=== PATIENT | female | born 1935 | race Caucasian/White ===

== ENCOUNTER 2017-12-21 17:15 | Observation (INO) | payer OTHER ==
--- OUTSIDE RECORDS SUMMARY | 2017-12-21 17:18 | XMS REPORT | Clinical Summary ---
:1935 Author Organization [facility] Address [address] [place] [address] Care Team Providers Name Role Phone Kvng Leal MD Primary Care Provider Allergies Active Allergy Reactions Severity Noted Date Comments Dye 11/26/2015 Probable contrast dye allergy Penicillins 11/26/2015 Current Medications Prescription Sig. Disp. Refills Start End Status Date Date ALPRAZolam (XANAX) 0.5 TAKE 1 TABLET BY Active MG tablet MOUTH TWICE A DAY NEEDED FOR ANXIETY fluvastatin XL (LESCOL fluvastatin ER 80 Active XL) 80 mg 24 hr tablet mg tablet,extended release 24 hr aspirin (ECOTRIN) 81 Take 1 tablet(s) Active MG enteric coated every day by oral tablet route. levothyroxine levothyroxine 75 Active (SYNTHROID, mcg tablet LEVOTHROID) 75 MCG tablet cholecalciferol, Take 1,000 Units Active vitamin D3, (VITAMIN by mouth daily. D3) 1,000 unit tablet Ca carb-D3-mag Take 300 mg by Active [id number] mouth 2 (two) (CALTRATE + D3 PLUS times a day. MINERALS) 300 mg-800 unit -25 mg-0.5 mg tablet multivitamin with Take 1 tablet by Active minerals tablet mouth 2 (two) times a day. coenzyme Q10 100 mg Take 200 mg by Active capsule mouth 2 (two) times a day. yvqlz-5i-ntn-epa-fish Take 1,200 mg by Active oil (FISH OIL) mouth 2 (two) 720-1,200 mg capsule times a day. meclizine (ANTIVERT) Take 25 mg by Active 25 mg tablet mouth 3 (three) times a day as needed for dizziness. balsalazide (COLAZAL) Take 2,250 mg by Active 750 mg capsule mouth 3 (three) times a day. HUMIRA 40 mg/0.8 mL INJECT 0.8ML 2 mL 2 04/09/20 Active injectionIndications: (40MG TOTAL) 17 018 Ankylosing spondylitis UNDER THE SKIN EVERY 14 DAYS pyridoxine, vitamin Take 100 mg by Active B6, (B-6) 100 MG mouth 3 (three) tablet times a day. LACTOBACILLUS Take by mouth. Active ACIDOPHILUS (PROBIOTIC ACIDOPHILUS ORAL) pantoprazole Take 1 tablet (20 90 tablet 1 07/02/19 Active (PROTONIX) 20 MG EC mg total) by 18 tablet mouth daily. quinapril (ACCUPRIL) Take 1 tablet (20 90 tablet 3 07/27/19 Active 20 MG tablet mg total) by 18 019 mouth nightly. ezetimibe (ZETIA) 10 Take 1 tablet (10 90 tablet 3 07/27/19 Active mg tabletIndications: mg total) by 18 Hypercholesteremia mouth once daily. amLODIPine (NORVASC) amlodipine 2.5 mg Discontinued 2.5 MG tablet tablet 018 betamethasone valerate APPLY ONCE DAILY Discontinued 0.12 % foam AFTER SHOWER FOR 017 1 TO 2 WKS NEEDED pantoprazole Take 1 tablet (20 90 tablet 3 06/24/ (PROTONIX) 20 MG EC mg total) by 17 018 tablet mouth daily. ezetimibe (ZETIA) 10 Take 1 tablet (10 90 tablet 3 07/01/19 Discontinued mg tabletIndications: mg total) by 17 018 Hypercholesteremia mouth once daily. pantoprazole TAKE 1 TABLET BY 90 tablet 1 08/05/ Discontinued (PROTONIX) 20 MG EC MOUTH EVERY DAY 17 018 tablet HUMIRA 40 mg/0.8 mL INJECT 0.8ML 2 mL 2 11/25/19 Discontinued injectionIndications: (40MG TOTAL) 17 017 Ankylosing spondylitis UNDER THE SKIN EVERY 14 DAYS quinapril-hydrochlorot Take 1 tablet by 30 tablet 0 12/16/19 Discontinued hiazide (ACCURETIC) mouth daily. 17 017 20-12.5 mg per tabletIndications: Essential hypertension HUMIRA 40 mg/0.8 mL INJECT 0.8ML 3.92 mL 1 02/16/20 Discontinued injectionIndications: (40MG TOTAL) 17 017 Ankylosing spondylitis UNDER THE SKIN EVERY 14 DAYS quinapril-hydrochlorot Take 1 tablet by 90 tablet 3 03/18/20 Discontinued hiazide (ACCURETIC) mouth daily. 17 018 20-12.5 mg per tabletIndications: Essential hypertension cyanocobalamin 500 MCG Take 500 mcg by Discontinued tablet mouth 2 (two) 018 times a day. quinapril-hydrochlorot Take 1 tablet by 90 tablet 1 07/02/19 Discontinued hiazide (ACCURETIC) mouth daily. 18 018 20-12.5 mg per tabletIndications: Essential hypertension quinapril (ACCUPRIL) Take 1 tablet (20 30 tablet 5 07/05/19 Discontinued 20 MG tablet mg total) by 18 018 mouth nightly. 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 Hypercholesteremia 11/26/2015 Hypertension 11/26/2015 Hypothyroidism 11/26/2015 Encounters Date Type Specialty Care Team Description 10/06/2017 Orders Only Rheumatology ProviderKam MD 10/05/2017 Office Visit Rheumatology Amy Mccracken, Ankylosing spondylitis of multiple sites in spine (Primary Dx); Enteropathic arthritis; High risk medication use; Localized edema; Paresthesia; Ulcerative colitis without complications, unspecified location 08/19/2017 Telephone Cardiology Celestino Barcenas MA Results (carotid ULTRA + vein duplex) 08/19/2017 Orders Only Cardiology Celestino Barcenas MA 08/05/2017 Orders Only Cardiology Amanuel, DVT (deep vein thrombosis) BORIS Dyer in (Primary Dx) 07/27/2017 Office Visit Cardiology Sun Bertrand Bilateral carotid bruits ( Primary Dx); MD Oscar Hypercholesteremia 07/05/2017 Refill Rheumatology Sarah Shelby MA 07/02/2017 Refill Rheumatology Sarah Shelby MA Essential hypertension 07/02/2017 Orders Only Rheumatology Kam Horta MD 06/28/2017 Office Visit Rheumatology Amy Mccracken Ankylosing spondylitis of multiple sites in spine (Primary Dx); Enteropathic arthritis; Malignant neoplasm of ascending colon 05/05/2017 Telephone Rheumatology Sarah Shelby MA 04/09/2017 Refill Rheumatology Amy Mccracken Ankylosing spondylitis MD 03/18/2017 Refill Cardiology Lorna, Med Refill BORIS Corral 02/15/2017 Refill Rheumatology Amy Mccracken Ankylosing spondylnica HOFFMAN 01/13/2017 Telephone Rheumatology Sarah Shelby MA 12/24/2016 Orders Only Rheumatology ProviderKam MD 12/23/2016 Hospital Encounter Radiology Keyona Winston Visit for screening MD Ghazal mammogram 12/23/2016 Office Visit Rheumatology Amy Mccracken Ankylosing spondylnica (Primary Dx); Anemia of chronic disease; Enteropathic arthritis; Special screening for malignant neoplasm after 12/20/2016 Social History Tobacco Use Types Packs/Day Years Used Date Never Smoker Alcohol Use Drinks/Week oz/Week Comments No Sex Assigned at Date Recorded Not on file Last Filed Vital Signs Vital Sign Reading Time Taken Blood Pressure 124/70 07/27/2017 1:28 PM [employer] Pulse 80 07/27/2017 1:27 PM [employer] Temperature - - Respiratory Rate - - Oxygen Saturation - - Inhaled Oxygen Concentration - - Weight 62.6 kg (138 lb) 07/27/2017 1:27 PM [employer] Height 160 cm (5' 3") 06/28/2017 11:19 AM [employer] Body Mass Index 24.45 07/27/2017 1:27 PM [employer] Plan of Treatment Date Type Specialty Care Team Description 12/28/2017 Office Visit Cardiology Sun Bertrand MD [address] [place] [address] 03/31/2018 [place] [address] [facility] [address] [place] [address] Health Maintenance Due Date Last Done Comments SHINGRIX VACCINE (#1) 1985 ZOSTER VACCINE 1995 PNEUMOCOCCAL POLYSACCHARIDE VACCINE AGE 65 AND OVER 2000 PNEUMOCOCCAL-13 2000 INFLUENZA VACCINE 12/29/2017 Procedures Procedure Name Priority Date/Time Associated Diagnosis Comments VITAMIN B12 LEVEL Routine 10/05/2017 12:43 Paresthesia Results for this PM CDT procedure are in the results section. [id number] Routine 09/25/2017 12:00 AM CDT US CAROTID DUPLEX Routine 08/05/2017 2:41 Bilateral carotid Results for this BILATERAL PM [employer] bruits procedure are in the results section. US DUPLEX VENOUS Routine 08/05/2017 2:36 DVT (deep vein Results for this LOWER EXTREMITY LEFT PM [employer] thrombosis) in procedure are in the results section. [id number] Routine 06/20/2017 12:00 AM [employer] MAMMO SCREENING W CAD Routine 12/23/2016 2:58 Visit for screening Results for this BILATERAL PM CDT mammogram procedure are in the results section. HAPTOGLOBIN Routine 12/23/2016 12:15 Anemia of chronic Results for this PM CDT disease procedure are in the results section. ANTIBODY SCREEN Routine 12/23/2016 12:15 Anemia of chronic Results for this PM CDT disease procedure are in the results section. FOLATE RBC (GROUP Routine 12/23/2016 12:15 Anemia of chronic Results for this TEST) PM CDT disease procedure are in the results section. VITAMIN B12 LEVEL Routine 12/23/2016 12:15 Anemia of chronic Results for this PM CDT disease procedure are in the results section. RETICULOCYTE COUNT, Routine 12/23/2016 12:15 Anemia of chronic Results for this AUTOMATED PM CDT disease procedure are in the results section. HLA-B27 ANTIGEN Routine 12/23/2016 12:15 Ankylosing Results for this PM CDT spondylitis procedure are in the results section. after 12/20/2016 Results Vitamin B12 level (10/05/2017 12:43 PM)Only the most recent of2 resultswithin the time period is included. Vitamin B12 >2000 (H) 232 - 1245 pg/mL [facility] Specimen Blood Narrative Performed At Performed at:01 - [facility], [id number] B Operator: Emanuel Kenny MD, Phone:[phone] Performing Organization Address City/State/Zipcode Phone Number [facility] Miscellaneous Lab Result (09/25/2017)Only the most recent of2 resultswithin the time period is included. Specimen Blood Narrative Performed At Pv carotid duplex (08/05/2017 2:41 PM) Narrative Performed At [facility] Carotid Artery Ultrasound Report Pat.Name:Wei AGUILAR.ID:[id number] .Date: 08/05/2017Refer.MD:SUN BERTRAND MD Exam Time: 1:51:00 PMStudy Type:Carotid DOBAge:1935,82Y Sex: FEMALE Sonogrphr: Luann Ledezma RDMS, RDCS, RVT Pat. Stat.:Outpatient Room:[place] [address]: [id number] Echo Event ID:[id number] Order ID:[id number] Reason for Study:Carotid bruit bilateral Race:C SUMMARY: PHYSICAL ASSESSMENT BloodPulsesCarotid Pressure Carotid TemporalBruit Right 172/70 ++0 Left 168/68 ++0 CAROTID ARTERY SCAN RIGHT:There is irregular, hard and calcified plaque in the common carotid artery. There is hard plaque noted in the bulb extending into the proximal internal and external carotid artery.Colorflow is minimally disturbed.Vertebral artery flow is antegrade. LEFT: There is intimal thickeningin the common carotid artery. There is irregular, hard and calcified plaque noted in the bulb extending into the proximal internal and external carotid artery. The distalinternal carotid artery is tortuous. Internal carotid arteries are not hemodynamically significant.Vertebral artery flow is normal. PRELIMINARY FINDINGS <50%stenosis in the bilateral internal carotid artery. PHYSICIAN INTERPRETATION Bilateral carotid artery examination demonstrates plaque in the bilateral internal carotid artery without hemodynamically significant stenosis. (<50%) Carotid Findings:RightLeft Verteb.Flw AntegradeAntegrade Subclavian TriphasicTriphasic MEASUREMENTS: DOPPLER Right SCA Prox SCA Prox PSV 113 cm/sSCA Prox EDV 0 cm/s Right CCA Dist CCA Dist PSV90 cm/sCCA Dist EDV13.9 cm/s Right CCA Mid CCA Mid PSV 98.9 cm/sCCA Mid EDV 11.1 cm/s Right CCA Prox CCA Prox PSV66.2 cm/sCCA Prox EDV9.05 cm/s Right Bulb Bulb PSV 106 cm/sBulb EDV13.3 cm/s Right ECA Prox ECA Prox PSV 111 cm/sECA Prox EDV 0 cm/s Right ICA Dist ICA Dist PSV69.3 cm/Gerard Dist EDV9.24 cm/s Right ICA Mid ICA Mid PSV 94.2 cm/Gerard Mid EDV 9.42 cm/s Right ICA Prox ICA Prox PSV82.9 cm/Gerard Prox EDV5.92 cm/s Right Vertebral Vertebral PSV 35.6 cm/sVertebral EDV 3.96 cm/s Left SCA Prox SCA Prox PSV 152 cm/sSCA Prox EDV 0 cm/s Left CCA Dist CCA Dist PSV84.1 cm/sCCA Dist EDV13.6 cm/s Left CCA Mid CCA Mid PSV 89.8 cm/sCCA Mid EDV 9.16 cm/s Left CCA Prox CCA Prox PSV77.3 cm/sCCA Prox EDV4.83 cm/s Left Bulb Bulb PSV84.4 cm/sBulb EDV8.79 cm/s Left ECA Prox ECA Prox PSV 128 cm/sECA Prox EDV 0 cm/s Left ICA Dist ICA Dist PSV69.7 cm/Gerard Dist EDV9.96 cm/s Left ICA Mid ICA Mid DMM715 cm/Gerard Mid EDV 32 cm/s Left ICA Prox ICA Prox PSV75.6 cm/Gerard Prox EDV10.5 cm/s Left Vertebral Vertebral PSV 45.4 cm/sVertebral EDV 5.67 cm/s Right ICA/CCA Ratio ICA/CCA PSV0.838 Left ICA/CCA Ratio ICA/CCA PSV0.842 Signed 08/16/2017 10:58 AM Sun Bertrand MD Procedure Note Interface, Radiology Results In - 08/16/2017 10:58 AM CDT [facility] Carotid Artery Ultrasound Report Pat.Name: RADHA AGUILAR Pat.ID: [id number] St.Date: 08/05/2017 Refer.MD: SUN BERTRAND MD Exam Time: 1:51:00 PM Study Type:Carotid Age: 1 1935,82Y Sex: FEMALE Sonogrphr: Luann Ledezma, LAURA, RDCS, RVT Pat. Stat.:Outpatient Room: [facility] 4: [id number] Echo Event ID:[id number] Order ID: [id number] Reason for Study:Carotid bruit bilateral Race: C SUMMARY: PHYSICAL ASSESSMENT Blood Pulses Carotid Pressure Carotid Temporal Bruit Right 172/70 + + 0 Left 168/68 + + 0 CAROTID ARTERY SCAN RIGHT: There is irregular, hard and calcified plaque in the common carotid artery. There is hard plaque noted in the bulb extending into the proximal internal and external carotid artery. Colorflow is minimally disturbed. Vertebral artery flow is antegrade. LEFT: There is intimal thickening in the common carotid artery. There is irregular, hard and calcified plaque noted in the bulb extending into the proximal internal and external carotid artery. The distal internal carotid artery is tortuous. Internal carotid arteries are not hemodynamically significant. Vertebral artery flow is normal. PRELIMINARY FINDINGS <50% stenosis in the bilateral internal carotid artery. PHYSICIAN INTERPRETATION Bilateral carotid artery examination demonstrates plaque in the bilateral internal carotid artery without hemodynamically significant stenosis. (<50%) Carotid Findings: Right Left Verteb.Flw Antegrade Antegrade Subclavian Triphasic Triphasic MEASUREMENTS: DOPPLER Right SCA Prox SCA Prox PSV 113 cm/s SCA Prox EDV 0 cm/s Right CCA Dist CCA Dist PSV 90 cm/s CCA Dist EDV 13.9 cm/s Right CCA Mid CCA Mid PSV 98.9 cm/s CCA Mid EDV 11.1 cm/s Right CCA Prox CCA Prox PSV 66.2 cm/s CCA Prox EDV 9.05 cm/s Right Bulb Bulb PSV 106 cm/s Bulb EDV 13.3 cm/s Right ECA Prox ECA Prox PSV 111 cm/s ECA Prox EDV 0 cm/s Right ICA Dist ICA Dist PSV 69.3 cm/s ICA Dist EDV 9.24 cm/s Right ICA Mid ICA Mid PSV 94.2 cm/s ICA Mid EDV 9.42 cm/s Right ICA Prox ICA Prox PSV 82.9 cm/s ICA Prox EDV 5.92 cm/s Right Vertebral Vertebral PSV 35.6 cm/s Vertebral EDV 3.96 cm/s Left SCA Prox SCA Prox PSV 152 cm/s SCA Prox EDV 0 cm/s Left CCA Dist CCA Dist PSV 84.1 cm/s CCA Dist EDV 13.6 cm/s Left CCA Mid CCA Mid PSV 89.8 cm/s CCA Mid EDV 9.16 cm/s Left CCA Prox CCA Prox PSV 77.3 cm/s CCA Prox EDV 4.83 cm/s Left Bulb Bulb PSV 84.4 cm/s Bulb EDV 8.79 cm/s Left ECA Prox ECA Prox PSV 128 cm/s ECA Prox EDV 0 cm/s Left ICA Dist ICA Dist PSV 69.7 cm/s ICA Dist EDV 9.96 cm/s Left ICA Mid ICA Mid PSV 150 cm/s ICA Mid EDV 32 cm/s Left ICA Prox ICA Prox PSV 75.6 cm/s ICA Prox EDV 10.5 cm/s Left Vertebral Vertebral PSV 45.4 cm/s Vertebral EDV 5.67 cm/s Right ICA/CCA Ratio ICA/CCA PSV 0.838 Left ICA/CCA Ratio ICA/CCA PSV 0.842 Signed 08/16/2017 10:58 AM Sun Bertrand MD Performing Organization Address City/State/Zipcode Phone Number [facility] [address] [place] [address] Pv duplex venous lower extremity (08/05/2017 2:36 PM) Narrative Performed At [facility].Name:Wei AGUILAR.ID:[id number] .Date: 08/05/2017Refer.MD:SUN BERTRAND MD Exam Time: 2:28:00 PMStudy Type:Vascular DOBAge:1935,82Y Sex: FEMALE Sonogrphr: Luann Ledezma, JANISMS, RDCS, RVT Pat. Stat.:Outpatient Room:[place] [address] Echo Event ID:[id number] Order ID:[id number] Reason for Study:Left leg swelling, chemotherapy Race:C SUMMARY: * Normal Reflux Criteria:< 0.5 seconds * Abnormal Reflux Criteria:> or equal to 0.5 seconds DUPLEX SCAN OBSERVATIONS Deep VeinsSuperficial Veins Left RightLeft EIV NormalGSV (prox) NormalNormal CFV Normal (above knee) Femoral Normal GSV (dist) Normal Normal Profunda Normal (below knee) Popliteal Normal PT (prox) NormalSSV Normal Normal PT (dist) Normal Peroneal Normal PRELIMINARY FINDINGS There is normal compressibility with no evidence of echogenic material noted within the lumen of the visualized veins.Colorflow and Doppler signals are normal. PHYSICIAN INTERPRETATION Venous examination of the left lower extremity demonstrates no deep vein thrombosis of the left lower extremity. Signed 08/16/2017 10:57 AM Sun Bertrand MD Procedure Note Interface, Radiology Results In - 08/16/2017 10:57 AM CDT Pat.Name: RADHA AGUILAR Kelley.ID: [id number] .Date: 08/05/2017 Refer.MD: SUN BERTRAND MD Exam Time: 2:28:00 PM Study Type:Vascular Age: 1 1935,82Y Sex: FEMALE Sonogrphr: Luann Ledezma, LAURA, RDCS, RVT Pat. Stat.:Outpatient Room: [facility] - 4: [address] Echo Event ID:[id number] Order ID: [id number] Reason for Study:Left leg swelling, chemotherapy Race: C SUMMARY: * Normal Reflux Criteria: < 0.5 seconds * Abnormal Reflux Criteria: > or equal to 0.5 seconds DUPLEX SCAN OBSERVATIONS Deep Veins Superficial Veins Left Right Left EIV Normal GSV (prox) Normal Normal CFV Normal (above knee) Femoral Normal GSV (dist) Normal Normal Profunda Normal (below knee) Popliteal Normal PT (prox) Normal SSV Normal Normal PT (dist) Normal Peroneal Normal PRELIMINARY FINDINGS There is normal compressibility with no evidence of echogenic material noted within the lumen of the visualized veins. Colorflow and Doppler signals are normal. PHYSICIAN INTERPRETATION Venous examination of the left lower extremity demonstrates no deep vein thrombosis of the left lower extremity. Signed 08/16/2017 10:57 AM Sun Bertrand MD Performing Organization Address [facility] Phone Number [facility] [address] [place] [address] Mammo Screening w Cad Bilateral (12/23/2016 2:58 PM) Narrative Performed At EXAMINATION:MAMMO SCREENING W CAD BILATERAL [place] Computer-assisted detection was utilized in the interpretation of this exam. COMPARISONS:04/18/2014-03/24/2012 INDICATION:Routine screening FINDINGS: The breast parenchyma is predominantly fatty. There is no significant change when compared to previous examinations. IMPRESSION: No mammographic evidence of malignancy. RECOMMENDATION: Annual mammography and correlation with physical examination. BI-RADS 2: BENIGN DWS01 Performing Organization Address [facility] Phone Number [facility] [address] [place] [address] Reticulocyte count, automated (12/23/2016 12:15 PM) Retic count, manual 1.9 0.6 - 2.6 % [facility] Specimen Blood Narrative Performed At Performed at: - [id number] B Operator: Emanuel Kenny MD, Phone:[phone] Performing Organization Address [facility] Phone Number [facility] HLA-B27 antigen (12/23/2016 12:15 PM) HLA B27 Negative [facility] Comment: HLA-B*27 Negative HLA allele interpretation for all loci based on IMGT/HLA database version 3.25.0 This test was developed and its performance characteristics determined by [facility].It has not been cleared or approved by the Food and Drug Administration. [facility] CLIA ID Number [id number] This test was performed using PCR (Polymerase Chain Reaction)/SSOP (Sequence Specific Oligonucleotide Probes) technique.SBT (Sequence Based Typing) and/or SSP (Sequence Specific Primers) may be used as supplemental methods when necessary.Please contact HLA Customer Service at if you have any questions. Director of HLA Laboratory Dr Joby Rapp, PhD Specimen Blood Narrative Performed At Performed at: - [facility] [place] [id number] B Operator: Joby Rapp PhD, Phone:[phone] Performing Organization Address [facility] Phone Number [facility] Antibody screen (12/23/2016 12:15 PM) Antibody screen Negative Negative [facility] Specimen Blood Narrative Performed At Performed at: - Lab[id number] B Operator: Emanuel Kenny MD, Phone:[phone] Performing Organization Address [facility] Phone Number [facility] Haptoglobin (12/23/2016 12:15 PM) Haptoglobin 191 34 - 200 mg/dL [facility] 02 Specimen Blood Narrative Performed At Performed at:02 - [id number] B Operator: Patrick Finney MD, Phone:[phone] Performing Organization Address [facility] Phone Number [facility] Folate RBC (group test) (12/23/2016 12:15 PM) Folate, hemolysate CANCELED ng/mL [facility] Comment: No frozen whole blood received. Result canceled by the ancillary HCT 29.3 (L) 34.0 - 46.6 % [facility] Folate, RBC CANCELED ng/mL [facility] Comment: Unable to calculate result since non-numeric result obtained for component test. Result canceled by the ancillary Specimen Blood Narrative Performed At Performed at:01 - [facility] [address], [id number] B Operator: Emanuel Kenny MD, Phone:[phone] Performing Organization Address City/State/Zipcode Phone Number [facility] after 12/20/2016 Insurance Payer Benefit Plan / Group Subscriber ID Type Phone Address AETNA MEDICARE AETNA MEDICARE HMO/PPO [facility] xxxxxxxx HMO SAMANTHA A y [phone] [id number]
[2017-12-21] MEDS ORDERED: AMLODIPINE 5 MG TAB ONE (18:16)
[2017-12-21 18:46] LABS: Absolute Lymphocytes (CBC) 1.2 K/uL (0.7-4.9); Absolute Monocytes 0.5 K/uL (0.1-1.3); Absolute Neutrophil 4.8 K/uL (1.8-8.0); Basophils % 0.5 % (0-1.3); Eosinophils % 0.9 % (0-4.4); Hematocrit 30.7 % (36.0-45.0); Lymphocytes % 18.9 % (15.3-44.8); MCH 32.2 pg (27.0-35.0); MCV 95.6 fL (80-100); MPV 7.9 fL (7.6-11.3); Monocytes % 6.9 % (3.3-12.3); Protime INR 0.99; RBC Red Blood Cell Count 3.21 M/uL (3.86-4.86)
[2017-12-21 18:52] LABS: ALT/SGPT 14 U/L (12-78); AST/SGOT 20 U/L (15-37); Albumin 3.7 g/dL (3.4-5.0); Alkaline Phosphatase 63 U/L (45-117); BUN Blood Urea Nitrogen 21 mg/dL (7-18); Bicarbonate 29 mmol/L (21-32); Bilirubin Direct 0.1 mg/dL (0-0.2); Bilirubin Total 0.3 mg/dL (0.2-1.0); CKMB Creatine Kinase MB < 1.0 ng/mL (0.3-3.6); Creatine Phosphokinase 45 U/L (26-192); Glucose Level 108 mg/dL (74-106); Magnesium 2.4 mg/dL (1.8-2.4); NT PRO-BNP 506 pg/mL (<450); Potassium 3.6 mmol/L (3.5-5.1); Protein, Total 7.3 g/dL (6.4-8.2); Sodium Level 143 mmol/L (136-145)
--- NOTE | 2017-12-21 19:16 | ER ---
Nurse's Notes [facility] Name: Chasity Aguilar Age: 82 yrs Sex: Female : 1935 Arrival Date: 12/21/2017 Time: 17:18 Bed 5 Private MD: Kvng Leal T Diagnosis: Weakness;Essential (primary) hypertension Presentation: 12/21 17:20 Presenting complaint: Patient states: Sent by home health for high BP. Transition of care: patient was not received from another setting of care. Onset of symptoms was December 21, 2017. Risk Assessment: Do you want to hurt yourself or someone else? Patient reports no desire to harm self or others. Initial Sepsis Screen: Does the patient meet any 2 criteria? No. Patient's initial sepsis screen is negative. Does the patient have a suspected source of infection? No. Patient's initial sepsis screen is negative. Care prior to arrival: None. 17:20 Method Of Arrival: Wheelchair aj 17:20 Acuity: NATE 3 aj Triage Assessment: 17:24 General: Appears in no apparent distress. comfortable, Behavior is calm, cooperative, aj appropriate for age. Pain: Denies pain. Neuro: Level of Consciousness is awake, alert, obeys commands, Oriented to person, place, time, situation, Appropriate for age. Respiratory: Airway is patent Respiratory effort is even, unlabored, Respiratory pattern is regular, symmetrical. Derm: Skin is intact, is healthy with good turgor, Skin is pink, warm \T\ dry. normal. Historical: - Allergies: 17:24 PENICILLINS; aj - Home Meds: 17:24 levothyroxine 75 mcg tab daily, skip Wednesday [Active]; quinapril 20 mg Oral tab 1 tab 2 aj times per day [Active]; balsalazide 750 mg Oral cap 3 caps 3 times per day [Active]; Humira 40 mg/0.8 mL subcutaneous sykt [Active]; fluvastatin 80 mg oral Tb24 1 tab once daily [Active]; Protonix 20 mg oral TbEC 1 tab once daily [Active]; Zetia 10 mg Oral tab 1 tab once daily [Active]; Xanax 0.5 mg Oral tab 1 tab as needed [Active]; meclizine 25 mg Oral tab as needed [Active]; amlodipine 5 mg tab 1 tab once daily [Active]; aspirin 81 mg Oral chew 1 tab once daily [Active]; - PMHx: 17:24 Hypertension; Hypothyroidism; Cancer; aj - PSHx: 17:24 colon resection; aj - Immunization history:: Adult Immunizations up to date. - Social history:: Smoking status: Patient/guardian denies using tobacco. - Ebola Screening: : Patient negative for fever greater than or equal to 101.5 degrees Fahrenheit, and additional compatible Ebola Virus Disease symptoms Patient denies exposure to infectious person Patient denies travel to an Ebola-affected area in the 21 days before illness onset No symptoms or risks identified at this time. - Family history:: not pertinent. Screenin:41 Abuse screen: Denies threats or abuse. Denies injuries from another. Nutritional sv screening: No deficits noted. Tuberculosis screening: No symptoms or risk factors identified. Fall Risk None identified. Assessment: 17:35 General: Appears in no apparent distress. comfortable, Behavior is calm, cooperative, sv appropriate for age. Pain: Denies pain. Neuro: Level of Consciousness is awake, alert, obeys commands, Oriented to person, place, time, situation, Moves all extremities. Full function Gait is steady, Speech is normal, Denies dizziness, numbness headache. Cardiovascular: Denies shortness of breath, Patient's skin is warm and dry. Pulses are 3+ in right radial artery and left radial artery Edema is 1+ to left midcalf and left ankle. Respiratory: Respiratory effort is even, unlabored, Respiratory pattern is regular, symmetrical. GI: No signs and/or symptoms were reported involving the gastrointestinal system. : No signs and/or symptoms were reported regarding the genitourinary system. Derm: Skin is normal, Spouse reports cheeks are flushed. Musculoskeletal: No signs and/or symptoms reported regarding the musculoskeletal system. 18:25 Reassessment: Patient appears in no apparent distress at this time. No changes from sv previously documented assessment. Patient and/or family updated on plan of care and expected duration. Pain level reassessed. Patient is alert, oriented x 3, equal unlabored respirations, skin warm/dry/pink. 19:18 Reassessment: Patient appears in no apparent distress at this time. Patient is alert, lp1 oriented x 3, equal unlabored respirations, skin warm/dry/pink. Assisted patient with bedpan Patient states feeling better. Patient states symptoms have improved. 21:08 Reassessment: report given to Aruna for 412. ak1 Vital Signs: 17:24 BP 236 / 77; Pulse 79; Resp 16; Temp 99.4; Pulse Ox 99% on R/A; Weight 60.33 kg; Height aj 5 ft. 3 in. (160.02 cm); 17:41 BP 182 / 85; Pulse 80; Resp 16; Pulse Ox 100% on R/A; sv 18:10 BP 247 / 86; Pulse 81; Resp 20; Pulse Ox 100% on R/A; tw2 19:18 BP 205 / 74; Pulse 74; Resp 13; Pulse Ox 100% on R/A; Pain 0/10; lp1 19:30 BP 197 / 64; Pulse 72; Resp 20; Pulse Ox 100% on R/A; lp1 19:52 BP 180 / 74; Pulse 77; Resp 14; Pulse Ox 99% on R/A; lp1 20:09 BP 170 / 49; Pulse 83; Resp 20; Pulse Ox 100% on R/A; lp1 21:09 BP 186 / 76; Pulse 80; Resp 22; Temp 98.6(TE); Pulse Ox 100% on R/A; Pain 0/10; ak1 17:24 Body Mass Index 23.56 (60.33 kg, 160.02 cm) ED Course: 17:18 Patient arrived in ED. mr 17:18 Kvng Leal MD is Private Physician. mr 17:21 Triage completed. aj 17:24 Arm band placed on left wrist. Patient placed in an exam room. aj 17:26 Roberto Agrawal MD is Attending Physician. [facility] 17:26 Tiana Pillai, JUDITH is Primary Nurse. sv 17:41 Patient has correct armband on for positive identification. Placed in gown. Bed in low sv position. Call light in reach. Side rails up X2. Adult w/ patient. Pulse ox on. NIBP on. Door closed. Warm blanket given. Head of bed elevated. 17:59 EKG done, by certified dialysis technician. reviewed by Roberto Agrawal MD. 3 18:05 Initial lab(s) drawn, by ma, sent to lab. Accessed Port-a-Cath. using accessed w/ # 20 sv Moore needle, ,sterile technique, per hospital protocol. Clean \T\ dry. Dressing intact. Good blood return. Flushes easily. 18:10 X-ray completed. Portable x-ray completed in exam room. Patient tolerated procedure ag1 well. 18:10 XRAY Chest (1 view) In Process Unspecified. EDMS 18:10 Basic Metabolic Panel Sent. sv 18:10 CBC with Diff Sent. sv 18:11 Ckmb Sent. sv 18:11 X-ray(s) taken. sv 18:12 Awaiting lab results, Awaiting radiology results. sv 18:14 TSH Sent. sv 19:02 Primary Nurse role handed off by Tiana Pillai, JUDITH sv 19:02 Report given to Natali WONG and Bruno WONG. sv 19:14 Angelica Haile MD is Hospitalizing Provider. catracho 19:17 Natali Talley, JUDITH is Primary Nurse. lp1 19:19 No provider procedures requiring assistance completed. Patient admitted, IV remains in lp1 place. Administered Medications: 18:22 Drug: Norvasc 5 mg Route: PO; sv 19:01 Follow up: Response: No adverse reaction sv 19:16 CANCELLED (Duplicate Order): HydrALAZINE 25 mg PO once catracho 19:40 Drug: hydrALAZINE 10 mg Route: IV; Rate: per protocol; Site: Port-a-cath; lp1 19:54 Follow up: Response: Blood pressure is lowered; IV Status: Completed infusion lp1 19:41 Drug: hydrALAZINE 10 mg Route: PO; lp1 19:54 Follow up: Response: Blood pressure is lowered lp1 19:45 Not Given (Med not available): Quinapril 20 mg PO once lp1 Output: 19:00 Urine: 100ml (Voided); Total: 100ml. sv 19:18 Urine: 150ml (Voided); Total: 250ml. lp1 19:52 Urine: 150ml (Voided); Total: 400ml. lp1 Outcome: 19:16 Decision to Hospitalize by Provider. catracho 19:19 Condition: stable lp1 19:41 Instructed on the need for admit. lp1 21:08 Admitted to [facility] accompanied by tech, family with patient, via wheelchair, room 412, ak1 with chart, Report called to [facility] 412 21:31 Patient left the ED. bb Signatures: Dispatcher [employer] EDMS Tiana Pillai, RN RN Deepika Muniz, RN RN Roberto Arrieta MD MD cha Rivera, Maria mr Flora, Esme, RN RN bb Natali Talley, RN RN lp1 Ni Morton, RN RN ak1 Hortensia Shannon1 Bisi Siddiqui RN RN tw2 Lashanda Carter 3 Corrections: (The following items were deleted from the chart) 18:23 18:10 Pulse 81bpm; Resp 20bpm; Pulse Ox 100% RA; tw2 tw2
--- NOTE | 2017-12-21 19:17 | EDPHYS ---
Physician Documentation [facility] Name: Chasity Aguilar Age: 82 yrs Sex: Female : 1935 Arrival Date: 12/21/2017 Time: 17:18 Bed 5 Private MD: Kvng Leal T ED Physician Roberto Agrawal HPI: 12/21 17:47 This 82 yrs old Female presents to ER via Wheelchair with complaints of High catracho Blood Pressure. 17:47 The patient has elevated blood pressure and discovered this at home. Onset: The catracho symptoms/episode began/occurred today, yesterday. Modifying factors: The symptoms are aggravated by activity, The symptoms are alleviated by remaining still. Associated signs and symptoms: The patient has no apparent associated signs or symptoms. Severity of symptoms: At its worst the blood pressure was mild, in the emergency department the blood pressure is unchanged. The patient has not experienced similar symptoms in the past. Historical: - Allergies: 17:24 PENICILLINS; aj - Home Meds: 17:24 levothyroxine 75 mcg tab daily, skip Wednesday [Active]; quinapril 20 mg Oral tab 1 tab 2 aj times per day [Active]; balsalazide 750 mg Oral cap 3 caps 3 times per day [Active]; Humira 40 mg/0.8 mL subcutaneous sykt [Active]; fluvastatin 80 mg oral Tb24 1 tab once daily [Active]; Protonix 20 mg oral TbEC 1 tab once daily [Active]; Zetia 10 mg Oral tab 1 tab once daily [Active]; Xanax 0.5 mg Oral tab 1 tab as needed [Active]; meclizine 25 mg Oral tab as needed [Active]; amlodipine 5 mg tab 1 tab once daily [Active]; aspirin 81 mg Oral chew 1 tab once daily [Active]; - PMHx: 17:24 Hypertension; Hypothyroidism; Cancer; aj - PSHx: 17:24 colon resection; aj - Immunization history:: Adult Immunizations up to date. - Social history:: Smoking status: Patient/guardian denies using tobacco. - Ebola Screening: : Patient negative for fever greater than or equal to 101.5 degrees Fahrenheit, and additional compatible Ebola Virus Disease symptoms Patient denies exposure to infectious person Patient denies travel to an Ebola-affected area in the 21 days before illness onset No symptoms or risks identified at this time. - Family history:: not pertinent. ROS: 17:47 Constitutional: Negative for fever, chills, and weight loss, Eyes: Negative for injury, catracho pain, redness, and discharge, ENT: Negative for injury, pain, and discharge, Neck: Negative for injury, pain, and swelling, Cardiovascular: Negative for chest pain, palpitations, and edema, Respiratory: Negative for shortness of breath, cough, wheezing, and pleuritic chest pain, Abdomen/GI: Negative for abdominal pain, nausea, vomiting, diarrhea, and constipation, Back: Negative for injury and pain, : Negative for injury, bleeding, discharge, and swelling, MS/Extremity: Negative for injury and deformity, Skin: Negative for injury, rash, and discoloration, Neuro: Negative for headache, weakness, numbness, tingling, and seizure, Psych: Negative for depression, anxiety, suicide ideation, homicidal ideation, and hallucinations, Allergy/Immunology: Negative for hives, rash, and allergies, Endocrine: Negative for neck swelling, polydipsia, polyuria, polyphagia, and marked weight changes, Hematologic/Lymphatic: Negative for swollen nodes, abnormal bleeding, and unusual bruising. Exam: 17:48 Constitutional: This is a well developed, well nourished patient who is awake, alert, catracho and in no acute distress. Head/Face: Normocephalic, atraumatic. Eyes: Pupils equal round and reactive to light, extra-ocular motions intact. Lids and lashes normal. Conjunctiva and sclera are non-icteric and not injected. Cornea within normal limits. Periorbital areas with no swelling, redness, or edema. ENT: Nares patent. No nasal discharge, no septal abnormalities noted. Tympanic membranes are normal and external auditory canals are clear. Oropharynx with no redness, swelling, or masses, exudates, or evidence of obstruction, uvula midline. Mucous membranes moist. Neck: Trachea midline, no thyromegaly or masses palpated, and no cervical lymphadenopathy. Supple, full range of motion without nuchal rigidity, or vertebral point tenderness. No Meningismus. Chest/axilla: Normal chest wall appearance and motion. Nontender with no deformity. No lesions are appreciated. Cardiovascular: Regular rate and rhythm with a normal S1 and S2. No gallops, murmurs, or rubs. Normal PMI, no JVD. No pulse deficits. Respiratory: Lungs have equal breath sounds bilaterally, clear to auscultation and percussion. No rales, rhonchi or wheezes noted. No increased work of breathing, no retractions or nasal flaring. Abdomen/GI: Soft, non-tender, with normal bowel sounds. No distension or tympany. No guarding or rebound. No evidence of tenderness throughout. Back: No spinal tenderness. No costovertebral tenderness. Full range of motion. Female : Normal external genitalia. Skin: Warm, dry with normal turgor. Normal color with no rashes, no lesions, and no evidence of cellulitis. MS/ Extremity: Pulses equal, no cyanosis. Neurovascular intact. Full, normal range of motion. Neuro: Awake and alert, GCS 15, oriented to person, place, time, and situation. Cranial nerves II-XII grossly intact. Motor strength 5/5 in all extremities. Sensory grossly intact. Cerebellar exam normal. Normal gait. Psych: Awake, alert, with orientation to person, place and time. Behavior, mood, and affect are within normal limits. Vital Signs: 17:24 BP 236 / 77; Pulse 79; Resp 16; Temp 99.4; Pulse Ox 99% on R/A; Weight 60.33 kg; Height aj 5 ft. 3 in. (160.02 cm); 17:41 BP 182 / 85; Pulse 80; Resp 16; Pulse Ox 100% on R/A; sv 18:10 BP 247 / 86; Pulse 81; Resp 20; Pulse Ox 100% on R/A; tw2 19:18 BP 205 / 74; Pulse 74; Resp 13; Pulse Ox 100% on R/A; Pain 0/10; lp1 19:30 BP 197 / 64; Pulse 72; Resp 20; Pulse Ox 100% on R/A; lp1 19:52 BP 180 / 74; Pulse 77; Resp 14; Pulse Ox 99% on R/A; lp1 20:09 BP 170 / 49; Pulse 83; Resp 20; Pulse Ox 100% on R/A; lp1 21:09 BP 186 / 76; Pulse 80; Resp 22; Temp 98.6(TE); Pulse Ox 100% on R/A; Pain 0/10; ak1 17:24 Body Mass Index 23.56 (60.33 kg, 160.02 cm) aj MDM: 17:26 Patient medically screened. [facility] 17:48 Data reviewed: vital signs, nurses notes, lab test result(s), EKG, radiologic studies, catracho plain films. 12/21 17:45 Order name: Basic Metabolic Panel [facility] 12/21 17:45 Order name: CBC with Diff [facility] 12/21 17:45 Order name: Ckmb [facility] 12/21 17:45 Order name: CPK; Complete Time: 19:11 [facility] 12/21 17:45 Order name: LFT's; Complete Time: 19:11 [facility] 12/21 17:45 Order name: Magnesium; Complete Time: 19:11 [facility] 12/21 17:45 Order name: NT PRO-BNP; Complete Time: 19:11 [facility] 12/21 17:45 Order name: PT-INR; Complete Time: 19:11 [facility] 12/21 17:45 Order name: Ptt, Activated; Complete Time: 19:11 [facility] 12/21 17:45 Order name: Troponin (emerg Dept Use Only); Complete Time: 19:11 [facility] 12/21 17:45 Order name: Urine Culture [facility] 12/21 17:45 Order name: Basic Metabolic Panel; Complete Time: 19:11 [facility] 12/21 17:45 Order name: CBC with Automated Diff; Complete Time: 19:11 [facility] 12/21 17:45 Order name: CKMB Creatine Kinase MB; Complete Time: 19:11 [facility] 12/21 17:45 Order name: XRAY Chest (1 view) [facility] 12/21 17:45 Order name: EKG; Complete Time: 17:46 [facility] 12/21 17:45 Order name: Cardiac monitoring; Complete Time: 18:10 [facility] 12/21 17:45 Order name: EKG - Nurse/Tech; Complete Time: 18:10 [facility] 12/21 17:45 Order name: IV Saline Lock; Complete Time: 18:10 [facility] 12/21 17:45 Order name: Labs collected and sent; Complete Time: 18:10 [facility] 12/21 17:45 Order name: O2 Per Protocol; Complete Time: 18:10 [facility] 12/21 17:49 Order name: TSH [facility] 12/21 17:49 Order name: Thyroid Stimulating Hormone; Complete Time: 19:11 [facility] 12/21 18:27 Order name: Urine Dipstick--Ancillary (enter results) 12/21 19:29 Order name: CONS Physician Consult [facility] 12/21 17:45 Order name: O2 Sat Monitoring; Complete Time: 18:10 catracho 12/21 17:45 Order name: Urine Dipstick-Ancillary (obtain specimen); Complete Time: 18:32 catracho Administered Medications: 18:22 Drug: Norvasc 5 mg Route: PO; sv 19:01 Follow up: Response: No adverse reaction sv 19:16 CANCELLED (Duplicate Order): HydrALAZINE 25 mg PO once catracho 19:40 Drug: hydrALAZINE 10 mg Route: IV; Rate: per protocol; Site: Port-a-cath; lp1 19:54 Follow up: Response: Blood pressure is lowered; IV Status: Completed infusion lp1 19:41 Drug: hydrALAZINE 10 mg Route: PO; lp1 19:54 Follow up: Response: Blood pressure is lowered lp1 19:45 Not Given (Med not available): Quinapril 20 mg PO once lp1 Disposition: 12/21/17 19:16 Hospitalization ordered by Angelica Haile for Observation. Preliminary diagnosis are Weakness, Essential (primary) hypertension. - Bed requested for Telemetry/MedSurg (observation). - Status is Observation. bb - Condition is Fair. - Problem is new. - Symptoms have improved. UTI on Admission? No Signatures: Dispatcher [employer] [facility] Tiana Pillai RN Tia Guardado RN Deepika Mayorga RN Roberto Martin MD MD cha Ballard, Brenda, RN RN bb Pena, Laura RN RN lp1 Corrections: (The following items were deleted from the chart) 19:16 19:13 HydrALAZINE 25 mg PO once ordered. catracho catracho 19:26 19:16 Hospitalization Ordered by Angelica Haile MD for Observation. Preliminary mw diagnosis is Weakness; Essential (primary) hypertension. Bed requested for Telemetry/MedSurg (observation). Status is Observation. Condition is Fair. Problem is new. Symptoms have improved. UTI on Admission? No. catracho 21:31 19:26 12/21/2017 19:16 Hospitalization Ordered by Angelica Haile MD for Observation. bb Preliminary diagnosis is Weakness; Essential (primary) hypertension. Bed requested for Telemetry/MedSurg (observation). Status is Observation. Condition is Fair. Problem is new. Symptoms have improved. UTI on Admission? No. mw
[2017-12-21] MEDS ORDERED: HYDRALAZINE HCL 20 MG/ML VIAL ONE (19:26)
[2017-12-21] MEDS ORDERED: HYDRALAZINE HCL 10 MG TABLET ONE (19:26)
[2017-12-21 19:29] LABS: Urine Blood TRACE (NEG); Urine Glucose NEGATIVE (NEG); Urine Protein NEGATIVE (NEG); Urine pH 7.5 (5.0-7.0)
--- NOTE | 2017-12-21 19:59 | RAD REPORT ---
EXAM DESCRIPTION: RAD - Chest Single View - 12/21/2017 6:13 pm CLINICAL HISTORY: Cough, hypertension COMPARISON: None. TECHNIQUE: AP portable chest image was obtained 1800 hours . FINDINGS: No focal infiltrate, mass or failure. Interstitial markings are prominent, probably baseli ne. Heart and vasculature are normal. No measurable pleural effusion and no pneumothorax. No gross sima [place] abnormality seen. No acute aortic finding. Right-sided Port-A-Cath is in place. IMPRESSION: No focal infiltrate, failure or mass. Prominent interstitial markings probably baseline for the patient.
--- NOTE | 2017-12-21 21:02 | P.HP ---
Certification for Inpatient Patient admitted to: Inpatient With expected LOS: >2 Midnights Practitioner: I am a practitioner with admitting privileges, knowledge of patient current condition, hospital course, and medical plan of care. Services: Services provided to patient in accordance with Admission requirements found in Title 42 Section 412.3 of the Code of Federal Regulations Patient History Date of Service: 12/21/17 Reason for admission: Hypertension Urgency History of Present Illness: Ms Aguilar is an 82 years old woman with history of HTN, Hypothyroidism, colon cancer on ongoing chemotherapy treatment, who was sent by home healt nurse due to HTN, 236/. Her show me a log book, and was noticed that her blood pressure has not been well controlled lately. She is taking Lisinopril 20 mg PO BID, she use to take amlodipine as well but it was discontinued by her pipe organ technician due to lower extremity edema. 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 She denied chest pain or SOB. The patient is in non-distress at my encounter. Allergies Penicillins Allergy (Unverified 06/29/16 20:36) Unknown Home medications list reviewed: Yes - Past Medical/Surgical History -: HTN -: Hypothyroidism -: colon cancer -: colon cancer remove - Family History Family History: Reviewed- Non-Contributory - Social History Smoking Status: Never smoker Alcohol use: No CD- Drugs: No Place of Residence: Home Review of Systems 10-point ROS is otherwise unremarkable Physical Examination - Physical Exam General: Alert, In no apparent distress HEENT: Atraumatic, PERRLA, Mucous membr. moist/pink, EOMI, Sclerae nonicteric Neck: Supple, 2+ carotid pulse no bruit, No LAD, Without JVD or thyroid abnormality Respiratory: Clear to auscultation bilaterally, Normal air movement Cardiovascular: Regular rate/rhythm, Normal S1 S2 Gastrointestinal: Normal bowel sounds, No tenderness Musculoskeletal: No tenderness Integumentary: No rashes Neurological: Normal speech, Normal strength at 5/5 x4 extr, Normal tone, Normal affect Lymphatics: No axilla or inguinal lymphadenopathy - Studies Laboratory Data (last 24 hrs) 12/21/17 18:05: PT 11.7, INR 0.99, APTT 54.4 H 12/21/17 18:05: WBC 6.6, Hgb 10.3 L, Hct 30.7 L, Plt Count 191 12/21/17 18:05: Sodium 143, Potassium 3.6, BUN 21 H, Creatinine 0.70, Glucose 108 H, Magnesium 2.4, Total Bilirubin 0.3, AST 20, ALT 14, Alkaline Phosphatase 63 Assessment and Plan - Problems (Diagnosis) (1) HTN (hypertension) Current Visit: Yes Status: Acute Qualifiers: Hypertension type: essential hypertension Qualified Code(s): I10 - Essential (primary) hypertension (2) Hypertensive urgency Current Visit: Yes Status: Acute (3) Hyperthyroidism Current Visit: Yes Status: Acute (4) Colon cancer Current Visit: Yes Status: Acute Qualifiers: Colon location: unspecified part of colon Qualified Code(s): C18.9 - Malignant neoplasm of colon, unspecified - Plan The patient has improved her BP after received Hydrlazine IV and PO, also amlodipine. Her current BP is 183/76. Will admit the patient to monitor her BP over night, will add metoprolol to her regimen. Consult cardiology team for medication optimization. - Advance Directives Does patient have a Living Will: No Does patient have a Durable POA for Healthcare: No - Code Status/Comfort Care Code Status Assessed: Yes Code Status: Full Code
[2017-12-21] MEDS ORDERED: HYDRALAZINE HCL 20 MG/ML VIAL IV PRN (22:05)
[2017-12-21] MEDS: METOPROLOL TAR 25 MG TAB PO SCH (23:34)
[2017-12-21] MEDS: LISINOPRIL 20 MG TAB PO SCH (23:36)
[2017-12-22] MEDS: METOPROLOL TAR 25 MG TAB PO SCH (06:01)
--- NOTE | 2017-12-22 06:49 | EKG ---
Test Date: 2017-12-21 Test Time: 17:53:03 Counselling Psychologist: PRECIOUS MEASUREMENT RESULTS: Intervals: Rate: 73 RI: 136 QRSD: 82 QT: 408 QTc: 449 [place]: P: 54 RI: 136 QRS: 15 T: 37 INTERPRETIVE STATEMENTS: Normal sinus rhythm Normal ECG Compared to ECG 06/29/2016 16:03:37 Atrial premature complex(es) no longer present ST (T wave) deviation no longer present Electronically Signed On 12-22-17 06:48:23 CDT by Luiz Sylvester
[2017-12-22 08:57] LABS: Ferritin 31.5 ng/mL (8-388)
[2017-12-22] MEDS ORDERED: EZETIMIBE 10 MG TAB PO SCH (09:00)
[2017-12-22] MEDS: LISINOPRIL 20 MG TAB PO SCH (09:36)
--- NOTE | 2017-12-22 11:34 | P.DS ---
Admission Date: 12/21/17 Discharge Date: 12/22/17 Primary Care Provider: Dr. Leal; Cardiology-Dr. Quinn Disposition: ROUTINE DISCHARGE Discharge Condition: GOOD Reason for Admission: Hypertension Urgency Consultations: None - Problems (1) Hypothyroidism Current Visit: Yes Status: Chronic Qualifiers: Hypothyroidism type: unspecified Qualified Code(s): E03.9 - Hypothyroidism , unspecified (2) Neuropathy Current Visit: Yes Status: Chronic (3) Anemia Current Visit: Yes Status: Chronic Qualifiers: Anemia type: iron deficiency Iron deficiency anemia type: unspecified iron deficiency Qualified Code(s): D50.9 - Iron deficiency anemia, unspecified (4) Hyperlipidemia Current Visit: Yes Status: Chronic Qualifiers: Hyperlipidemia type: unspecified Qualified Code(s): E78.5 - Hyperlipidemia , unspecified (5) GERD (gastroesophageal reflux disease) Current Visit: Yes Status: Chronic Qualifiers: Esophagitis presence: esophagitis presence not specified Qualified Code(s) : K21.9 - Gastro-esophageal reflux disease without esophagitis (6) Colon cancer Onset Date: 12/22/17 Current Visit: Yes Status: Chronic Qualifiers: Colon location: unspecified part of colon Qualified Code(s): C18.9 - Malignant neoplasm of colon, unspecified (7) HTN (hypertension) Onset Date: 12/22/17 Current Visit: Yes Status: Chronic Qualifiers: Hypertension type: essential hypertension Qualified Code(s): I10 - Essential (primary) hypertension (8) Hypertensive urgency Onset Date: 12/22/17 Current Visit: Yes Status: Acute Brief History of Present Illness: 82-year-old female presented emergency room after she was sent by her home health nurse due to elevated blood pressure. Patient asymptomatic. Patient evaluated in the emergency room, patient was admitted for treatment Hospital Course: During the course of her stay the patient reported that she had been on 2 types of medications for blood pressure. Norvasc was discontinued. She continued on quinapril. She had noted that her BP remained high without major symptoms. During her hospital stay, her BP remained stable with current mediation. At discharge she will continue with Quinapril 20 mg one pill twice daily and new medication-Metoprolol 25 mg one pill twice daily. Recommendation is to maintain blood pressures less 150/80. Further adjustment can be done by her PCP. Patient has hypothyroidism. She will continue with Levoxyl 75 mcg daily. Patient has hyperlipidemia. She will continue with her medication-Zetia 10 mg daily and Fluvastatin 80 mg daily. Patient has neuropathy. Recommendation is for the patient to follow up with her PCP to further assess. Patient may benefit with medication like Lyrica or gabapentin. This can be further addressed by her PCP. I will recommend that she see Neurology as an outpatient to consider further evaluation and treatment. Patient has anemia. Iron deficiency noted. She will continue with iron supplementation 325 mg daily. Recommendation is to recheck CBC in 1-2 weeks to monitor progress. Patient with history of colon cancer. She is to have another colonoscopy within the next couple of months. Patient may require EGD. Patient has GERD. She will continue with medication-Protonix 20 mg daily. Patient may require EGD in the future. Vital Signs/Physical Exam: Temp Pulse Resp BP Pulse Ox 98.1 F 71 18 138/65 96 12/22/17 08:00 12/22/17 09:36 12/22/17 08:00 12/22/17 09:36 12/22/17 08:00 General: Alert, In no apparent distress, Oriented x3, Cooperative HEENT: Atraumatic Neck: Supple Respiratory: Clear to auscultation bilaterally, Normal air movement Cardiovascular: Normal pulses, Regular rate/rhythm Gastrointestinal: Normal bowel sounds, Soft and benign, Non-distended, No tenderness, No masses, No rebound, No guarding Musculoskeletal: No erythema, No tenderness, No warmth Integumentary: No erythema, No warmth, No cyanosis Neurological: Normal speech, Normal strength at 5/5 x4 extr, Normal tone, Normal affect Laboratory Data at Discharge: WBC 6.6 K/uL (4.3-10.9) 12/21/17 18:05 Hgb 10.3 g/dL (12.0-15.0) L 12/21/17 18:05 Hct 30.7 % (36.0-45.0) L 12/21/17 18:05 Plt Count 191 K/uL (152-406) 12/21/17 18:05 PT 11.7 SECONDS (9.5-12.5) 12/21/17 18:05 INR 0.99 12/21/17 18:05 APTT 54.4 SECONDS (24.3-36.9) H 07/24/18 18:05 Sodium 143 mmol/L (136-145) 12/21/17 18:05 Potassium 3.6 mmol/L (3.5-5.1) 12/21/17 18:05 BUN 21 mg/dL (7-18) H 12/21/17 18:05 Creatinine 0.70 mg/dL (0.55-1.3) 12/21/17 18:05 Glucose 108 mg/dL (74-106) H 12/21/17 18:05 Magnesium 2.4 mg/dL (1.8-2.4) 12/21/17 18:05 Total Bilirubin 0.3 mg/dL (0.2-1.0) 12/21/17 18:05 AST 20 U/L (15-37) 12/21/17 18:05 ALT 14 U/L (12-78) 12/21/17 18:05 Alkaline Phosphatase 63 U/L (45-117) 12/21/17 18:05 Home Medications: Alprazolam [Xanax] 0.5 mg PO PRN PRN 12/21/17 Antiox#10/Om3/Dha/Epa/Lut/Zeax [I-Caps with Lutein-[place] 3 Sfg] 1 each PO DAILY 12/21/17 Aspirin 81 mg PO BEDTIME 12/21/17 Balsalazide Disodium 750 mg PO TID 12/21/17 Cholecalciferol (Vitamin D3) [Vitamin D3] 1,000 unit PO DAILY 12/21/17 Ezetimibe [Zetia] 10 mg PO DAILY 12/21/17 Fluvastatin Sodium [Fluvastatin ER] 80 mg PO DAILY 12/21/17 Levothyroxine [Synthroid*] 75 mcg PO [id number] 12/21/17 Meclizine HCl 25 mg PO PRN PRN 12/21/17 Pantoprazole Sodium [Protonix] 20 mg PO DAILY 12/21/17 Pyridoxine HCl [Vitamin B-6] 25 mg PO QID 12/21/17 Quinapril HCl [Accupril] 20 mg PO BID 12/21/17 Ferrous Sulfate [Iron] 325 mg PO DAILY #30 tablet 12/22/17 Metoprolol Tartrate [Lopressor*] 25 mg PO BID 6AM 6PM #60 tab 12/22/17 New Medications: Ferrous Sulfate [Iron] 325 mg PO DAILY #30 tablet Metoprolol Tartrate [Lopressor*] 25 mg PO BID 6AM 6PM #60 tab Patient Discharge Instructions: 1. Patient will need to follow up with her PCP in 1 week to follow up this hospitalization. 2. Patient presented with elevated blood pressure. Medications adjusted during her stay. During her hospital stay, her BP remained stable with current mediation. At discharge she will continue with Quinapril 20 mg one pill twice daily and new medication- Metoprolol 25 mg one pill twice daily. Recommendation is to maintain blood pressures less 150/80. Further adjustment can be done by her PCP. 3. Patient has hypothyroidism. She will continue with Levoxyl 75 mcg daily. 4. Patient has hyperlipidemia. She will continue with her medication-Zetia 10 mg daily and Fluvastatin 80 mg daily. 5. Patient has neuropathy. This is chronic. Recommendation is for the patient to follow up with her PCP to further assess. She may require medication like Gabapentin in the future. I will recommend that she see Neurology as an outpatient to consider further evaluation and treatment. 6. Patient has anemia. Iron deficiency noted. She will continue with iron supplementation 325 mg daily. Recommendation is to recheck CBC in 1- 2 weeks to monitor progress. Patient with history of colon cancer. She is to have another colonoscopy within the next couple of months. Patient may require EGD. 7. Patient has GERD. She will continue with medication-Protonix 20 mg daily. Diet: AHA Activity: Fall precautions Time spent managing pt's care (in minutes): 55
[2017-12-22] MEDS ORDERED: HEPARIN 500 UNIT/5 ML SYR IV PRN (12:04)
--- NOTE | 2017-12-22 14:39 | ECHO ---
HEIGHT: 5 ft 3 in WEIGHT: 122 lb 3 oz DATE OF STUDY: 12/22/[address]: Charlie Johnson DO 2-DIMENSIONAL: YES M.MODE: YES DOPPLER: YES COLOR FLOW: YES TDS: PORTABLE: DEFINITY: BUBBLE STUDY: DIAGNOSIS: HYPERTENSION CARDIAC HISTORY: CATHERIZATION: NO SURGERY: NO PROSTHETIC VALVE: NO PACEMAKER: NO MEASUREMENTS (cm) DIASTOLIC (NORMALS) SYSTOLIC (NORMALS) IVSd 0.8 (0.6-1.2) LA Diam 3.5 (1.9-4.0) LVEF 63% LVIDd 3.7 (3.5-5.7) LVIDs 2.5 (2.0-3.5) %FS 34% LVPWd 1.0 (0.6-1.2) Ao Diam 2.7 (2.0-3.7) 2 DIMENSIONAL ASSESSMENT: RIGHT ATRIUM: NORMAL LEFT ATRIUM: NORMAL RIGHT VENTRICLE: NORMAL LEFT VENTRICLE: NORMAL TRICUSPID VALVE: NORMAL MITRAL VALVE: MITRAL ANNULAR CALCIFICATION PULMONIC VALVE: NORMAL AORTIC VALVE: MILD SCLEROSIS PERICARDIAL EFFUSION: NONE AORTIC ROOT: NORMAL LEFT VENTRICULAR WALL MOTION: NORMAL DOPPLER/COLOR FLOW: NO AORTIC STENOSIS OR AORTIC REGURGITATION. MILD TRICUSPID REGURGITATION. NORMAL RIGHT VENTRICULAR SYSTOLIC PRESSURE. COMMENTS: NORMAL LEFT VENTRICULAR EJECTION FRACTION. MITRAL ANNULAR CALCIFICATION. NO SCLEROSIS WITH NO AORTIC STENOSIS OR AORTIC REGURGITATION. MILD TRICUSPID REGURGITATION. TECHNOLOGIST: JOSE CARLOS WALTERS
[2017-12-22] MEDS ORDERED: ASPIRIN 81 MG CHEWABLE TABLET PO SCH (21:00)
[2017-12-23] MEDS ORDERED: LEVOTHYROXINE SOD 0.075 MG TAB PO SCH (06:00)
[2017-12-23] MEDS ORDERED: PANTOPRAZOLE 40MG TABLET PO SCH (06:30)
== END 2017-12-22 16:07 | disposition home or self-care (01) ==
LOC: ER 17:15 → INTOOBSV 19:23 → ERHOLD 19:23 → 4TH 20:59
PROVIDERS: ADMIT Internal Medicine; ATTEND Internal Medicine
DX: I16.0 Hypertensive urgency (principal); E03.9 Hypothyroidism, unspecified; E78.5 Hyperlipidemia, unspecified; K21.9 Gastro-esophageal reflux disease without esophagitis; G62.9 Polyneuropathy, unspecified; D50.9 Iron deficiency anemia, unspecified; Z85.038 Personal history of other malignant neoplasm of large intestine
CPT/HCPCS: 36415; 71045; 80048; 80076; 81003; 82550; 82553; 82607; 82728; 83540; 83735; 83880; 84443; 84466; 84484; 85025; 85610; 85730; 87086; 87088; 93005; 93306; 96374; 99285; G0378; J0360; J1642

== ENCOUNTER 2020-05-10 10:37 | Emergency (ER) | payer OTHER ==
--- OUTSIDE RECORDS SUMMARY | 2020-05-10 10:40 | XMS REPORT | Clinical Summary ---
:1935 Author Organization [facility] Address [address] [place] [address] Care Team Providers Name Role Phone Kvng Leal MD Primary Care Provider [phone] Allergies Active Allergy Reactions Severity Noted Date Comments Dye 11/26/[address] dye allergy Penicillins 11/26/2015 Medications Medication Sig Dispensed Refills Start End Status Date Date ALPRAZolam (XANAX) TAKE 1 TABLET BY 0 Active 0.5 MG tablet MOUTH TWICE A DAY NEEDED FOR ANXIETY fluvastatin XL fluvastatin ER 0 Active (LESCOL XL) 80 mg 24 80 mg hr tablet tablet,extended release 24 hr aspirin (ECOTRIN) 81 Take 1 tablet(s) 0 Active MG enteric coated every day by tablet oral route. levothyroxine levothyroxine 75 0 Active (SYNTHROID, mcg tablet LEVOTHROID) 75 MCG tablet cholecalciferol, Take 1,000 Units 0 Active vitamin D3, (VITAMIN by mouth daily. D3) 1,000 unit tablet multivitamin with Take 1 tablet by 0 Active minerals tablet mouth 2 (two) times a day. meclizine (ANTIVERT) Take 25 mg by 0 Active 25 mg tablet mouth 3 (three) times a day as needed for dizziness. balsalazide (COLAZAL) Take 2,250 mg by 0 Active 750 mg capsule mouth 3 (three) times a day. pyridoxine, vitamin Take 100 mg by 0 Active B6, (B-6) 100 MG mouth 3 (three) tablet times a day. amLODIPine (NORVASC) TAKE 1 TABLET BY 90 tablet 0 06/23/19 Active 10 mg tablet MOUTH NEEDED 19 IF BLOOD PRESSURE IS GREATER THAN 180 quinapril (ACCUPRIL) Take 1 tablet 180 tablet 3 06/27/19 Active 20 MG (20 mg total) by 20 tabletIndications: mouth 2 (two) Essential times a day. hypertension metoprolol tartrate Take 1 tablet 180 tablet 3 06/27/1906/26 / Active (LOPRESSOR) 50 mg (50 mg total) by 2020 tabletIndications: mouth 2 (two) Essential times a day. hypertension pantoprazole Take 1 tablet 90 tablet 3 08/18/19 Act karthik (PROTONIX) 20 MG EC (20 mg total) by 20 tablet mouth daily. ezetimibe (ZETIA) 10 TAKE 1 TABLET BY 90 tablet 3 04/24/20 Active mg tabletIndications: MOUTH EVERY DAY Hypercholesteremia Ca carb-D3-mag Take 300 mg by 0 06/27/ Discontinued [id number] mouth 2 (two) 2019 ( Therapy (CALTRATE + D3 PLUS times a day. completed) MINERALS) 300 mg-800 unit -25 mg-0.5 mg tablet coenzyme Q10 100 mg Take 200 mg by 0 05/10 / Discontinued capsule mouth 2 (two) 2019 times a day. moklw-3b-xvd-epa-fish Take 1,200 mg by 0 1 07/11/ Discontinued oil (FISH OIL) mouth 2 (two) 2018 720-1,200 mg capsule times a day. DULoxetine (CYMBALTA) Take by mouth 0 03/28/2004/30 1/ Discontinued 30 MG capsule daily. 2018 gabapentin Take 2 capsules 180 capsule 3 05/25/2005/10/ D iscontinued (NEURONTIN) 100 mg (200 mg total) 2018 (Dose capsule by mouth 3 adjustmen t) (three) times a day. metoprolol tartrate Take 1 tablet 180 tablet 3 06/28/1906/27 / Discontinued (LOPRESSOR) 50 mg (50 mg total) by 2019 (Reorder) tabletIndications: mouth 2 (two) Essential times a day. hypertension quinapril (ACCUPRIL) Take 1 tablet 180 tablet 3 06/28/1906/01 8/ Discontinued 20 MG (20 mg total) by 2019 tabletIndications: mouth 2 (two) Essential times a day. hypertension ezetimibe (ZETIA) 10 TAKE 1 TABLET BY 90 tablet 3 07/08/19/ Discontinued mg tabletIndications: MOUTH EVERY DAY (Reorder) Hypercholesteremia pantoprazole TAKE 1 TABLET BY 90 tablet 1 11/15/1905/10/ Discontinued (PROTONIX) 20 MG EC MOUTH EVERY DAY 2018 (Reorder) tablet gabapentin Take 1 capsule 180 capsule 1 05/10/20 Di scontinued (NEURONTIN) 300 mg (300 mg total) 2019 (Therapy capsule by mouth 2 (two) com pleted) times a day. pantoprazole Take 1 tablet 90 tablet 3 05/10/20 Dis continued (PROTONIX) 20 MG EC (20 mg total) by 0 (Reorder) tablet mouth daily. ezetimibe (ZETIA) 10 Take 1 tablet 90 tablet 3 06/27/1904/24 / Discontinued mg tabletIndications: (10 mg total) by 2 020 Hypercholesteremia mouth daily. 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 Hypercholesteremia 11/26/2015 Hypertension 11/26/2015 Hypothyroidism 11/26/2015 Encounters Date Type Specialty Care Team Description 04/23/2020 Refill Cardiology Edouard Quinn, Med Refill 08/18/2019 Refill Rheumatology [facility] [place] 06/27/2019 Office Visit Cardiology Edouard Quinn, Nonrheumati c aortic valve stenosis (Primary Dx); Essential hyper tension; Bilateral carot id bruits; Hypercholestere maggie 05/10/2019 Office Visit Rheumatology Amy Mccracken MD Ankylosin g spondylitis of multiple sites in spine (HCC) (Primary Dx); Neuropathy due to chemotherapeutic drug (HCC) after 05/10/2019 Surgical History Surgery Date Site/Laterality Comments COLON SURGERY 03/29/2017 EYE SURGERY 07/20-08/[address] Rodriguez Medical History Medical History Date Comments Statin myopathy Colon cancer (HCC) chmo theraph finish on 09/2017 Colitis Family History Relation Name Status Comments Father Mother Social History Tobacco Use Types Packs/Day Years Used Date Never Smoker Smokeless Tobacco: Never Used Alcohol Use Drinks/Week oz/Week Comments No Sex Assigned at Date Recorded Not on file Last Filed Vital Signs Vital Sign Reading Time Taken Comments Blood Pressure 182/75 06/27/2019 10:51 AM [employer] ADMIN Pulse 63 06/27/2019 10:51 AM [employer] Temperature - - Respiratory Rate - - Oxygen Saturation - - Inhaled Oxygen Concentration - - Weight 67.1 kg (148 lb) 06/27/2019 10:51 AM [employer] ADMIN Height 157.5 cm (5' 2") 06/27/2019 10:51 AM [employer]MIN Body Mass Index 27.07 06/27/2019 10:51 AM [employer] ADMIN Plan of Treatment Date Type Specialty Care Team Description 06/17/2020 Appointment Procedural Cardiology 06/25/2020 Office Visit Cardiology Edouard Quinn MD [address] [facility] [address] [place], [place] [address] [phone] 07/10/2020 [place] [address] [address] [place] [address] [address] Health Maintenance Due Date Last Done Comments SHINGLES VACCINES (#1) 1985 65+ PNEUMOCOCCAL VACCINE (1 of 1 - PPSV23) 2000 INFLUENZA VACCINE 12/30/2019 Results Not on fileafter 05/10/2019 Advance Directives For more information, please contact: [phone] Type Date Recorded 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
--- OUTSIDE RECORDS SUMMARY | 2020-05-10 10:42 | XMS REPORT | Continuity of Care Document ---
:1935 Author Organization [employer] Care Team Providers Name Role Phone [employer] Unavailable Un available Problems Problem Status Onset Classification Date Comments Sourc e Date Reported Malignant neoplasm 05/25/20 12/06/2018 OPID of hepatic flexure 18 [place] Encounter for 04/14/20 10/26/2018 Griffin gar adjustment and 18 Land management of vascular access device C18.3 - MALIGNANT Active 10/30/19 OPID NEOPLASM OF 18 Sugar HEPATIC [place], OPID [place] Malignant neoplasm 10/26/2018 Sugar of cecum [place] Personal history 10/26/2018 Sugar of antineoplastic [place] chemotherapy 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/26/2018 Sugar (chronic) Land pancolitis without complications First degree 10/26/2018 Sug ar hemorrhoids Land Other retirement 10/26/2018 Sugar (current) drug [place] therapy Anxiety disorder, 10/26/2018 M H [place] unspecified [place] Major depressive 10/26/2018 Sugar disorder, single [place] episode, unspecified Polyneuropathy, 10/26/2018 Sugar unspecified [place] Family history of 10/26/2018 M H Sugar malignant neoplasm L and of digestive organs Family history of 10/26/2018 M H Sugar stroke [place] Family history of 10/26/2018 M H Sugar asthma and other [place] chronic lower respiratory diseases Family history of 10/26/2018 M H Sugar malignant neoplasm L and of bladder Family history of 10/26/2018 M H Sugar diabetes mellitus [place] Allergy status to 10/26/2018 M H Sugar penicillin [place] Essential Active Problem 11/25/2017 Data Medica l hypertension migrated Group,M [facility]disorder[facility] [place], on 10/27[facility]14. H Frazer, EDDC Hyperlipidemia Active Problem 12/06/2018 Data Betty edical (disorder) migrated Group,[facility]. H Frazer, EDDC Hypothyroidism Active Problem 12/06/2018 M edical (disorder) Group, OPID [place],M H Frazer, EDDC Malignant tumor of Active Problem 11/25/2017 Medical colon (disorder) Isaías up, OPID [place],M H Frazer, EDDC Rheumatoid Active Problem 12/06/2018 Data Medic al arthritis migrated Group,MH (disorder) [facility] [place], on 10/[facility]14. H Frazer, EDDC Ulcerative colitis Active Problem 12/06/2018 Data Medical (disorder) migrated Group,MH from GE OPID [facility] [place], M on 10/27/14. H Frazer, EDDC Increased Active Problem 09/17/2017 OPID frequency of [place],M urination H Sugar (finding) Land, EDDC Mass of body Active Problem 09/17/2017 of abdomen OP ID structure [place],M (finding) H Frazer, EDDC Anxiety (finding) Active Problem 12/06/2018 M Medical Group, OPID [place],M H Frazer, EDDC Hypertensive Active Problem 12/06/2018 Med ical disorder, systemic G roup, arterial OPID (disorder) [place], M H Frazer, EDDC Other nonspecific 12/06/2018 H OPID abnormal finding [place] of lung field Leiomyoma of 12/06/2018 OPI D uterus, [place] unspecified Atherosclerosis of 12/06/2018 OPID aorta [place] 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 Atelectasis 12/06/2018 OPID [place] Liver disease, 12/06/2018 O PID unspecified [place] Diverticulosis of 12/06/2018 M H OPID large intestine [place],M without H Sugar perforation or Land abscess without bleeding Localized enlarged 12/06/2018 OPID lymph nodes [place] Acquired absence 12/06/2018 OPID of other specified [place],M parts of digestive H Sugar tract Land Essential 12/06/2018 OPID (primary) [place],M hypertension H Frazer Hyperlipidemia, 12/06/2018 OPID unspecified [place] ,M H Frazer Hypothyroidism, 12/06/2018 OPID unspecified [place] ,M H Frazer Rheumatoid 12/06/2018 OPID arthritis, [place], Betty unspecified H Frazer Iron deficiency 12/06/2018 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) History of Active Problem 12/06/2018 Medic al malignant neoplasm G gopal, of colon OPID (situation) [place] ,Betty H Frazer Medications Medication Details Route Status Patient Ordering Order Source Instructions Provider Date balsalazide 750 = 3 cap, PO, Active mg oral capsule TID, # 810 cap, 2019 Medical 1 Refill(s), Group Pharmacy: [facility]/pharmacy #[id number] 0.4 ML adalimumab 40 mg, SUB-Q, Active 100 MG/ML Pen Q14D, # 2 2019 Medical Injector [Humira] pen(s), 5 Grou p Refill(s), Pharmacy: [facility]/pharmacy #[id number] quinapril 20 mg 20 mg = 1 tab, Active 11/01/ M H oral tablet PO, Daily, # 30 2018 Medi kiko tab, 0 Refill(s) Group Humira 40 mg, SUB-Q, No Longer ONCE, 0 Active 2019 Medical Refill(s) Group balsalazide 750 = 3 cap, PO, No Longer 05/03/ M H mg oral capsule TID, # 810 cap, Active 2017 Medical 1 Refill(s), Group Pharmacy: [facility]/pharmacy #[id number] Labetalol 5 mg, 1 mL, Inactive Sugar Route: IVP, Drug 2017 [place] form: INJ, ONCE, Dosing Weight 58.636, kg, PRN Hypertension, Start date: 04/08/18 11:18:00 HYDROELECTRIC MACHINERY MECHANIC HELPER Labetalol 5 mg, Route: Inactive Sugar IVP, Drug form: 2017 Land INJ, ONCE, Dosing Weight 58.636, kg, Start date: 04/08/18 10:59:00 HYDROELECTRIC MACHINERY MECHANIC HELPER, Stop date: 04/08/18 10:59:00 HYDROELECTRIC MACHINERY MECHANIC HELPER Metoprolol 5 mg, Route: Inactive Suga r IVP, Drug form: 2017 Land INJ, ONCE, Dosing Weight 58.636, kg, Start date: 04/08/18 10:23:00 HYDROELECTRIC MACHINERY MECHANIC HELPER, Stop date: 04/08/18 10:23:00 HYDROELECTRIC MACHINERY MECHANIC HELPER Acetazolamide Notes: (Same as: Inactive Sugar Diamox) 2017 [facility] Ondansetron Notes: (Same as: Inactive Sugar Zofran) 2018 [facility] MEDICATION WASTE Product Size: 4 mg Product Wasted: ___ mg Oxycodone Notes: (Same as: Inactive S ugar Roxicodone) 2017 [facility] Naloxone Notes: Same as Inactive S[place] r Narcan 2017 [facility] Hydromorphone Notes: Same as: Inactive H Sugar Dilaudid 2018 [facility] Flumazenil Notes: (Same as: Inactive Sugar Romazicon) 2017 [facility] ondansetron Route: IV, Drug Inactive Sugar (ANES) form: INJ, ONCE, 2017 Land Stop date: 04/08/18 9:47:00 HYDROELECTRIC MACHINERY MECHANIC HELPER ceFAZolin (ANES) Route: IV, Drug Inactive Sugar form: INJ, ONCE, 2017 Stop date: 04/08/18 9:40:00 HYDROELECTRIC MACHINERY MECHANIC HELPER dexamethasone Route: IV, Drug Inactive H Sugar (ANES) form: INJ, ONCE, 2017 Stop date: 04/08/18 9:20:00 HYDROELECTRIC MACHINERY MECHANIC HELPER ePHEDrine (ANES) Route: IV, Drug Inactive Sugar form: INJ, ONCE, 2017 Land Stop date: 04/08/18 9:05:00 HYDROELECTRIC MACHINERY MECHANIC HELPER lidocaine (ANES) Route: IV, Drug Inactive Sugar form: INJ, ONCE, 2017 Stop date: 04/08/18 9:00:00 HYDROELECTRIC MACHINERY MECHANIC HELPER fentaNYL (ANES) Route: IV, Drug Inactive Sugar form: INJ, ONCE, 2017 Land Stop date: 04/08/18 9:00:00 HYDROELECTRIC MACHINERY MECHANIC HELPER propofol (ANES) Route: IV, Drug Inactive Sugar form: INJ, ONCE, 2017 Land Stop date: 04/08/18 9:00:00 HYDROELECTRIC MACHINERY MECHANIC HELPER Lactated Ringers Route: IV, Total Inactive 04/08 Sugar Injection IV Volume: 1,000, 2017 Land (ANES) 1000 mL Start date: 04/08/18 8:15:00 HYDROELECTRIC MACHINERY MECHANIC HELPER, Stop date: 04/08/18 9:15:00 HYDROELECTRIC MACHINERY MECHANIC HELPER Famotidine Notes: (Same as: Inactive Sugar Pepcid) 2017 [place] Lidocaine Notes: Inactive Sugar Hydrochloride 10 Preservative [address] [place] MG/ML Injectable free. (Same as: Solution Xylocaine MPF) Hydralazine Notes: (Same as: Inactive Sugar Apresoline) September 2017 Land interfere w/enteral feedings. Take With Food Celebrex Notes: NSAID. Inactive Sugar Please check 2018 Land indication. Not for seizure. (Same As: CeleBREX) Tylenol Notes: Do not Inactive Sugar exceed 4 gm/day. 2018 Land (Same as: Tylenol) Calcium Chloride 1,000 mL, Rate: Inactive Sugar 0.0014 MEQ/ML / 25 ml/hr, Infuse 2017 Potassium over: 40 hr, Chloride 0.004 Route: IV, MEQ/ML / Sodium Dosing Weight Chloride 0.103 58.636 kg, Total MEQ/ML / Sodium Volume: 1,000, Lactate 0.028 Start date: MEQ/ML Injectable 04/08/18 6:22:00 Solution HYDROELECTRIC MACHINERY MECHANIC HELPER, Duration: 30 day, Stop date: 05/08/18 6:21:00 HYDROELECTRIC MACHINERY MECHANIC HELPER, 1.63, m2 Lactated Ringers 1,000 mL, Rate: Inactive Sugar Injection IV 125 ml/hr, 2018 Land 1,000 mL Infuse over: 8 hr, Route: IV, Dosing Weight 58.636 kg, Total Volume: 1,000, Start date: 04/08/18 5:00:00 HYDROELECTRIC MACHINERY MECHANIC HELPER, Duration: 30 day, Stop date: 05/08/18 4:59:00 HYDROELECTRIC MACHINERY MECHANIC HELPER, 1.63, m2 gabapentin 100 MG 100 mg = 1 cap, Active Sugar Oral Capsule PO, TID, 0 2017 Land Refill(s) metoprolol BID, 0 Refill(s) Active S ugar tartrate 2017 DULoxetine 20 mg 20 mg = 1 cap, Active Sugar oral delayed PO, Daily, 0 2017 Land release capsule Refill(s) Citric Acid 80 See No Longer MG/ML / Magnesium Instructions, 1 Active 2018 Medical Oxide 23.3 MG/ML pkt PO at 6pm G roup / picosulfate and at 2am, # 1 sodium 0.0667 box, 0 MG/ML Oral Refill(s), Solution Pharmacy: [Prepopik] [facility]/pharmacy #[id number] polyethylene See No Longer glycol 3350 with Instructions, as Active 2018 Medical electrolytes oral directed, # Gr oup powder for 4,000 mL, 0 solution Refill(s), Pharmacy: [facility]/pharmacy #[id number], this is the generic of Golytely being used as a bowel prep, not Miralax balsalazide 750 2,250 mg = 3 Active mg oral capsule cap, PO, TID, # 2018 Medical 270 cap, 5 Group Refill(s), Pharmacy: [facility]/pharmacy #[id number] Hydralazine 10 mg, Route: Inactive Griffin gar IV, ONCE, Dosing 2016 [facility] Weight 68.182, kg, Start date: 05/03/17 15:17:00 HYDROELECTRIC MACHINERY MECHANIC HELPER, Stop date: 05/03/17 15:17:00 HYDROELECTRIC MACHINERY MECHANIC HELPER ondansetron Route: IV, Drug Inactive Sugar (ANES) form: INJ, ONCE, 2016 [facility] Stop date: 05/03/17 14:10:00 HYDROELECTRIC MACHINERY MECHANIC HELPER Ondansetron Notes: (Same as: Inactive Sugar Zofran) 2016 [facility] MEDICATION WASTE Product Size: 4 mg Product Wasted: ___ mg Hydromorphone Notes: Same as Inactive Sugar Dilaudid 2016 [facility] Oxycodone Notes: (Same as: Inactive S ugar Roxicodone) [address] [place] [address] Flumazenil Notes: (Same as: Inactive Sugar Romazicon) 2016 [facility] Fentanyl Notes: (Same as: Inactive [place] gar Sublimaze) 2016 [facility] Preservative free. Naloxone Notes: Same as Inactive Suga r Narcan 2016 [facility] fentaNYL (ANES) Route: IV, Drug Inactive Sugar form: INJ, ONCE, 2016 [facility] Stop date: 05/03/17 13:21:00 HYDROELECTRIC MACHINERY MECHANIC HELPER propofol (ANES) Route: IV, Drug Inactive Sugar form: INJ, ONCE, 2016 [facility] Stop date: 05/03/17 13:21:00 HYDROELECTRIC MACHINERY MECHANIC HELPER lidocaine (ANES) Route: IV, Drug Inactive Sugar form: INJ, ONCE, 2016 Stop date: 05/03/17 13:21:00 HYDROELECTRIC MACHINERY MECHANIC HELPER vancomycin (ANES) Route: IV, Drug Inactive 05/03 Sugar 1000 mg form: INJ, Start 2016 [place] date: 05/03/17 12:38:00 HYDROELECTRIC MACHINERY MECHANIC HELPER, Stop date: 05/03/17 13:38:00 HYDROELECTRIC MACHINERY MECHANIC HELPER Lactated Ringers Route: IV, Total Inactive 05/03 Sugar Injection IV Volume: 500, 2016 (ANES) 500 mL Start date: 05/03/17 12:20:00 HYDROELECTRIC MACHINERY MECHANIC HELPER, Stop date: 05/03/17 13:20:00 HYDROELECTRIC MACHINERY MECHANIC HELPER Lactated Ringers 500 mL, Rate: 25 No Longer / MH Sugar IV 500 mL ml/hr, Infuse Active 2016 [place] over: 20 hr, Route: IV, Dosing Weight 68.182 kg, Total Volume: 500, Start date: 05/03/17 12:08:00 HYDROELECTRIC MACHINERY MECHANIC HELPER, Duration: 30 day, Stop date: 06/02/17 12:07:00 HYDROELECTRIC MACHINERY MECHANIC HELPER, 1.74, m2 Ancef 2 gm, Route: IV, Inactive Sug ar PRE OP, Dosing 2016 [place] Weight 68.182, kg, Priority: NOW, Start date: 05/03/17 12:05:00 HYDROELECTRIC MACHINERY MECHANIC HELPER, Duration: 30 day, Stop date: 06/02/17 12:04:00 HYDROELECTRIC MACHINERY MECHANIC HELPER, ABX Indication: Surgical Prophylaxis Lidocaine Notes: No Longer [place] Hydrochloride 10 Preservative Active 2016 [place] MG/ML Injectable free. (Same as: Solution Xylocaine MPF) Calcium Chloride 1,000 mL, Rate: No Longer 05/03 Sugar 0.0014 MEQ/ML / 25 ml/hr, Infuse Active 2016 Potassium over: 40 hr, Chloride 0.004 Route: IV, MEQ/ML / Sodium Dosing Weight Chloride 0.103 68.636 kg, Total MEQ/ML / Sodium Volume: 1,000, Lactate 0.028 Start date: MEQ/ML Injectable 05/03/17 Solution 11:05:00 HYDROELECTRIC MACHINERY MECHANIC HELPER, Duration: 30 day, Stop date: 06/02/17 11:04:00 HYDROELECTRIC MACHINERY MECHANIC HELPER, 1.74, m2 Protonix Notes: Tablet Inactive Sugar should not be 2016 chewed or crushed. (Same as: Protonix) hydrochlorothiazi 2 tab, Route: No Longer Sugar de-quinapril 12.5 PO, Drug Form: Active 2016 [place] mg-10 mg oral TAB, Dosing tablet Weight 69.091, kg, Daily, Start date: 03/30/17 9:00:00 CDT, Duration: 30 day, Stop date: 04/28/17 9:00:00 HYDROELECTRIC MACHINERY MECHANIC HELPER Lescol XL 80 mg, Route: No Longer Sug ar PO, Drug form: Active 2016 Land ERTAB, Daily, Dosing Weight 69.091, kg, Start date: 03/30/17 9:00:00 CDT, Duration: 30 day, Stop date: 04/28/17 9:00:00 HYDROELECTRIC MACHINERY MECHANIC HELPER Zetia Notes: (Same as: No Longer Griffin gar Zetia) Active 2016 [place] amLODIPine Notes: (Same as: No Longer Sugar Norvasc) Active 2016 [place] Protonix Notes: For IV Inactive Sugar push 2016 [place] reconstitute with 10 ml 0.9% sodium chloride and push over 2 minutes. (Same as: Protonix) enoxaparin Notes: (Same as: Inactive Sugar Lovenox) 2016 Quinapril-HCTZ Quinapril-HCTZ No Longer Sugar 20-12.5 mg tablet 20-12.5 mg Active 2016 [place] tablet, 1 tablet, Drug form: MISC, Route: PO, Daily, 03/30/17 9:00:00 CDT, Duration: 30 day, Stop date: 04/28/17 9:00:00 HYDROELECTRIC MACHINERY MECHANIC HELPER hydrALAZINE Notes: (Same as: No Longer H Sugar Apresoline) Push Active 2016 [place] over 5 minutes levothyroxine Notes: Take 1 No Longer Sugar hour before or 2 Active 2016 [place] hours after meal; Enteral feeds may interefere with the absorption of this medication.(Same as:Levothroid, Synthroid) acetaminophen Notes: Max No Longer Griffin gar acetaminophen Active 2016 [place] 4000 mg/day (4 gm/day). (Same as: Tylenol Extra Strength) Lescol Xl 80 mg Lescol Xl 80 mg No Longer Sugar (Fluvastatin ER (Fluvastatin ER Active 2016 [place] 80 mg) 80 mg), 1 tablet, Drug form: MISC, Route: PO, Bedtime, 03/29/17 21:00:00 CDT, Duration: 30 day, Stop date: 04/27/17 21:00:00 HYDROELECTRIC MACHINERY MECHANIC HELPER Entereg Notes: Same as: No Longer Sug ar Entereg Active 2016 [facility] Maximum of 15 doses Alert Restricted medication Alvimopan (Entergen) order form must be completed prior to dispensing. [facility] Notes: Infuse No Longer Sugar over 15 minutes Active 2016 Land Do not exceed 4gm/day of acetaminophen MEDICATION WASTE Product Size: 1000 mg Product Wasted: ___ mg acetaminophen Notes: Infuse Inactive Sugar over 15 minutes 2016 Land Do not exceed 4gm/day of acetaminophen MEDICATION WASTE Product Size: 1000 mg Product Wasted: ___ mg nalbuphine Notes: (Same As: No Longer Sugar Nubain) Active 2016 [facility] diphenhydrAMINE Notes: (Same as: No Longer 03/29 Sugar Benadryl) Active 2016 [facility] ondansetron 4 mg, Route: Inactive Sug ar IVP, Q8H, Dosing 2016 [place] Weight 68.182, kg, PRN Nausea & Vomiting, Start date: 03/29/17 16:02:00 CDT, Duration: 30 day, Stop date: 04/28/17 16:01:00 HYDROELECTRIC MACHINERY MECHANIC HELPER morphine Sulfate Notes: (Same No Longer Sugar as:MORPhine Active 2016 [facility] Sulfate) gabapentin 100 mg Notes: (Same as: No Longer Sugar oral capsule Neurontin) Active 2016 Land metroNIDAZOLE Notes: (Same as: No Longer Sugar (SCIP) Flagyl) Avoid Active 2016 Land alcohol. vancomycin (SCIP) 2001 mg: infuse No Longer Sugar + sodium chloride over 2.5 hours Active 2016 [place] 0.9% INJ 250 mL MEDICATION WASTE Product Size: 1000 mg Product Wasted: ___ mg methocarbamol Notes: (Same No Longer Sugar as:Robaxin) Active 2016 [place] D5W 1/2NS + KCL Notes: PREMIX No Longer Sugar 20mEq/L 1000ml IV - Do Not Active 2016 [facility] (Premix) 1,000 mL Alter WASTE: F/P - Sink; E - Municipal Trash Bin Saline Flush 0.9% Notes: (Same as: No Longer Sugar BD Posiflush) Active 2016 [facility] ondansetron Notes: (Same as: No Longer H Sugar Zofran) Active 2016 [facility] MEDICATION WASTE Product Size: 4 mg Product Wasted: ___ mg meclizine Notes: (Same as: No Longer Sugar Antivert) Active 2016 [facility] ANES albuterol 90 2 puff, Route: Inactive Sugar mcg/inh INHALER, Dosing 2016 [facility] inhalation Weight 69.091, aerosol kg, Q5Min, PRN Wheezing, Start date: 03/29/17 11:11:00 CDT, Duration: 4 doses or times, Stop date: Limited # of times insulin lispro 6 unit, Route: Inactive Sugar SUB-Q, Sliding 2016 [facility] Scale, Dosing Weight 69.091, kg, PRN Blood Glucose Results, Start date: 03/29/17 11:11:00 CDT, Duration: 30 day, Stop date: 04/28/17 10:10:00 HYDROELECTRIC MACHINERY MECHANIC HELPER ANES 0.5 mg, Route: Inactive Sugar HYDROmorphone IVP, Q5Min, 2016 [facility] Dosing Weight 69.091, kg, PRN Pain Score 7-10, Start date: 03/29/17 11:11:00 CDT, Duration: 2 doses or times, Stop date: Limited # of times ANES fentaNYL 50 microgram, Inactive Sugar Route: IVP, 2016 [facility] Q5Min, Dosing Weight 69.091, kg, PRN Pain Score 7-10, Priority: Routine, Start date: 03/29/17 11:11:00 CDT, Duration: 2 doses or times, Stop date: Limited # of times ANES oxyCODONE 10 mg, Route: Inactive Sugar PO, Drug form: 2016 [facility] TAB, Q4H, Dosing Weight 69.091, kg, PRN Pain Score 7-10, Start date: 03/29/17 11:11:00 CDT, Duration: 30 day, Stop date: 04/28/17 11:10:00 HYDROELECTRIC MACHINERY MECHANIC HELPER ANES flumazenil 0.2 mg, Route: Inactive Sugar IVP, PRN, Dosing 2017 Land Weight 69.091, kg, PRN Benzodiazepine Reversal, Initial dose, Start date: 03/29/17 11:11:00 CDT, Duration: 30 day, Stop date: 04/28/17 10:10:00 HYDROELECTRIC MACHINERY MECHANIC HELPER ANES naloxone 0.4 mg, Route: Inactive Sugar IVP, Q2MIN, 2016 [facility] Dosing Weight 69.091, kg, PRN Narcotic Reversal, Start date: 03/29/17 11:11:00 CDT, Duration: 8 doses or times, Stop date: Limited # of times ANES promethazine 6.25 mg, Route: Inactive 03/29 Sugar IVPB, ONCE, 2016 [facility] Dosing Weight 69.091, kg, PRN Nausea & Vomiting, Start date: 03/29/17 11:11:00 CDT ANES meperidine 12.5 mg, Route: Inactive Sugar IVP, Q30Min, 2016 [facility] Dosing Weight 69.091, kg, PRN Other -See Comment, For shivering, Start date: 03/29/17 11:11:00 CDT, Duration: 2 doses or times, Stop date: Limited # of times ANES ondansetron 4 mg, Route: Inactive 03/29/ H Sugar IVP, ONCE, 2016 [facility] Dosing Weight 69.091, kg, PRN Nausea & Vomiting, Start date: 03/29/17 11:11:00 CDT ANES 4 mg, Route: Inactive 03/29[facility] Sugar dexamethasone IVP, ONCE, 2016 [facility] Dosing Weight 69.091, kg, PRN Nausea & Vomiting, Start date: 03/29/17 11:11:00 CDT ANES 12.5 mg, Route: Inactive Suga r diphenhydrAMINE IVP, Drug form: 2016 [facility] INJ, Q6H, Dosing Weight 69.091, kg, PRN Itching, Start date: 03/29/17 11:11:00 CDT, Duration: 30 day, Stop date: 04/28/17 11:10:00 HYDROELECTRIC MACHINERY MECHANIC HELPER ANES 1,000 mg, Route: Inactive Sug ar acetaminophen PO, Drug form: 2016 [place] TAB, ONCE, Dosing Weight 69.091, kg, PRN Pain Score 1-3, Start date: 03/29/17 11:11:00 CDT, Duration: 1 doses or times, Stop date: Limited # of times ANES Enalaprilat 0.625 mg, Route: Inactive 03/29 Sugar IVP, Q5Min, 2016 [facility] Dosing Weight 69.091, kg, PRN Elevated BP, Start date: 03/29/17 11:11:00 CDT, Duration: 4 doses or times, Stop date: Limited # of times ANES labetalol 10 mg, Route: Inactive Sugar IVP, Q5Min, 2016 [facility] Dosing Weight 69.091, kg, PRN Elevated BP, Start date: 03/29/17 11:11:00 CDT, Duration: 5 doses or times, Stop date: Limited # of times ropivacaine 0.2% Notes: Same as: No Longer 03/29 Sugar 200ml CADD 200 mL Naropin Active 2016 [facility] glycopyrrolate Route: IV, Drug Inactive Sugar (ANES) form: INJ, ONCE, 2016 Stop date: 03/29/17 10:54:00 CDT neostigmine Route: IV, Drug Inactive Sugar (ANES) form: INJ, ONCE, 2016 Stop date: 03/29/17 10:54:00 CDT ondansetron Route: IV, Drug Inactive Sugar (ANES) form: INJ, ONCE, 2016 Stop date: 03/29/17 10:49:00 CDT dexamethasone Route: IV, Drug Inactive 03/29/ M H Sugar (ANES) form: INJ, ONCE, 2016 Stop date: 03/29/17 10:44:00 CDT phenylephrine Route: IV, Drug Inactive 03/29/ M H Sugar (ANES) form: INJ, ONCE, 2016 Stop date: 03/29/17 10:09:00 CDT ePHEDrine (ANES) Route: IV, Drug Inactive Sugar form: INJ, ONCE, 2016 Stop date: 03/29/17 10:09:00 CDT fentaNYL (ANES) Route: IV, Drug Inactive 03/29/ MH Sugar form: INJ, ONCE, 2016 [facility] Stop date: 03/29/17 9:44:00 CDT midazolam (ANES) Route: IV, Drug Inactive 30/ MH Sugar form: SOLN, 2016 ONCE, Stop date: 03/29/17 9:44:00 CDT lidocaine (ANES) Route: IV, Drug Inactive 03/29/ MH Sugar form: INJ, ONCE, 2016 Stop date: 03/29/17 9:39:00 CDT propofol (ANES) Route: IV, Drug Inactive 03/29/ MH Sugar form: INJ, ONCE, 2016 [facility] Stop date: 03/29/17 9:39:00 CDT rocuronium (ANES) Route: IV, Drug Inactive 03/29 / MH Sugar form: INJ, ONCE, 2016 [facility] Stop date: 03/29/17 9:39:00 CDT vancomycin (ANES) Route: IV, Drug Inactive 03/29 / MH Sugar form: INJ, ONCE, 2016 [facility] Stop date: 03/29/17 9:25:00 CDT metroNIDAZOLE Route: IV, Drug Inactive 03/29/ M H Sugar (ANES) form: INJ, ONCE, 2016 [facility] Stop date: 03/29/17 9:24:00 CDT LR 1000 mL INJ Route: IV, Total Inactive 03/29/ MH Sugar (ANES) Volume: 1,000, 2016 [facility] Start date: 03/29/17 8:13:00 CDT, Stop date: 03/29/17 9:13:00 CDT lidocaine 1% Notes: Inactive 03/29/ Sugar Preservative 2016 free. (Same as: Xylocaine MPF) Lactated Ringers 1,000 mL, Rate: Inactive 03/29/ MH Sugar 1,000 mL 25 ml/hr, Infuse 2016 [facility] over: 40 hr, Route: IV, Dosing Weight 69.091 kg, Total Volume: 1,000, Start date: 03/29/17 6:25:00 CDT, Duration: 30 day, Stop date: 04/28/17 6:24:00 HYDROELECTRIC MACHINERY MECHANIC HELPER Neurontin Notes: (Same as: Inactive 03/29/ S ugar Neurontin) 2016 Lovenox Notes: (Same as: Inactive Sug ar Lovenox) 2017 [place] Flagyl Notes: (Same as: Inactive Sug ar Flagyl) Avoid 2017 [place] alcohol. Robaxin Notes: (Same Inactive Sugar as:Robaxin) 2016 [place] acetaminophen Notes: Max Inactive Sug ar acetaminophen 2017 [place] 4000 mg/day (4 gm/day). (Same as: Tylenol Extra Strength) Entereg Notes: Same as: Inactive Suga r Entereg 2017 Land Maximum of 15 doses Alert Restricted medication Alvimopan (Entergen) order form must be completed prior to dispensing. Allergies, Adverse Reactions, Alerts Substance Category Reaction Severity Reaction Status Date Comments S ource type Reported penicillins Assertion itching Drug Active Data OPID <sup>1</sup allergy migrated [place] > from [facility] on 12/27/14. Originally documented as PCN. Immunizations No Data Provided for This Section Results Order Name Results Value Reference Date Interpretation Comments Celia rce Range CHEM PANEL eGFR 77 03/31 Result Comment: The Sugar eGFR is Land calculated using the CKD-EPI formula. In most young, healthy individuals the eGFR will be >90 mL/min/1.73m2 . The eGFR declines with age. An eGFR of 60-89 may be normal in some populations, particularly the elderly, for whom the CKD-EPI formula has not been extensively validated. Use of the eGFR is not recommended in the following populations:< br/>
Kavita viduals with unstable creatinine concentration s, including patients and those with serious co-morbid conditions.<b r/>
Patie nts with extremes in muscle mass or diet.

The data above are obtained from the National Kidney Disease Education Program (NKDEP) which additionally recommends that when the eGFR is used in patients with extremes of body mass index for purposes of drug dosing, the eGFR should be multiplied by the estimated BMI. CHEM PANEL Creatinine 0.73 0.50 - 03/31 [facility] Lvl 1.40 /2017 [place] CHEM PANEL Sodium Lvl 140 135 - 145 03/31 [facility] CHEM PANEL BUN 13 7 - 22 03/31 [facility] CHEM PANEL AST 19 0 - 37 03/31 [facility] CHEM PANEL Alk Phos 60 39 - 136 03/31 [facility] CHEM PANEL Bili Total 0.4 0.2 - 1.3 03/31 [facility] CHEM PANEL Total Protein 7.3 6.4 - 8.4 03/31 [facility] CHEM PANEL Calcium Lvl 8.9 8.5 - 10.5 03/31 [facility] CHEM PANEL ALT 15 0 - 65 03/31 [facility] CHEM PANEL Albumin Lvl 3.5 3.5 - 5.0 03/31 [facility] CHEM PANEL CO2 30 24 - 32 03/31 [facility] CHEM PANEL Chloride Lvl 104 95 - 109 03/31 [facility] CHEM PANEL Potassium Lvl 3.9 3.5 - 5.1 03/31 [facility] CHEM PANEL Glucose Lvl 105 70 - 99 03/31 [facility] CHEM PANEL Globulin 3.8 2.7 - 4.2 03/31 [facility] CHEM PANEL A/G Ratio 0.9 0.7 - 1.6 03/31 [facility] CHEM PANEL B/C Ratio 18 6 - 25 03/31 [facility] CHEM PANEL AGAP 9.9 10.0 - 03/31 MH 20.0 [facility] HEMATOLOGY Basophils # 0.0 0.0 - 0.2 03/31 [facility] HEMATOLOGY Eosinophils # 0.0 0.0 - 0.5 03/31 [facility] HEMATOLOGY Neutrophils # 6.0 1.5 - 8.1 03/31 [facility] HEMATOLOGY Lymphocytes # 1.6 1.0 - 5.5 03/31 [facility] HEMATOLOGY Monocytes # 0.4 0.0 - 0.8 03/31 [facility] HEMATOLOGY Monocytes 4.9 2.0 - 12.0 03/31 [facility] HEMATOLOGY Eosinophils 0.5 0.0 - 4.0 03/31 [facility] HEMATOLOGY Basophils 0.4 0.0 - 1.0 03/31 [facility] HEMATOLOGY Segs 74.6 45.0 - 03/31 MH 75.0 /2017 [place] HEMATOLOGY Lymphocytes 19.6 20.0 - 03/31 MH 40.0 /2017 [place] HEMATOLOGY MPV 7.4 7.4 - 10.4 03/31 [facility] HEMATOLOGY MCH 31.7 27.0 - 03/31 MH 31.0 [place] HEMATOLOGY MCHC 34.2 32.0 - 03/31 MH 36.0 [facility] HEMATOLOGY MCV 92.7 80.0 - 03/31 MH 98.0 [facility] HEMATOLOGY WBC 8.0 3.7 - 10.4 03/31 [facility] HEMATOLOGY RDW 15.8 11.5 - 03/31 MH 14.5 [facility] HEMATOLOGY Platelet 214 133 - 450 03/31 [facility] HEMATOLOGY Hct 34.4 36.0 - 11 MH 48.0 [place] HEMATOLOGY RBC 3.71 4.20 - 03/31 MH 5.40 [facility] HEMATOLOGY Hgb 11.7 12.0 - 03/31 MH 16.0 [facility] CHEM PANEL Magnesium Lvl 2.5 1.8 - 2.4 03/30 [facility] CHEM PANEL Phosphorus 2.7 2.5 - 4.5 03/30 [facility] ELECTROLYTE AGAP 12.3 10.0 - 03/30 MH S 20.0 [facility] ELECTROLYTE eGFR 67 03/30 Comment: The [facility] eGFR is [place] calculated using the CKD-EPI formula. In most young, healthy individuals the eGFR will be >90 mL/min/1.73m2 . The eGFR declines with age. An eGFR of 60-89 may be normal in some populations, particularly the elderly, for whom the CKD-EPI formula has not been extensively validated. Use of the eGFR is not recommended in the following populations:< br/>
Kavita viduals with unstable creatinine concentration s, including patients and those with serious co-morbid conditions.<b r/>
Patie nts with extremes in muscle mass or diet.

The data above are obtained from the National Kidney Disease Education Program (NKDEP) which additionally recommends that when the eGFR is used in patients with extremes of body mass index for purposes of drug dosing, the eGFR should be multiplied by the estimated BMI. ELECTROLYTE Sodium Lvl 143 135 - 145 03/30 S [place] ELECTROLYTE Calcium Lvl 7.7 8.5 - 10.5 03/30 S [place] ELECTROLYTE CO2 25 24 - 32 03/30 [facility] ELECTROLYTE Chloride Lvl 110 95 - 109 03/30 S [place] ELECTROLYTE Potassium Lvl 4.3 3.5 - 5.1 03/30 S [place] ELECTROLYTE Creatinine 0.82 0.50 - 03/30 MH S Lvl 1.40 [place] ELECTROLYTE BUN 11 7 - 22 03/30 S [place] ELECTROLYTE Glucose Lvl 165 70 - 99 03/30 S [place] HEMATOLOGY Hgb 7.2 12.0 - 03/30 MH 16.0 [place] HEMATOLOGY Hct 23.2 36.0 - 03/30 MH 48.0 [place] BLOOD BANK Antibody Scrn Negative 03/23 RESULTS (03/23/17 11:38 AM) /2016 [place] [facility] BLOOD BANK ABO/Rh A POS 03/23 RESULTS [place] CHEM PANEL Bili Direct 0.1 0.0 - 0.3 03/23 [place] CHEM PANEL A/G Ratio 0.9 0.7 - 1.6 03/23 [place] CHEM PANEL B/C Ratio 27 6 - 25 03/23 [place] CHEM PANEL Globulin 3.8 2.7 - 4.2 03/23 [place] CHEM PANEL AGAP 11.2 10.0 - 03/23 MH 20.0 [place] CHEM PANEL Albumin Lvl 3.6 3.5 - 5.0 03/23 [place] CHEM PANEL Total Protein 7.4 6.4 - 8.4 03/23 [place] CHEM PANEL ALT 11 0 - 65 03/23 [place] CHEM PANEL Potassium Lvl 4.2 3.5 - 5.1 03/23 [place] CHEM PANEL Chloride Lvl 106 95 - 109 03/23 [place] CHEM PANEL Glucose Lvl 101 70 - 99 03/23 [place] CHEM PANEL BUN 22 7 - 22 03/23 [place] CHEM PANEL Creatinine 0.82 0.50 - 03/23 MH Lvl 1.40 [place] CHEM PANEL Sodium Lvl 141 135 - 145 03/23 [place] CHEM PANEL eGFR 67 03/23 Result Comment: The [place] eGFR is [place] calculated using the CKD-EPI formula. In most young, healthy individuals the eGFR will be >90 mL/min/1.73m2 . The eGFR declines with age. An eGFR of 60-89 may be normal in some populations, particularly the elderly, for whom the CKD-EPI formula has not been extensively validated. Use of the eGFR is not recommended in the following populations:< br/>
Kavita viduals with unstable creatinine concentration s, including patients and those with serious co-morbid conditions.<b r/>
Patie nts with extremes in muscle mass or diet.

The data above are obtained from the National Kidney Disease Education Program (NKDEP) which additionally recommends that when the eGFR is used in patients with extremes of body mass index for purposes of drug dosing, the eGFR should be multiplied by the estimated BMI. CHEM PANEL Calcium Lvl 8.7 8.5 - 10.5 03/23 [place] CHEM PANEL CO2 28 24 - 32 03/23 [place] CHEM PANEL Alk Phos 58 39 - 136 03/23 [place] CHEM PANEL AST 14 0 - 37 03/23 [place] CHEM PANEL Bili Total 0.4 0.2 - 1.3 03/23 [place] HEMATOLOGY MPV 7.2 7.4 - 10.4 03/23 [place] HEMATOLOGY Hct 25.9 36.0 - 10 MH 48.0 2017 [place] HEMATOLOGY MCHC 31.8 32.0 - 10 MH 36.0 [place] HEMATOLOGY RDW 17.7 11.5 - 10 MH 14.5 /2017 [place] HEMATOLOGY Platelet 313 133 - 450 03/23 [place] HEMATOLOGY MCH 23.6 27.0 - 10 MH 31.0 2017 [place] HEMATOLOGY MCV 74.2 80.0 - 03/23 MH 98.0 /2017 [place] HEMATOLOGY RBC 3.48 4.20 - 10 MH 5.40 /2017 [place] HEMATOLOGY Hgb 8.2 12.0 - 10 MH 16.0 [place] HEMATOLOGY WBC 8.5 3.7 - 10.4 03/23 [place] HEMATOLOGY Monocytes # 0.6 0.0 - 0.8 03/23 [place] HEMATOLOGY Basophils # 0.0 0.0 - 0.2 03/23 [place] HEMATOLOGY Eosinophils # 0.1 0.0 - 0.5 10 MH /2016 [place] HEMATOLOGY Segs 59.4 45.0 - 03/23 MH 75.0 /2016 [place] HEMATOLOGY Lymphocytes 32.4 20.0 - 10 MH 40.0 [place] HEMATOLOGY Monocytes 6.9 2.0 - 12.0 10 MH /2016 [place] HEMATOLOGY Eosinophils 0.8 0.0 - 4.0 10 MH /2016 [place] HEMATOLOGY Lymphocytes # 2.8 1.0 - 5.5 10 [place] HEMATOLOGY Basophils 0.5 0.0 - 1.0 10 [place] HEMATOLOGY Segs-Bands # 5.1 1.5 - 8.1 10 /2016 [place] HEMATOLOGY PTT 30.6 22.9 - 03/23 MH 35.8 [place] HEMATOLOGY PT 13.8 12.0 - 03/23 MH 14.7 /2016 [place] HEMATOLOGY INR 1.06 0.85 - 03/23 MH 1.17 /2016 [place] TUMOR CEA 1.8 0.0 - 3.0 03/23 MH MARKERS /2016 [place] URINE AND UA Blood Negative Negative 03/23 MH STOOL (03/23/17 11:38 AM) /2016 [place] URINE AND UA Bili Negative Negative 03/23 STOOL *NA* /2016 [place] (03/23/17 11:38 AM) [place] URINE AND UA pH 8.0 5.0 - 8.0 03/23 MH STOOL /2016 [place] URINE AND UA Spec Grav 1.009 <=1.030 03/23 MH STOOL /2016 [place] URINE AND UA Protein Negative Negative 03/23 MH STOOL mg/dL mg/dL /2016 [place] URINE AND UA Turbidity Slight Clear 03/23 MH STOOL *ABN* /2016 [place] (03/23/17 11:38 AM) [place] URINE AND UA Color Yellow Yellow 03/23 MH STOOL *NA* /2016 [place] (03/23/17 11:38 AM) [place] URINE AND UA <=1.0 mg/dL 0.1 - 1.0 03/23 MH STOOL Urobilinogen /2016 [place] URINE AND UA Sq Epi Occasional Few /LPF 03/23 STOOL /LPF /2016 [place] URINE AND UA Nitrite Negative Negative 03/23 MH STOOL (03/23/17 11:38 AM) [place] URINE AND UA Leuk Est Negative Negative 03/23 STOOL (03/23/17 11:38 AM) [place] URINE AND UA Ketones Negative Negative 03/23 [facility]OL mg/dL mg/dL [place] URINE AND UA Glucose Negative Negative 03/23 [facility]OOL mg/dL mg/dL [place] URINE AND UA WBC <1 0 - 5 03/23 MH STOOL [place] URINE AND UA Bacteria Occasional None Seen 03/23 STOOL /HPF /HPF [place] URINE AND UA RBC 2 0 - 2 03/23 MH STOOL [place] BLOOD BANK RBC product Product available 03/23 RESULTS (03/23/17 11:25 AM) Daylin Cruz Pathology Reports No Data Provided for This Section Diagnostic Reports Report Value Date Source Chest/Abdomen/Pelvis w Clinical Indication: - C18. 3 Malignant neoplasm of hepatic flexure. . 05/18/2018 [facility] IV contrast CT Comparison: CT chest abdomen pelvis 11/22/2017 Technique: Multi-detector CT imaging of the chest, abdomen and pelvis is performed with intravenous contrast. Axial, coronal and sagittal reconstructions were obtained. IV Contrast: 100 ml Omnipaque 300 Enteric Contrast: Omnipaque CT imaging performed at this location utilizes radiation dose optimization techniques which include one or more of the following: -Automated exposure control -Adjustment of the mA and/or kV according to pat ient size -Use of iterative reconstruction technique CT Radiation Dose DLP 667.50 mGy-cm FINDINGS: BASE OF NECK: Unremarkable. VASCULATURE: Moderate athero sclerotic calcifications are present in the thoracic aorta. The great vessels and superior vena cava are normal in appearance. CARDIAC: The heart is normal in size. No pericardial effusion. Severe coronary artery atherosclerosis is seen in the left main, left anterior descending, left circumflex, and right coronary arteries. Op acifications are present at the mitral annulus a nd aortic valve. THORACIC LYMPH NODES: There is no mediastinal or hilar lymphadenopathy. No axillary lymphadenopathy. LUNGS: A 4 mm right middle l obe pulmonary nodule (series 3 image 149) is not significantly changed. A 3 mm subpleural nodule in the left lower lobe (series 3 image 126) is not significantly changed. A 3 mm subpleural nodule in the left lower lobe (series 3 image 101) is not significantly changed. Subsegmental atelectasis is present at the lung bases. No pleural effusions. No pneumothorax. The central airway is normal. HEPATOBILIARY: A 0.8 cm hypo attenuating lesion in hepatic segment 6 is incompletely characterized, but not significantly changed dating back to 05/10/2017. The gallbladder has a normal CT appearance. SPLEEN: The spleen is unremarkable. PANCREAS: The pancreas is unremarkable. ADRENAL GLANDS: The adrenal glands are normal. KIDNEYS AND URETERS: The kid graciela enhance symmetrically. No radiopaque renal stones. No hydronephrosis. A subcentimeter too small to characterize hypodensity in the mid right kidney is not significantly changed. BOWEL: The stomach is unrema rkable. The bowel is normal in caliber. The appendix is normal. Sigmoid colonic diverticulosis is present, without CT evidence of diverticulitis. There is postsurgical barker e of right hemicolectomy with an ileocolic anast omosis. PERITONEUM AND RETROPERITONEUM: There is no free fluid. No free air. ABDOMINAL/PELVIC LYMPH NODES : Prominent right lower quadrant mesenteric lymph node measures 0.9 x 1.2 cm (series 2 image 77), which is not significantly changed from 1 x 1.3 cm on the prior exam, but increased from 0.8 x 0.7 cm on 05/10/2017. VASCULATURE: Abdominal aorta is normal in caliber with moderate atheromatous changes. The main portal vein is patent. The IVC is unremarkable. PELVIS: The urinary bladder has a normal appearance given its degree of distention. A calcified uterine fibroid is present. MUSCULOSKELETAL: No acute os seous abnormality. No suspicious osseous lesion. Degenerative changes are present in the thoracolumbar spine. IMPRESSION: 1. No significant change from the prior exam. 2. A nonspecific, prominent right lower quadrant mesenteric lymph node is not significantly changed from the prior exam but increased in size from 05/10/2017. 3. Stable pulmonary nodules, measuring up to 4 mm. 4. Postsurgical change of right hemicolectomy. 5. No significant change in a 0.8 cm incompletely characterized hypodensity in the right lobe of the liver. SL: [id number] Chest 1view DX PORTABLE CHEST AP SEMIERECT 04/08/2018, 10:09 AM 04/08/2018 [place] HISTORY: Post Port-A-Cath removal. Compared to exam dated 05/03/2017. Mild hypoventilation. The he art size is probably normal. Mild peribronchial thickening at the left lung base again noted. Minimal stranding in the medial left upper lobe. No evidence of edema, pneumonia , or pleural effusions. The bony structures are demineralized with degenerative changes in the thoracic spine. Right Port-A-Cath has been removed since prior exam. No other significant new finding or change seen. IMPRESSION: Right Port-A-Cath has been removed since prior e xam. Chest/Abdomen/Pelvis w Study: Chest/Abdomen/Pelvis w IV contrast CT 11/22/2017 DONNIE [place] IV contrast CT Clinical Indication: - colon ca Comparison: CT of the chest, abdomen, pelvis fro m 05/10/2017 Technique: Multiple axial CT images of the chest, abdomen, and pelvis were acquired following the administration of intravenous contrast. Coronal and sagittal reconstructions were obtained. Oral contrast was administered to the patient. CT Radiation Dose DLP 635.91 mGy-cm Findings: Right-sided Port-A -Cath is present. Cardiac chambers and pericardium are unremarkable. Aortic annular, coronary artery, and thoracic aortic calcifications are seen. No filling defects are note d within the central pulmona ry arteries. No pathologic mediastinal, hilar, or axillary adenopathy is seen. No endobronchial lesions are identified within the central airways. Peripheral 3 mm nodule in t he right middle lobe abuttin g the pleura is present and stable (image 147 of series 3). A miniscule right pleural effusion is seen. There is no pneumothorax. The liver, gallbladder, panc reas, spleen, adrenal glands, and kidneys have normal CT appearance. No intrahepatic or extra hepatic biliary duct dilatation is seen. Urinary bladder is mildly distended. Calcified, degenerating uter ine leiomyoma is seen. Postoperative changes of colectomy of the ascending colon are seen. Sigmoid diverticula are noted. The remaining visualized hollow viscera are unremark able. Diffuse arterial calci fications are seen. No intraperitoneal free air, free fluid, or pathologic adenopathy is seen. The superficial soft tissues are normal in appea dorothea. No suspicious osseous lesion s are noted. Degenerative changes of the lumbar spine are present. IMPRESSION: 1. Stable 3 mm right middle lobe pulmonary nodul e. 2. Miniscule right pleural effusion. 3. No evidence of recurrent or metastatic diseas e to the abdomen/pelvis. SL: [id number] Chest/Abdomen/Pelvis w EXAM: CT chest, abdomen and pelvis 2016 DONNIE [place] IV contrast CT HISTORY: Colon cancer, stage III COMPARISON: None TECHNIQUE: Axial images with sagittal and coronal reformats. IV and oral contrast. DLP 1262 FINDINGS: CHEST LUNGS: 2-3 mm nodule right m iddle lobe, series 2, image 36 and question of a 2 mm subpleural nodule left lower lobe, image 31. MEDIASTINUM: No bulky adenop athy. Right subclavian Port-A-Cath in the SVC. Coronary artery calcifications. PLEURA: No pleural effusion. ABDOMEN AND PELVIS GASTROINTESTINAL TRACT: Right hemicolectomy. Div erticulosis sigmoid colon. SOLID ORGANS: Fatty liver. 8 mm hypodense lesion right hepatic lobe has attenuation slightly higher than simple fluid. 9 mm cortical lesion left mid kidney has attenuation higher than fluid. Cholelithiasis. Calcified uterine fibroid. The right kidney, spleen, ad renals and pancreas are unremarkable. The bladder is slightly underdistended. PERITONEUM AND RETROPERITONE UM: No bulky adenopathy or free fluid. Atherosclerosis aorta. BONES: Scoliosis and spondylosis thoracolumbar s pine. IMPRESSION: 1. Right hemicolectomy. No l ocally recurrent or definite metastatic disease is seen. 2. Fatty liver. Small lesion right hepatic lobe may be a cyst or hemangioma. A follow-up CT in 6-12 months can be obtained to document stability. 3. Small lesion left kidney may reflect a complex or hyperdense cyst; solid neoplasm is not excluded. This can be reevaluated at follow-up CT. 4. Tiny lung nodule right mi ddle lobe and possibly left lower lobe are nonspecific. Follow-up CT chest in 12 months can document stability. 5. Coronary artery calcifications. 6. Diverticulosis sigmoid colon. 7. Uterine fibroids. 13 Chest 1view DX Exam: Chest X-ray, 1 view : 05/03/2017 [place] History: post port-a-cath placement - line place ment . Comparison: None . Findings: Single portable f rontal view of the chest.Right IJ Port-A-Cath with its tip in the superior vena cava is noted. There is no evidence of pneumothorax. The heart size is normal. Th e mediastinum is normal. The pulmonary vascularity is normal. The lungs are clear without consolidation or effusion. Nonspecific increase in interstitial markings are noted i n the perihilar region in the lung bases. No acu te bony abnormality. Impression: 1. No evidence of pneumothorax. Right IJ Port-A -Cath placement.. Fluoroscopy assist to 1 No report is required for this exam. 08/2016 [place] hour DX Technical component complete. Consultation Notes No Data Provided for This Section Discharge Summaries No Data Provided for This Section History and Physicals No Data Provided for This Section Vital Signs Vital Sign Value Date Comments Source BMI Calculated 24.56 11/01/2018 [facility] Weight 62.898 11/01/2018 [facility] Height 160.02 cm 11/01/2018 [facility] Heart Rate 103 11/01/2018 [facility] Systolic (mm Hg) 195 11/01/2018 [facility] Diastolic (mm Hg) 65 11/01/2018 [facility] Weight 62.273 05/03/2018 [facility] BMI Calculated 24.32 05/03/2018 [facility] Height 160.02 cm 05/03/2018 [facility] Systolic (mm Hg) 171 05/03/2018 [facility] Diastolic (mm Hg) 81 05/03/2018 [facility] Systolic (mm Hg) 165 04/08/2018 [facility] [place] Diastolic (mm Hg) 84 04/08/2018 MH [place] and Respitory Rate 17 04/08/2018 [facility] [place] Systolic (mm Hg) 170 04/08/2018 [facility] [place] Diastolic (mm Hg) 74 04/08/2018 MH [place] and Respitory Rate 19 04/08/2018 [facility] [place] Systolic (mm Hg) 174 04/08/2018 [facility] [place] Diastolic (mm Hg) 62 04/08/2018 MH [place] and Respitory Rate 17 04/08/2018 [place] Weight 57.869 04/08/2018 [place] BMI Calculated 22.6 04/08/2018 [facility] [place] Heart Rate 62 03/31/2018 [facility] [place] Height 160.02 cm 03/31/2018 [place] Height 160.02 cm 10/05/2017 [facility] Weight 62.898 10/05/2017 [facility] BMI Calculated 24.56 10/05/2017 [facility] Systolic (mm Hg) 165 10/05/2017 [facility] Diastolic (mm Hg) 80 10/05/2017 [facility] Respitory Rate 14 05/03/2017 MH [place] Systolic (mm Hg) 167 05/03/2017 [facility] [place] Diastolic (mm Hg) 56 05/03/2017 MH [place] and Respitory Rate 15 05/03/2017 MH [place] Systolic (mm Hg) 179 05/03/2017 [facility] [place] Diastolic (mm Hg) 77 05/03/2017 MH [place] and Systolic (mm Hg) 188 05/03/2017 [facility] [place] Diastolic (mm Hg) 54 05/03/2017 MH [place] and Respitory Rate 14 05/03/2017 MH [place] Heart Rate 64 05/03/2017 [facility] [place] BMI Calculated 28.4 05/03/2017 [facility] [place] Weight 68.182 05/03/2017 [facility] [place] Height 154.94 cm 04/30/2017 [facility] [place] Temperature Oral (F) 98.8 F 03/31/2017 [place] Respitory Rate 18 03/31/2017 MH [place] Heart Rate 83 03/31/2017 [facility] [place] Systolic (mm Hg) 164 03/31/2017 [facility] [place] Diastolic (mm Hg) 70 03/31/2017 [place] and Respitory Rate 20 03/31/2017 MH [place] Systolic (mm Hg) 160 03/31/2017 [facility] [place] Diastolic (mm Hg) 72 03/31/2017 [place] and Temperature Oral (F) 98.3 F 03/31/2017 [place] Heart Rate 92 03/31/2017 MH [place] Systolic (mm Hg) 189 03/31/2017 [facility] [place] Diastolic (mm Hg) 70 03/31/2017 [place] [facility] and Heart Rate 90 03/31/2017 MH [place] Respitory Rate 20 03/31/2017 [place] Temperature Oral (F) 98.1 F 03/31/2017 [place] Weight 68.182 03/29/2017 MH [place] Height 160.02 cm 03/29/2017 [place] BMI Calculated 26.63 03/29/2017 [place] Height 157.48 cm 03/23/2017 [facility] [place] Weight 69.091 03/23/2017 [facility] [place] BMI Calculated 27.86 03/23/2017 [facility] [place] Encounters Location Location Encounter Encounter Reason Attending ADM ME Stat Source Details Type Number For Provider Date Date Visit Outpatient [id number] [facility]Y [facility]/02 [facility] [id number] RANDY 07/11 [facility] [id number] RANDY 07/18 [facility] [id number] RANDY 01/15 [facility] Outpatient [id number] RANDY 01/28 [facility] [id number] RANDY 02/09 [facility]2016 [facility] Outpatient [id number] RANDY 03/11 [facility]2016 [facility] Inpatient [id number] Jeff 03/29 03/31 [facility] M[facility]uia /2016 [place] [facility] Day Surgery [id number] Jeff 05/03 05/03 [facility] /2016 [place] [facility] Outpt Diag [id number] [facility] 05[facility] [id number] 09/13 09/15 [facility] Message /2017 [facility] Outpatient [id number] RANDY 10/05 Active [facility] Outpatient [id number] Randy 10/05 10/06 Gastroenter Weeks /2017 Med ical [facility]logy Group Naveen [facility] Outpt Diag [id number] [facility] 11/22 11/23 [facility] Out[facility] Services /2017 [facility] [place] [facility] Phone [id number] 03/23 03/25 Gastroenter Message /[address] [facility] [place] Outpatient [id number] SCREENING 03/28 [facility] [id number] 03/28 03/30 Gastroenter Message /[address] [facility] Outpatient [id number] 03/28 03/29 Internal /2017 [facility] Day Surgery [id number] Jeff 04/08 04/08 [place] [facility] [place] /2017 [place] Outpatient [id number] RANDY 05/03 [facility] [id number] Randy 05/03 05/04 Gastroenter Weeks /2017 Med ical ology Group [facility] Outpt Diag [id number] Judi Moreno 05/18 05/19 [facility] Outpatient Services /2017 [facility] [place] Outpatient [id number] Randy 11/01 Active [facility] [id number] Randy 11/01 11/02 Gastroenter Weeks /2018 Med ical ology Group [facility] [id number] 11/02 11/03 Gastroenter Visit /2018 Medic al ology Group [place] Procedures Procedure Code Date Perfomer Comments Source Colonoscopy [id number] 04/08/2018 [facility] Group, OPIJaime Kiran, Tanika Cruz, EDME Removal of [id number] 04/08/2018 PORT A CATH REMOVAL OF Medical Port-a-cath<sup>1 RIGHT UPPER CHEST BY Group, </sup> DR. MUNGUIA, DONNIE COLONOSCOPY WITH BIOPSY [place], BY DR. WEEKS. [place] L and Laparoscopic-assi [id number] 03/29/2017 Medi kiko sted right Group, colectomy [facility] Magno, Tanika Cruz, EDME Assessment and Plan Assessment and Plan Date Source Extracted from:Title: Colon and Rectal Surgery 04/08/2018 Tanika Cruz Author: Jeff Munguia MD Date: 04/08/18 PATIENT: RADHA BARAHONA DATE OF PROCEDURE: 04/08/2018 SERVICE: Colon and Rectal Surgery SURGEON: Jeff Munguia M.D. GOVERNMENT RELATIONS DIRECTOR: None. PREOPERATIVE DIAGNOSIS: 1. 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 2. Central venous device with subcutaneous port. POSTOPERATIVE DIAGNOSIS: 1. Malignant neoplasm of the cecum colon (Stage III, pT3N1) status post adjuvant chemotherapy. 2. Central venous device with subcutaneous port. PROCEDURE: Port-a-cath removal. ANESTHESIA: General endotracheal. IV FLUIDS: 1200 mL crystalloid. URINE OUTPUT: Not recorded. ESTIMATED BLOOD LOSS: 5 mL. BLOOD PRODUCTS ADMINISTERED: None. GRAFT OR IMPLANTS: None. DRAINS: None. FINDINGS: Port-a-cath in the right internal jugular vein. INDICATION FOR PROCEDURE: 82 year old woman with Stage III colon c ancer of the cecum, who has now completed adjuvant chemotherapy. She is not using her port and asked to have it removed. I discussed this with her oncologist who agreed with removal. Treatment plans, ri sks, complications, benefits, and alternatives were discussed in detail. Informed consent was obtained. DESCRIPTION OF PROCEDURE: The patient was identified in preoperati ve holding area and taken to the OR where general anesthesia was administered and pre-operative antibiotics given. The patient was turned to the left lateral posi tion and a colonoscopy performed by Dr. Randy Weeks. Please see the [facility] report for the findings. The scope was then removed. The chest and abdomen were then prepped and draped in sterile manner. 30 cc of 0.5% Marcaine with epinephrine was injected around the port site. Using a 15- blade knife an elliptical incision was made ar ound the port incision site. The subcuta neous tissues were dissected free from the port. The port was then grasped with a towel clip and removed intact and sent to pathology. The site was throughly irri gated and the remaining capsule excised. The catheter tract was closed with a figure of eight 2-0 Vicryl x 2. The skin was then closed in two layer fashion, using 3-0 Vicryl and 4-0 Monocryl. Dermabond was then applied. This concluded the pro cedure. At the end of the procedure, all lap, sponge, needle, and instrument counts were reported correct x 2. I was present and scrubbed for the entire operation. SPECIMEN: Port-a-cath. Extracted from:Title: Colon and Rectal Surgery 05/03/[address] [facility] Author: Jeff Munguia MD Date: 05/03/17 PATIENT NAME: RADHA BARAHONA DATE OF OPERATION/PROCEDURE: 05/03/2017 SERVICE: Colon and Rectal Surgery SURGEON: Jeff Munguia M.D. ASSISTANTS: None. PREOPERATIVE DIAGNOSES: 1. 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 2. Need for central venous access for systemic chemotherapy . POSTOPERATIVE DIAGNOSES: 1. 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 2. Need for central venous access for systemic chemotherapy . PROCEDURES PERFORMED: 1. Insertion of tunneled central venous device with subcuta neous port. 2. Fluoroscopic guidance of central line placement. 3. Ultrasound guided venipuncture (right internal jugular v ein). ANESTHESIA: General endotracheal. ESTIMATED BLOOD LOSS: 5 cc. FLUIDS: 300 mL crystalloid. BLOOD PRODUCTS ADMINISTERED: None. IMPLANTS: 8-Latvian single-lumen Bard PowerPort. DRAINS: None. SPECIMENS: None. FINDINGS: Venipuncture under ultrasound guidance o f the right internal jugular vein had good flow and the guidewire advanced easily. INDICATIONS FOR PROCEDURE: 81 year old woman with Stage III right c olon cancer s/p laparoscopic right colectomy, who is in need of systemic chemotherapy. She was referred to nm for a port-a-cath placement. Treatment plans, benefi ts, risks, complications, and alternativ es were discussed in detail. Informed consent was obtained. DESCRIPTION OF PROCEDURE: The patient was brought to the operating room, placed in supine position and administered general endotracheal anesthesia. The neck and chest were prepped and draped in usual sterile fashion. Periopera tive antibiotics were given. The patien t was placed in Trendelenburg position. Using the ultrasound, I made a right internal jugular venipuncture. The right internal jugular vein was cannulated easil y and the guidewire was advanced into th e right atrium with the position confirmed by fluoroscopy. An blood gas was sent to confirm venous origin. A skin incision was made for the guidewire entrance. A 3 cm incision was made over the right c hest. A subcutaneous pocket was developed for the port using blunt dissection and electrocautery. An 8-[place] single-lumen Bard PowerPort catheter was tunneled from the guidewire incision to the port site. The dilator and sheath were advanced over the wire into the right internal jugular vein, confirmed by fluoroscopy. The guidewire and dilator were then rem henri. The tunneled catheter was advance d through the sheath into the superior vena cava. The sheath was then removed. The catheter was trimmed to proper length as confirmed by fluoroscopy. The mark ter was connected to the port. The port was secured to the adjacent tissue using 2-0 PDS suture x 2. Good venous return was obtained from the port, which was flushed with 10 mL of heparinized normal s vamsi. The catheter position was confir med by fluoroscopy with the tip position just proximal to the entrance of the right atrium. The port incision was irrigated and closed in 2-layer fashion using a running 3-0 Vicryl suture and a running 4-0 Monocryl subcuticular suture. The mini puncture site was closed with an interrupted 4-0 Monocryl suture. The skin incisions were sealed with Dermabond. The patient was extubated and taken to the PACU in stable condition. A stat chest x-ray was obtained in the PACU. I was present and scrubbed for the entirety of the operation. SPECIMENS: None. Extracted from:Title: Anesthesia [facility]MS Progress Note* 017 Tanika Cruz Author: Annamaria Gutierrez RN Date: 03/31/17 Patient: RADHA BARAHONA Age: 81 years Sex: Female : 1935 Associated Diagnoses: None Author: Annamaria Gutierrez RN Postoperative Information Surgery Done Procedure Location: Abdomen. Chief Complaint Continuing surgical site pain management Inpatient information Interaction with patient. Observation. Information from RN . Progress Note Date and Time of Visit: 03/31/2017 08:21 Post OP Day #: 2. Peripheral Nerve Block Nerve Block #: 1. Nerve Block Site: Quadratus Lumborum: Right, continuous. Infusion Medication: Ropivacaine: 0.2%. Pump Settings: Basal Rate ml/hr: 8 , Pat ient administered bolus ml/hr: 3 , Delay minutes: 30. Peripheral Nerve Block Nerve Block #: 2. Nerve Block Site: Quadratus Lumborum: Left, continuous. Infusion Medication: Ropivacaine: 0.2%. Pump Settings: Basal Rate ml/hr: 8 , Pat ient administered bolus ml/hr: 3 , Delay minutes: 30. Current Status Assessment Visual Analog Scale for Pain (VAS 0-10): At Rest: 0, With Ac tivity: 4. Pump Use: Occasional. Level of Sedation: Awake/Alert. Activity: Ambulating. Motor Block Residual Motor Weakness: No. Numbness Residual Sensory Numbness: No. 1st PO Analgesic SEE JUL. Site Assessment Non-tender, no redness, minimal swelling or bruising, No exudates, drainage, or bleeding. Side Effects None. Catheter(s) Removed All peripheral nerve catheters removed. Date/Time: 03/31/2017 08:21. Tip was intact. Plan [facility] Plan Discharge from [facility] care: Analgesics per Primary Service. Annamaria Carmen RN , am scribing for and in the presence of Dr. Gomez. Addendum by Jc Gomez MD on 04/01/2017 10:41 I, Dr Gomez, personally performed t he services described in this documentation, ascribed by APMS RN in my presence, and it is both accurate and complete. Extracted from:Title: Colon and Rectal Surgery Author: Jeff Munguia MD Date: 03/31/17 Admitting Physician: Jeff Munguia MD Date of Admission: 03/29/2017 Date of Discharge: 03/31/2017 Admission Diagnosis: 1. Hepatic flexure adenocarcinoma. 2. Chronic ulcerative colitis. Secondary Diagnosis: None Discharge Diagnosis: 1. Hepatic flexure adenocarcinoma. 2. Chronic ulcerative colitis. Consultations: Physical Therapy [facility]- Dr. Jack Roberson Operative Procedures: 03/29/17 1. Laparoscopic right colectomy with creation of ileocolosto my. 2. Primary repair of umbilical hernia. History: 81-year-old woman with good fun ctional status, who presented to my clinic after a diagnostic colonoscopy for anemia revealed a hepatic flexure mass with ulcerations. This was biosped and proven to be adenocarcinoma. She was seen by Amber Carmen and referred to me for surgical evaluation. Staging CT chest, abdomen, and pelvis were negative for metastatic disease. CEA level was elevated. She received [facility] prior to surgery. I had a long discussion with the patient and her family regarding the standard of care for patients with ulcerative colitis and colon carcinoma. The standard is to have a total colectomy. The paitent did not w ant this. I advised her that she is at increased risk for another malignancy in her colon, now that she has already had one. Treatment plans, risks, benefits, co mplications, and alternatives to a lapar oscopic right colectomy were discussed in detail with the patient. Informed consent was obtained. Hospital Course: She tolerated the procedure well and was sent to the floor post-operatively. Her flower was removed and she was started on clears on POD #1. By the evening of POD #1, she had return of bowel function and her diet was advanced to soft food. By POD #2, she was tolerating a soft t, ambulating, urinating, and her pain controlled on PO pain medications. She was discharged home. Discharge Instructions Activity: No heavy lifting > 10 lbs x 6 weeks, no driving while taking pain medications, shower daily and wash all incisions with soap and water Diet: Soft Medications (name, dose, route, frequency): Tramadol 50 mg PO q 6 hours prn pain Follow-Up: 2 week for a post operative appointment Extracted from:Title: Colon and Rectal Surgery Author: Jeff Munguia MD Date: 03/29/17 PATIENT NAME: RADHA BARAHONA DATE OF OPERATION/PROCEDURE: 03/29/2017 SERVICE: Colon and Rectal Surgery SURGEON: Jeff Munguia M.D. GOVERNMENT RELATIONS DIRECTOR: Vishal Salinas M.D. (no level appropriate residents joel bing to assist) PREOPERATIVE DIAGNOSES: 1. Hepatic flexure adenocarcinoma. 2. Chronic ulcerative colitis. POSTOPERATIVE DIAGNOSES: 1. Hepatic flexure adenocarcinoma. 2. Chronic ulcerative colitis. PROCEDURES PERFORMED: 1. Laparoscopic right colectomy with creation of ileocolosto my. 2. Primary repair of umbilical hernia. ANESTHESIA: 1. General endotracheal. 2. Quadratus lumborum block with catheters. ESTIMATED BLOOD LOSS: 10 mL INTRAVENOUS FLUIDS: 700 mL crystalloid URINE OUTPUT: 300 mL GRAFTS OR IMPLANTS: None. DRAINS: None. FINDINGS: There was a tattoo at the hepatic flexure. Small primary umb ilical defect. INDICATIONS: This is an 81-year-old woman wi th good functional status, who presented to my clinic after a diagnostic colonoscopy for anemia revealed a hepatic flexure mass with ulcerations. This was biosped and proven to be adenocarcinom. She was seen by GI and referred to me for surgical evaluation. Staging CT chest, abdomen, and pelvis were negative for metastatic disease. CEA level was elevated. She re ceived medical clearance prior to surger y. I had a long discussion with the patient and her family regarding the standard of care for patients with ulcerative colitis and colon carcinoma. The standard i s to have a total colectomy. The paitent did not want this. I advised her that she is at increased risk for another malignancy in her colon, now that she has already had one. Treatment plans, risks, be nefits, complications, and alternatives to a laparoscopic right colectomy were discussed in detail with the patient. Informed consent was obtained. PROCEDURE IN DETAIL: The patient was brought to the operating room and placed supine on the operating room table. After the induction of general endotracheal anesthesia, a Flower catheter was placed, perioperative antibioti cs, and DVT prophylaxis were administere d. The patient was prepped and draped in standard sterile manner. Of note, quadratus lumborum block with catheters were performed by anesthesia in the pre-opera tive holding area. The patient was also placed on the enhanced recovery after surgery protocol. A 5 mm FIOS port was placed in the left upper quadrant using the Optiview technique. The underlying viscera was visualized and was uninjured. Pneumoperitoneum was established. Suprapubic, left lower quadrant, and left mid abdomen 5 mm troc ars were placed under direct visualization. Another 12 mm port was placed at the umbilicus at her hernia site. The cecum was retracted laterally which exposed th e ileocolic vessel. The peritoneum of t he mesentery was incised with cautery and the ascending mesocolon was dissected from the retroperitoneum. This was carried laterally and cephalad exposing the duo denum, which was maintained in the retro peritoneum and cleared from the ileocolic vascular pedicle. Once the pedicle was sufficiently mobilized, it was ligated and divided with a 60 mm estrada load on the laparoscopic Endo-OSMAN stapler. The ileo colic vascular pedicle was examined and deemed to be hemostatic. Once the entire ascending mesocolon and proximal transverse colon was fully mobilized, the later al peritoneal attachments were divided, as was the hepatocolic ligament which allowed full mobilization of the specimen. The small bowel mesentery and trasverse colon mesentery were taken to the pre-selected transection sites with the LigaSure Hook. A 3 cm supraumbilical incision was made. The umbilical hernia sac was dissected free to exposed normal fascia. A small Ryan wound protector was placed in the incision. The specimen was exteriorized, the terminal ileum (60 mm estrada load) and mid transverse colon (60 mm purple load), were divided with the laparoscopic Endo-OSMAN stapler. The specimen was passed off and sent to pathology. The proximal sma ll bowel and the distal transverse colon staple lines showed excellent vascular perfusion. A drvu-ty-sury functional end-to-end ileocolostomy was created with a 60 mm purple load using the laparoscopic Endo-OSMAN stapler. The common channel e nterotomy was closed with running 3-0 Vicryl sutures x 2 and interrupted 3-0 Vicryl seromuscular stitches. There was no tension on the anastomosis. The anastomo sis was inspected and there were 2 finge rbreadths worth of space at the meghana- ileocolostomy. The anastomosis was reduced and inspection all mesenteric edges and vascular pedicles showed good hemostasis. A 3-0 Vicryl crotch stitch was placed. T he anastomosis and the ileocolic pedicle were then covered with Evicel hemostatic agent. The Ryan wound protector was removed a nd a sheet of Seprafilm was placed in the subfascial location. The midline fascia was closed with #1 PDS x 2. The abdomen was re-insufflated and the small bowel m esentery was placed in its proper orient ation. The omentum was placed on top of the anastomosis. Hemostasis was re-checked and deemed to be adequate. The skin incisions were irrigated and then closed w ith 4-0 Monocryl. Dermabond was applied to all incisions. This concluded the procedure. The patient was extubated and transferred to the PACU in stable condition. At the end of procedure, all sponge , needle, lap, and instrument counts wer e reported correct x 2. I was present and scrubbed for the entire operation. SPECIMENS REMOVED: 1. Right colon and terminal ileum. 2. Additional ileum. Plan of Care No Data Provided for This Section Social History Social History Date Source Social History TypeResponse 11/01/2018 [facility] Substance Abuse Use: None. Alcohol Never Smoking Status Never smoker; Exposure to Tobacco Smoke None; Cigarette Smoking Last 365 Days No; Reg Smoking Cessation Counseling No entered on: 11/01/18 Social History TypeResponse 11/01/2018 [facility] [place] Substance Abuse Use: None. Alcohol Never Smoking Status Never smoker; Exposure to Tobacco Smoke None; Cigarette Smoking Last 365 Days No; Reg Smoking Cessation Counseling No entered on: 11/01/18 Social History TypeResponse 05/03/2018 [place] Substance Abuse Use: None. Alcohol Never Smoking Status Never smoker; Exposure to Tobacco Smoke None; Cigarette Smoking Last 365 Days No; Reg Smoking Cessation Counseling No entered on: 05/03/18 Social History TypeResponse 02/09/2017 [facility] Substance Abuse Use: None. Alcohol Never Smoking Status Never smoker; Previous treatment: None; Ready to change: No; Concerns about tobacco use in household: No; Exposure to Tobacco Smoke None; Cigarette Smoking Last 365 Days No; Reg Smoking Cessation Counseling No entered on: 04/30/17 Family History No Data Provided for This Section Advance Directives No Data Provided for This Section Functional Status No Data Provided for This Section
--- OUTSIDE RECORDS SUMMARY | 2020-05-10 10:45 | XMS REPORT | Continuity of Care Document ---
:1935 Author Organization [facility] t Address [address] [place] [place] [address] Care Team Providers Name Role Phone Mel HOFFMAN, [place] Primary Care Physician Cheyenne HOFFMAN RAxel Attending Clinician [facility] Attending Clinician Unavailable Kaykay HOFFMAN Attending Clinician Nay Read Attending Clinician Josh Attending Clinician Bhupendra Samuel Attending Clinician Bhupendra Samuel Admitting Clinician Payers Payer Name Policy Type Policy Effective Date Expiration Date Sour ce Number AETNA MEDICAREAETNA [id number] 2013 [place] MEDICARE HMO/PPO 00:00:00 Elvin jiménez [id number] -PresentHMO Problems Condition Condition Condition Status Onset Resolution Last Treating Co mments Source Name Details Category Date Date Treatment Clinician Date Malignant Malignant Problem Active [place] tumor of Tumor of 1- [facility] colon [facility] Disorder Disorder Problem Active [place] of thyroid of Thyroid 06-28 da gland Gland [facility]:00: [facility] Anxiety Anxiety Problem Active 2019- [place] [facility] Hypertensi Hypertensi Problem Active 2019- M [place] ve ve 06-28 da disorder Disorder [facility]:00: [facility] 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 [facility]:00: [facility] 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 Meth fernanda valve valve 00:00: st stenosis stenosis 00 Aortic Aortic Disease Active Sr valve valve 11-29 Methodi disease disease 00:00: st 00 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 [place] due to due to 05-31 Methodi chemothera chemothera 00:00: st peutic peutic 00 drug drug Imbalance Imbalance Disease Active 2017-05 Michaela ston 05-31 Methodi 00:00: st 00 C18.3 - Diagnosis Active 2017-12-06 Me moria MALIGNANT 10-29 15:31:00 l NEOPLASM C18.3 - 00:01: Clari nn OF HEPATIC MALIGNANT 00 NEOPLASM OF HEPATIC Active 10/29/2017 [facility] [place], OPID [place] Localized Localized Disease Active Michaela ston edema edema 5-08 Methodi 00:00: st 00 Paresthesi Paresthesi Disease Active [place] a a 5-08 Methodi 00:00: st 00 Bilateral Bilateral Disease Active Michaela ston carotid carotid 2- Methodi bruits bruits 00:00: st 00 Malignant Malignant Disease Active 2016-05 Michaela ston neoplasm neoplasm 2-05 Method i of of 00:00: st ascending ascending 00 colon colon 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 7-26 [facility] disease disease 00:00: st 00 Encounter Encounter Disease Active Michaela ston for for 7-20 Method[facility] long-term long-term 00:00: st (current) (current) 00 use of use of other other medication medication s s 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 11-25 Me thodi s s 00:00: st 00 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 00:00: st 00 Hyperchole Hyperchole Disease Active H maggy steremia steremia 11-25 Method i 00:00: st 00 Hypertensi Hypertensi Disease Active 2016-0 [place] on on 11-25 Methodi 00:00: st 00 Malignant Problem 2018-10-26 Me moria neoplasm 14:08:18 l of cecum Price Malignant neoplasm of cecum 10/26/2018 [place] Personal Problem 2018-10-26 Mem oria history of 14:08:18 l antineopla Personal He rmann stic history of chemothera antineopla py stic chemothera py 10/26/2018 [place] Ulcerative Problem 2018-10-26 M emoria (chronic) 14:08:18 l pancolitis Osmar n without Ulcerative complicati (chronic) ons pancolitis without complicati ons 10/26/2018 [place] First Problem 2018-10-26 Memor ia degree 14:08:18 l hemorrhoid First Clari nn s degree hemorrhoid s 10/26/2018 [place] Other long Problem 2018-10-26 M emoria term 14:08:18 l (current) Other Osmar n drug custodial therapy (current) drug therapy 10/26/2018 [place] Anxiety Problem 2018-10-26 Kelvin audrey disorder, 14:08:18 l unspecifie Anxiety Her nava d disorder, unspecifie d 10/26/2018 [place] 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:18 l disorder, Major Osmar n single depressive episode, disorder, unspecifie single d episode, unspecifie d 10/26/2018 [place] 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, 14:08:18 l unspecifie Osmar n d Polyneurop athy, unspecifie d 10/26/2018 [place] Family Problem 2018-10-26 Memor ia history of 14:08:18 l malignant Family Clari nn neoplasm history of of malignant digestive neoplasm organs of digestive organs 10/26/2018 [place] Family Problem 2018-10-26 Memor ia history of 14:08:18 l stroke Family Price history of stroke 10/26/2018 [place] Family Problem 2018-10-26 Memor ia history of 14:08:18 l asthma and Family Herm mali other history of chronic asthma and lower other respirator chronic y diseases lower respirator y diseases 10/26/2018 [place] Family Problem 2018-10-26 Memor ia history of 14:08:18 l malignant Family Clari nn neoplasm history of of bladder malignant neoplasm of bladder 10/26/2018 [place] Family Problem 2018-10-26 Memor ia history of 14:08:18 l diabetes Family Osmar n mellitus history of diabetes mellitus 10/26/2018 [place] Allergy Problem 2018-10-26 Kelvin audrey status to 14:08:18 l penicillin Allergy Her nava status to penicillin 10/26/2018 [place] Other Problem 2018-12-06 Memor ia nonspecifi 11:19:20 l c abnormal Other Clari nn finding of nonspecifi lung field c abnormal finding of lung field 12/06/2018 DONNIE Miller Leiomyoma Problem 2018-12-06 Me moria of uterus, 11:19:20 l unspecifie Osmar n d Leiomyoma of uterus, unspecifie d 12/06/2018 DONNIE Miller Atheroscle Problem 2018-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 M emoria rosis of 11:19:20 l aorta Price Atheroscle rosis of aorta 12/06/2018 DONNIE Miller Atheroscle Problem 2018-12-06 M emoria rotic 11:19:20 l heart [place] 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 12/06/2018 DONNIE Miller Atelectasi Problem 2018-12-06 M emoria s 11:19:20 l [place] Atelectasi s 12/06/2018 DONNIE Miller Liver Problem 2018-12-06 Memor ia disease, 11:19:20 l unspecifie Liver Clari nn d disease, unspecifie d 12/06/2018 [facility] Diverticul Problem 2018-12-06 M emoria osis of 11:19:20 l large [place] intestine Diverticul without osis of perforatio large n or intestine abscess without without perforatio bleeding n or abscess without bleeding 12/06/2018 KRISTINJaime KiranM H [place] Localized Problem 2018-12-06 Me moria enlarged 11:19:20 l lymph Price nodes Localized enlarged lymph nodes 12/06/2018 DONNIE Miller Acquired Problem 2018-12-06 Mem oria absence of 11:19:20 l other Acquired Osmar n specified absence of parts of other digestive specified tract parts of digestive tract 12/06/2018 Betty Card Essential Problem 2018-12-06 Me moria (primary) 11:19:20 l hypertensi Osmar n on Essential (primary) hypertensi on 12/06/2018 Betty Alejo Hyperlipid Problem 2018-12-06 M emoria emia, 11:19:20 l unspecifie Osmar n d Hyperlipid emia, unspecifie d 12/06/2018 Betty Card Hypothyroi Problem 2018-12-06 M emoria dism, 11:19:20 l unspecifie Osmar n d Hypothyroi dism, unspecifie d 12/06/2018 Betty Card Rheumatoid Problem 2018-12-06 M emoria arthritis, 11:19:20 l unspecifie Osmar n d Rheumatoid arthritis, unspecifie d 12/06/2018 Betty Card Iron Problem 2018-12-06 Memor ia deficiency 11:19:20 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 [facility], Betty Card, EDDC Hyperlipid Problem Active 2018-12-06 M emoria emia 11:19:20 l (disorder) Osmar n Hyperlipid emia (disorder) Active Problem 12/06/2018 Data migrated from [employer] on 10/27/14. [facility], Betty Card, EDDC Hypothyroi Problem Active 2018-12-06 M emoria dism 11:19:20 l (disorder) Osmar n Hypothyroi dism (disorder) Active Problem 12/06/2018 [facility], DONNIE Kiran,Betty Cruz, EDDC Rheumatoid Problem Active 2018-12-06 M emoria arthritis 11:19:20 l (disorder) Osmar n Rheumatoid arthritis (disorder) Active Problem 12/06/2018 Data migrated from [employer] on 10/27/14. [facility], DONNIE KiranBetty Tanika Cruz, EDMI Ulcerative Problem Active 2018-12-06 M emoria colitis 11:19:20 l (disorder) Osmar n Ulcerative colitis (disorder) Active Problem 12/06/2018 Data migrated from [employer] on 10/27/14. [facility], DONNIE Kiran,Betty Tanika Cruz, EDDC Increased Problem Active 2017-09-17 Me moria frequency 03:16:29 l of [place] urination Increased (finding) frequency of urination (finding) Active Problem 09/17/2017 DONNIE KirnaBetty [place], EDMI Mass of Problem Active 2017-09-17 Kelvin audrey body 03:16:29 l structure Mass of Herm mali (finding) body structure (finding) Active Problem 09/17/2017 of abdomen DONNIE KiranBetty Tanika Cruz, EDMI History of Problem Active 2018-12-06 M emoria malignant 11:19:20 l neoplasm History Clari nn of colon of (situation malignant ) neoplasm of colon (situation ) Active Problem 12/06/2018 [facility], DONNIE Kiran,Betty Tanika Cruz Malignant Problem 2017-052018-12-06 2018-12-06 Memoria neoplasm - 11:19:20 11:19:20 l of hepatic 04:02: Osmar n flexure Malignant 31 neoplasm of hepatic flexure 05/25/2018 12/06/2018 DONNIE Kiran Encounter Problem 2017-052018-10-26 2018-10-26 Memoria for - 14:08:18 14:08:18 l adjustment 05:10: Osmar n and Encounter 23 management for of adjustment vascular and access management device of vascular access device 04/14/2018 10/26/2018 [place] Allergies, Adverse Reactions, Alerts Allergy Allergy Status Severity Reaction(s) Onset Inactive Treating Comm ents Source Name Type Date Date Clinician Dye Propensi Active Probable [place] ty to 11-25 contrast Methodi adverse 00:00: dye st reaction 00 allergy s to drug Penicill Propensi Active [place] ins ty to 11-25 Methodi adverse 00:00: st reaction 00 s to drug PENICILL Allergy Active [place] INS to da substanc [facility] penicill penicill Active Memori a ins<sup> ins<sup> l 1</sup> 1</sup> Price Social History Social Habit Start Date Stop Date Quantity Comments Source Sex Assigned At [facility] ethodist Tobacco use and 2019-06-27 2019-06-27 Never used [facility] ethodist exposure 00:00:00 00:00:00 Alcohol intake 2019-06-27 2019-06-27 Current [facility] thodist 00:00:00 00:00:00 non-drinker of alcohol (finding) Social History 2017-02-09 2017-02-09 [facility] 20:13:48 20:13:48 Smoking Status Start Date Stop Date Source Never smoker Sigel Methodis t Medications Ordered Filled Start Stop Current Ordering Indication Dosage Frequency Signature Comments Components Source Medication Medication Date Date Medication? Clinician (SIG) Name Name ezetimibe 2019-05 Yes Hypercholes TAKE 1 [place] (ZETIA) 10 06-24 teremia TABLET BY M ethodi mg tablet 00:00: MOUTH st 00 EVERY DAY metoprolol metoprolol No metoprolol [place] tartrate 50 tartrate 50 8-06 tartrate da mg tablet mg tablet 00:00: 50 mg Ep iscop 00 tablet [facility] pantoprazol Yes 20mg QD Take 1 [place] 3-20 tablet (20 Methodi (PROTONIX) 00:00: mg total) st 20 MG EC 00 by mouth tablet daily. ALPRAZolam Yes TAKE 1 [place] (XANAX) 0.5 06-27 TABLET BY Met hodi MG tablet 10:51: MOUTH st 21 TWICE A DAY NEEDED FOR ANXIETY fluvastatin Yes fluvastati Sigel XL (LESCOL 06-27 n ER 80 mg Met hodi XL) 80 mg 10:51: tablet,ext st 24 hr 21 ended tablet release 24 hr aspirin 2019- Yes Take 1 Sigel (ECOTRIN) 06-27 tablet(s) Metho di 81 MG 10:51: every day st enteric 21 by oral coated route. tablet levothyroxi Yes levothyrox Sigel ne 06-27 ine 75 mcg Methodi (SYNTHROID, 10:51: tablet st LEVOTHROID) 21 75 MCG tablet cholecalcif 2020-0 Yes 1000U QD Take 1,000 Sigel nikko, - Units by Methodi vitamin D3, 10:51: mouth st (VITAMIN 21 daily. D3) 1,000 unit tablet multivitami 2020-0 Yes 1{tbl} Q.5D Take 1 Ho delmy n with -28 tablet by Methodi minerals 10:51: mouth 2 st tablet 21 (two) times a day. meclizine 2020-0 Yes 25mg Q.[id number] Take 25 mg Sr (ANTIVERT) 06-27 [id number] by mouth 3 Methodi 25 mg 10:51: 3D (three) st tablet 21 times a day as needed for dizziness. balsalazide 2020-0 Yes 2250mg Q.[id number] Take 2,250 Sig[place] (COLAZAL) 06-27 [id number] mg by Met hodi 750 mg 10:51: 3D mouth 3 st capsule 21 (three) times a day. pyridoxine, 2019-0 Yes 100mg Q.[id number] Take 100 Sigel vitamin B6, 06-27 [id number] mg by Betty sosa (B-6) 100 10:51: 3D mouth 3 st MG tablet 21 (three) times a day. Ca 2019-2019- No 300mg Q.5D Take 300 Sigel carb-D3-mag 06-27 mg by Method i ox-copyright expert-lilia 10:49: 00:[address] -Zn 46 :00 (two) (CALTRATE + times a D3 PLUS day. MINERALS) 300 mg-800 unit -25 mg-0.5 mg tablet quinapril Yes Essential 20mg Q.5D Take 1 [place] (ACCUPRIL) 06-27 hypertensio tablet (20 Methodi 20 MG 00:00: n mg total) st tablet 00 by mouth 2 (two) times a day. metoprolol 2020- No Essential 50mg Q.5D Take 1 Sig[place] tartrate 06-27 hypertensio tablet (50 Methodi (LOPRESSOR) 00:00: 23:59 n mg total) st 50 mg 00 :00 by mouth 2 tablet (two) times a day. ezetimibe 2020- No Hypercholes 10mg QD Take 1 Sigel (ZETIA) 10 06-27 11-25 teremia tablet (10 Methodi mg tablet 00:00: 00:00 mg total) st 00 :00 by mouth daily. omega-3s-dh 2018-05- No 1200mg Q.5D Take 1,200 Sr a-epa-fish - 12-11 mg by Methodi oil (FISH 11:18: 00:[address] OIL) 26 :00 (two) 720-1,200 times a mg capsule day. coenzyme 2018-05- No 200mg Q.5D Take 200 Michaela ston Q10 100 mg - 12-11 mg by Methodi capsule 11:17: 00:[address] 06 :00 (two) times a day. pantoprazol 2018-05- No 20mg QD Take 1 Michaela ston e 07-11 03-20 tablet (20 Methodi (PROTONIX) 00:00: 00:00 mg total) s t 20 MG EC 00 :00 by mouth tablet daily. gabapentin 2018-05- No 300mg Q.5D Take 1 Michaela ston (NEURONTIN) 07-11 capsule Meth fernanda 300 mg 00:00: 00:00 ([address] capsule 00 :00 total) by mouth 2 (two) times a day. pantoprazol 2018- No TAKE 1 Michaela ston e 6-17 12-11 TABLET BY Methodi (PROTONIX) 00:00: 00:[address] 20 MG EC 00 :00 EVERY DAY tablet balsalazide 2018- Yes = 3 cap, Me moria 750 mg oral 6-05 PO, TID, # l capsule 21:39: 810 cap, 1 Herm mali 54 Refill(s), Pharmacy: [facility] #[id number] 0.4 ML 2019- Yes 40 mg, Memoria adalimumab 6-05 SUB-Q, l 100 MG/ML 21:39: Q14D, # 2 Her nava Pen 00 pen(s), 5 Injector Refill(s), [Humira] Pharmacy: [facility] #[id number] quinapril 2019- Yes 20 mg = 1 Mem oria 20 mg oral 6-04 tab, PO, l tablet 18:11: Daily, # [place] 00 30 tab, 0 Refill(s) Humira 2018- No 40 mg, Memoria 6-04 SUB-Q, l 18:11: ONCE, 0 Price 00 Refill(s) ezetimibe 2020- No Hypercholes TAKE 1 Sig[place] (ZETIA) 10 07-08 teremia TABLET BY Methodi mg tablet 00:00: 00:[address] 00 :00 EVERY DAY metoprolol 2019- No Essential 50mg Q.5D Take 1 [place] tartrate 06-28 hypertensio tablet (50 Methodi (LOPRESSOR) 00:00: 00:00 n mg total) st 50 mg 00 :00 by mouth 2 tablet (two) times a day. quinapril 2019- No Essential 20mg Q.5D Take 1 Sig[place] (ACCUPRIL) 06-28 hypertensio tablet (20 Methodi 20 MG 00:00: 00:00 n mg total) st tablet 00 :00 by mouth 2 (two) times a day. am[facility]OD[facility]ine [facility]T BY Metho di 10 mg 00:00: MOUTH st tablet 00 NEEDED IF BLOOD PRESSURE IS GREATER THAN 180 gabapentin 2017-05 2019- No 200mg Q.[id number] Take 2 Sigel (NEURONTIN) 07-26 [id number] capsules Methodi 100 mg 00:00: 00:00 3D ([address] capsule 00 :00 total) by mouth 3 (three) times a day. balsalazide 2017-05 No = 3 cap, Me moria 750 mg oral 2-04 PO, TID, # l capsule 23:12: 810 cap, 1 Herm mali 29 Refill(s), Pharmacy: [id number] Labetalol 2017-05 No 5 mg, 1 Memor ia 06-08 mL, Route: l 17:18: IVP, Drug Price 00 form: INJ, ONCE, Dosing Weight 58.636, kg, PRN Hypertensi on, Start date: 04/08/18 11:18:00 PARTS PROCESSOR Labetalol 2017-05 No 5 mg, Memoria 06-08 Route: l 16:59: IVP, Drug [place] 00 form: INJ, ONCE, Dosing Weight 58.636, kg, Start date: 04/08/18 10:59:00 PARTS PROCESSOR, Stop date: 04/08/18 10:59:00 PARTS PROCESSOR Metoprolol 2017-05 No 5 mg, Memori a 06-08 Route: l 16:23: IVP, Drug form: INJ, ONCE, Dosing Weight 58.636, kg, Start date: 04/08/18 10:23:00 PARTS PROCESSOR, Stop date: 04/08/18 10:23:00 PARTS PROCESSOR Acetazolami 2017-05 No Notes: Kelvin audrey de 06-08 (Same as: l 16:17: Diamox) Ondansetron 2017-05 No Notes: Kelvin audrey 06-08 (Same as: l 16:17: Zofran) MEDICATION WASTE Product Size: 4 mg Product Wasted: ___ mg Oxycodone 2017-05 No Notes: Memori a 06-08 (Same as: l 16:17: Roxicodone ) Naloxone 2017-05 No Notes: Memoria 06-08 Same as l 16:17: Narcan Hydromorpho 2017-05 No Notes: Kelvin audrey ne 06-08 Same as: l 16:17: Dilaudid Flumazenil 2017-05 No Notes: Memor ia 06-08 (Same as: l 16:17: Romazicon) ondansetron 2017-05 No Route: IV, Memoria (ANES) 06-08 Drug form: l 15:47: INJ, ONCE, Stop date: 04/08/18 9:47:00 PARTS PROCESSOR ceFAZolin 2017-05 No Route: IV, Me moria (ANES) 06-08 Drug form: l 15:40: INJ, ONCE, Stop date: 04/08/18 9:40:00 PARTS PROCESSOR dexamethaso 2017-05 No Route: IV, Memoria ne (ANES) 06-08 Drug form: l 15:20: INJ, ONCE, Stop date: 04/08/18 9:20:00 PARTS PROCESSOR ePHEDrine 2017-05 No Route: IV, Me moria (ANES) 06-08 Drug form: l 15:05: INJ, ONCE, Stop date: 04/08/18 9:05:00 PARTS PROCESSOR lidocaine 2017-05 No Route: IV, Me moria (ANES) 06-08 Drug form: l 15:00: INJ, ONCE, Stop date: 04/08/18 9:00:00 PARTS PROCESSOR fentaNYL 2017-05 No Route: IV, Mem oria (ANES) 06-08 Drug form: l 15:00: INJ, ONCE, [place] 00 Stop date: 04/08/18 9:00:00 PARTS PROCESSOR propofol 2017-05 No Route: IV, Mem oria (ANES) 06-08 Drug form: l 15:00: INJ, ONCE, Stop date: 04/08/18 9:00:00 PARTS PROCESSOR Lactated 2017-05 No Route: IV, Mem oria Ringers 06-08 Total l Injection 14:15: Volume: Clari nn IV (ANES) 00 1,000, 1000 mL Start date: 04/08/18 8:15:00 PARTS PROCESSOR, Stop date: 04/08/18 9:15:00 PARTS PROCESSOR Famotidine 2017-05 No Notes: Memor ia 06-08 (Same as: l 13:00: Pepcid) Lidocaine 2017-05 No Notes: Memori a Hydrochlori 06-08 Preservati l de 10 MG/ML 13:00: ve free. He rmann Injectable (Same as: Solution Xylocaine MPF) Hydralazine 2017-05 No Notes: Kelvin audrey 06-08 (Same as: l 13:00: Apresoline ) May interfere w/enteral feedings. Take With Food Celebrex 2017-05 No Notes: Memoria 06-08 NSAID. l 12:22: Please check indication . Not for seizure. (Same As: CeleBREX) Tylenol 2017-05 No Notes: Do Memor ia 06-08 not exceed l 12:22: 4 gm/day. Price 00 (Same as: Tylenol) Calcium 2017-05 No 1,000 mL, Memor ia Chloride 06-08 Rate: 25 l 0.0014 12:22: ml/hr, [place] MEQ/ML / 00 Infuse Potassium over: 40 Chloride hr, Route: 0.004 IV, Dosing MEQ/ML / Weight Sodium 58.636 kg, Chloride Total 0.103 Volume: MEQ/ML / 1,000, Sodium Start Lactate date: 0.028 11/09/18 MEQ/ML 6:22:00 Injectable PARTS PROCESSOR, Solution Duration: 30 day, Stop date: 05/08/18 6:21:00 PARTS PROCESSOR, 1.63, m2 Lactated 2017-05 No 1,000 mL, Kelvin audrey Ringers 06-08 Rate: 125 l Injection 11:00: ml/hr, Osmar n IV 1,000 mL 00 Infuse over: 8 hr, Route: IV, Dosing Weight 58.636 kg, Total Volume: 1,000, Start date: 04/08/18 5:00:00 PARTS PROCESSOR, Duration: 30 day, Stop date: 05/08/18 4:59:00 PARTS PROCESSOR, 1.63, m2 gabapentin 2017-05 Yes 100 mg = 1 M emoria 100 MG Oral 05-31 cap, PO, l Capsule 18:12: TID, 0 [place] 00 Refill(s) metoprolol 2017-05 Yes BID, 0 Memor ia tartrate 05-31 Refill(s) l 18:11: [place] 00 DULoxetine 2017-05 Yes 20 mg = 1 Me moria 20 mg oral 05-31 cap, PO, l delayed 18:11: Daily, 0 Osmar n release 00 Refill(s) capsule Citric Acid 2017-05 No See Memori a 80 MG/ML / 029 Instructio l Magnesium 14:56: ns, 1 pkt Her nava Oxide 23.3 00 PO at 6pm MG/ML / and at picosulfate 2am, # 1 sodium box, 0 0.0667 Refill(s), MG/ML Oral Pharmacy: Solution [facility] #[id number] DULoxetine 2017-05 2019- No QD Take by Michaela goldstein (CYMBALTA) 0- 12-11 mouth Methodi 30 MG 00:00: 00:[address] capsule 00 :00 polyethylen 2017-05 No See Memori a e glycol 0-24 Instructio l 3350 with 22:27: ns, as Osmar n electrolyte 00 directed, s oral # 4,000 powder for mL, 0 solution Refill(s), Pharmacy: [facility] #[id number], this is the generic of Golytely being used as a bowel prep, not Miralax balsalazide Yes 2,250 mg = Memoria 750 mg oral 08 3 cap, PO, l capsule 20:36: TID, # 270 Herm mali 24 cap, 5 Refill(s), Pharmacy: [facility] #[id number] Hydralazine 2016-05 No 10 mg, Kelvin audrey 2-04 Route: IV, l 21:17: ONCE, Dosing Weight 68.182, kg, Start date: 05/03/17 15:17:00 PARTS PROCESSOR, Stop date: 05/03/17 15:17:00 PARTS PROCESSOR ondansetron 2016-05 No Route: IV, Memoria (ANES) 2- Drug form: l 20:10: INJ, ONCE, Stop date: 05/03/17 14:10:00 PARTS PROCESSOR Ondansetron 2016-05 No Notes: Kelvin audrey 2-04 (Same as: l 19:59: Zofran) MEDICATION WASTE Product Size: 4 mg Product Wasted: ___ mg Hydromorpho 2016-05 No Notes: Kelvin audrey ne 2-04 Same as l 19:59: Dilaudid Oxycodone 2016-05 No Notes: Memori a 2-04 (Same as: l 19:59: Roxicodone ) Flumazenil 2016-05 No Notes: Memor ia 2-04 (Same as: l 19:59: Romazicon) Fentanyl 2016-05 No Notes: Memoria 2-04 (Same as: l 19:59: Sublimaze) Preservat karthik free. Naloxone 2016-05 No Notes: Memoria 2-04 Same as l 19:59: Narcan fentaNYL 2016-05 No Route: IV, Mem oria (ANES) 2-04 Drug form: l 19:21: INJ, ONCE, Stop date: 05/03/17 13:21:00 PARTS PROCESSOR propofol 2016-05 No Route: IV, Mem oria (ANES) 2-04 Drug form: l 19:21: INJ, ONCE, Stop date: 05/03/17 13:21:00 PARTS PROCESSOR lidocaine 2016-05 No Route: IV, Me moria (ANES) 2- Drug form: l 19:21: INJ, ONCE, Stop date: 05/03/17 13:21:00 PARTS PROCESSOR vancomycin 2016-05 No Route: IV, M emoria (ANES) 1000 2-04 Drug form: l mg 18:38: INJ, Start Ray[place] 00 date: 05/03/17 12:38:00 PARTS PROCESSOR, Stop date: 05/03/17 13:38:00 PARTS PROCESSOR Lactated 2016-05 No Route: IV, Mem oria Ringers 2-04 Total l Injection 18:20: Volume: Clari nn IV (ANES) 00 500, Start 500 mL date: 05/03/17 12:20:00 PARTS PROCESSOR, Stop date: 05/03/17 13:20:00 PARTS PROCESSOR Lactated 2016-05 No 500 mL, Memori a Ringers IV 2-04 Rate: 25 l 500 mL 18:08: ml/hr, Price 00 Infuse over: 20 hr, Route: IV, Dosing Weight 68.182 kg, Total Volume: 500, Start date: 05/03/17 12:08:00 PARTS PROCESSOR, Duration: 30 day, Stop date: 06/02/17 12:07:00 PARTS PROCESSOR, 1.74, m2 Ancef 2016-05 No 2 gm, Memoria 2-04 Route: IV, l 18:05: PRE OP, Price 00 Dosing Weight 68.182, kg, Priority: NOW, Start date: 05/03/17 12:05:00 PARTS PROCESSOR, Duration: 30 day, Stop date: 06/02/17 12:04:00 PARTS PROCESSOR, ABX Indication : Surgical Prophylaxi s Lidocaine 2016-05 No Notes: Memori a Hydrochlori 2-04 Preservati l de 10 MG/ML 18:00: ve free. He rmann Injectable 00 (Same as: Solution Xylocaine MPF) Calcium 2016-05 No 1,000 mL, Memor ia Chloride 2-04 Rate: 25 l 0.0014 17:05: ml/hr, Price MEQ/ML / 00 Infuse Potassium over: 40 Chloride hr, Route: 0.004 IV, Dosing MEQ/ML / Weight Sodium 68.636 kg, Chloride Total 0.103 Volume: MEQ/ML / 1,000, Sodium Start Lactate date: 0.028 05/03/17 MEQ/ML 11:05:00 Injectable PARTS PROCESSOR, Solution Duration: 30 day, Stop date: 06/02/17 11:04:00 PARTS PROCESSOR, 1.74, m2 Protonix 2016-05 No Notes: Memoria 1-01 Tablet l 14:00: should not be chewed or crushed. (Same as: Protonix) hydrochloro 2016-05 No 2 tab, Kelvin audrey thiazide-qu 0-31 Route: PO, l inapril 14:00: Drug Form: Herm mali 12.5 mg-10 00 TAB, mg oral Dosing tablet Weight 69.091, kg, Daily, Start date: 03/30/17 9:00:00 CDT, Duration: 30 day, Stop date: 04/28/17 9:00:00 PARTS PROCESSOR Lescol XL 2016-05 No 80 mg, Memori a 0-31 Route: PO, l 14:00: Drug form: Price 00 ERTAB, Daily, Dosing Weight 69.091, kg, Start date: 03/30/17 9:00:00 CDT, Duration: 30 day, Stop date: 04/28/17 9:00:00 PARTS PROCESSOR Zetia 2016-05 No Notes: Memoria 0-31 (Same as: l 14:00: Zetia) amLODIPine 2016-05 No Notes: Memor ia 0-31 (Same as: l 14:00: Norvasc) Protonix 2016-05 No Notes: For Mem oria 0-31 IV push l 14:00: reconstitu te with 10 ml 0.9% sodium chloride and push over 2 minutes. (Same as: Protonix) enoxaparin 2016-05 No Notes: Memor ia 0-31 (Same as: l 14:00: Lovenox) Quinapril-H 2016-05 No Quinapril- Memoria CTZ 20-12.5 0-31 HCTZ l mg tablet 14:00: 20-12.5 mg He rm tablet, 1 tablet, Drug form: MISC, Route: PO, Daily, 03/30/17 9:00:00 CDT, Duration: 30 day, Stop date: 04/28/17 9:00:00 PARTS PROCESSOR hydrALAZINE 2016-05 No Notes: Kelvin audrey 0-31 (Same as: l 11:41: Apresoline ) Push over 5 minutes levothyroxi 2016-05 No Notes: Kelvin audrey ne 0-31 Take 1 l 11:30: hour Rayle 00 before or 2 hours after meal; Enteral feeds may interefere with the absorption of this medication .(Same as:Levothr oid, Synthroid) acetaminoph 2016-05 No Notes: Max Memoria en 0-31 acetaminop l 07:30: hen 4000 Price 00 mg/day (4 gm/day). (Same as: Tylenol Extra Strength) Lescol Xl 2016-05 No Lescol Xl Mem oria 80 mg 0-31 80 mg l (Fluvastati 02:00: (Fluvastat Prcie n ER 80 mg) 00 in ER 80 mg), 1 tablet, Drug form: MISC, Route: PO, Bedtime, 03/29/17 21:00:00 CDT, Duration: 30 day, Stop date: 04/27/17 21:00:00 PARTS PROCESSOR Entereg 2016-05 No Notes: Memoria 0-31 Same as: l 02:00: Entereg Price 00 Maximum of 15 doses Alert Restricted medication Alvimopan (Entergen) order form must be completed prior to dispensing . Ofirmev 2016-05 No Notes: Memoria 0-30 Infuse l 23:00: over 15 Rayle 00 minutes Do not exceed 4gm/day of acetaminop hen MEDICATION WASTE Product Size: 1000 mg Product Wasted: ___ mg acetaminoph 2016-05 No Notes: Kelvin audrey en 0-30 Infuse l 22:00: over 15 Ray[place] 00 minutes Do not exceed 4gm/day of acetaminop hen MEDICATION WASTE Product Size: 1000 mg Product Wasted: ___ mg nalbuphine 2016-05 No Notes: Memor ia 0-30 (Same As: l 21:02: Nubain) diphenhydrA 2016-05 No Notes: Kelvin audrey MINE 0-30 (Same as: l 21:02: Benadryl) ondansetron 2016-05 No 4 mg, Memor ia 0-30 Route: l 21:02: IVP, Q8H, Rayle 00 Dosing Weight 68.182, kg, PRN Nausea & Vomiting, Start date: 03/29/17 16:02:00 CDT, Duration: 30 day, Stop date: 04/28/17 16:01:00 PARTS PROCESSOR morphine 2016-05 No Notes: Memoria Sulfate 0-30 (Same l 21:02: as:MORPhin e Sulfate) gabapentin 2016-05 No Notes: Memor ia 100 mg oral 0-30 (Same as: l capsule 21:00: Neurontin) Herm metroNIDAZO 2016-05 No Notes: Kelvin audrey LE (SCIP) 0-30 (Same as: l 21:00: Flagyl) Avoid alcohol. vancomycin 2016-05 No 2001 mg: Me moria (SCIP) + 0-30 infuse l sodium 21:00: over 2.5 Price chloride 00 hours 0.9% INJ 250 mL MEDICATION WASTE Product Size: 1000 mg Product Wasted: ___ mg methocarbam 2016-05 No Notes: Kelvin audrey ol 0-30 (Same l 18:00: as:Robaxin ) D5W 1/2NS + 2016-05 No Notes: Kelvin audrey KCL 20mEq/L 0-30 PREMIX IV l 1000ml 17:39: - Do Not Price (Premix) 00 Alter 1,000 mL WASTE: F/P - Sink; E - Municipal Trash Bin Saline 2016-05 No Notes: Memoria Flush 0.9% 0-30 (Same as: l 17:39: BD Posiflush) ondansetron 2016-05 No Notes: Kelvin audrey 0-30 (Same as: l 17:39: Zofran) MEDICATION WASTE Product Size: 4 mg Product Wasted: ___ mg meclizine 2016-05 No Notes: Memori a 0-30 (Same as: l 17:36: Antivert) Rayle 00 ANES 2016-05 No 2 puff, Memoria albuterol 0-30 Route: l 90 mcg/inh 16:11: INHALER, Her nava inhalation 00 Dosing aerosol Weight 69.091, kg, Q5Min, PRN Wheezing, Start date: 03/29/17 11:11:00 CDT, Duration: 4 doses or times, Stop date: Limited # of times insulin 2016-05 No 6 unit, Memoria lispro 0-30 Route: l 16:11: SUB-Q, Rayle 00 Sliding Scale, Dosing Weight 69.091, kg, PRN Blood Glucose Results, Start date: 03/29/17 11:11:00 CDT, Duration: 30 day, Stop date: 04/28/17 10:10:00 PARTS PROCESSOR ANES 2016-05 No 0.5 mg, Memoria HYDROmorpho 0-30 Route: l ne 16:11: IVP, Price 00 Q5Min, Dosing Weight 69.091, kg, PRN Pain Score 7-10, Start date: 03/29/17 11:11:00 CDT, Duration: 2 doses or times, Stop date: Limited # of times ANES 2016-05 No 50 Memoria fentaNYL 0-30 microgram, l 16:11: Route: Price 00 IVP, Q5Min, Dosing Weight 69.091, kg, PRN Pain Score 7-10, Priority: Routine, Start date: 03/29/17 11:11:00 CDT, Duration: 2 doses or times, Stop date: Limited # of times ANES 2016-05 No 10 mg, Memoria oxyCODONE 0-30 Route: PO, l 16:11: Drug form: Price 00 TAB, Q4H, Dosing Weight 69.091, kg, PRN Pain Score 7-10, Start date: 03/29/17 11:11:00 CDT, Duration: 30 day, Stop date: 04/28/17 11:10:00 PARTS PROCESSOR ANES 2016-05 No 0.2 mg, Memoria flumazenil 0-30 Route: l 16:11: IVP, PRN, [place] 00 Dosing Weight 69.091, kg, PRN Benzodiaze pine Reversal, Initial dose, Start date: 03/29/17 11:11:00 CDT, Duration: 30 day, Stop date: 04/28/17 10:10:00 PARTS PROCESSOR PEARLS 2016-05 No 0.4 mg, Memoria naloxone 0-30 Route: l 16:11: IVP, Price 00 Q2MIN, Dosing Weight 69.091, kg, PRN Narcotic Reversal, Start date: 03/29/17 11:11:00 CDT, Duration: 8 doses or times, Stop date: Limited # of times ANES 2016-05 No 6.25 mg, Memoria promethazin 0-30 Route: l e 16:11: IVPB, [place] 00 ONCE, Dosing Weight 69.091, kg, PRN Nausea & Vomiting, Start date: 03/29/17 11:11:00 CDT [facility] 2016-05 No 12.5 mg, Memoria meperidine 0-30 Route: l 16:11: IVP, [place] 00 Q30Min, Dosing Weight 69.091, kg, PRN Other -See Comment, For shivering, Start date: 03/29/17 11:11:00 CDT, Duration: 2 doses or times, Stop date: Limited # of times [facility] 2016-05 No 4 mg, Memoria ondansetron 0-30 Route: l 16:11: IVP, ONCE, Ray[place] 00 Dosing Weight 69.091, kg, PRN Nausea & Vomiting, Start date: 03/29/17 11:11:00 CDT [facility] 2016-05 No 4 mg, Memoria dexamethaso 0-30 Route: l ne 16:11: IVP, ONCE, Rayle 00 Dosing Weight 69.091, kg, PRN Nausea & Vomiting, Start date: 03/29/17 11:11:00 CDT [facility] 2016-05 No 12.5 mg, Memoria diphenhydrA 0-30 Route: l MINE 16:11: IVP, Drug Price 00 form: INJ, Q6H, Dosing Weight 69.091, kg, PRN Itching, Start date: 03/29/17 11:11:00 CDT, Duration: 30 day, Stop date: 04/28/17 11:10:00 PARTS PROCESSOR [facility] 2016-05 No 1,000 mg, Memoria acetaminoph 0-30 Route: PO, l en 16:11: Drug form: Rayle 00 TAB, ONCE, Dosing Weight 69.091, kg, PRN Pain Score 1-3, Start date: 03/29/17 11:11:00 CDT, Duration: 1 doses or times, Stop date: Limited # of times [facility] 2016-05 No 0.625 mg, Memoria Enalaprilat 0-30 Route: l 16:11: IVP, [place] 00 Q5Min, Dosing Weight 69.091, kg, PRN Elevated BP, Start date: 03/29/17 11:11:00 CDT, Duration: 4 doses or times, Stop date: Limited # of times ANES 2016-05 No 10 mg, Memoria labetalol 0-30 Route: l 16:11: IVP, Ray[place] 00 Q5Min, Dosing Weight 69.091, kg, PRN Elevated BP, Start date: 03/29/17 11:11:00 CDT, Duration: 5 doses or times, Stop date: Limited # of times ropivacaine 2016-05 No Notes: Kelvin audrey 0.2% 200ml 0-30 Same as: l CADD 200 mL 16:10: Naropin Her nava 00 glycopyrrol 2016-05 No Route: IV, Memoria ate (ANES) 0-30 Drug form: l 15:54: INJ, ONCE, Stop date: 03/29/17 10:54:00 CDT neostigmine 2016-05 No Route: IV, Memoria (ANES) 0-30 Drug form: l 15:54: INJ, ONCE, Stop date: 03/29/17 10:54:00 CDT ondansetron 2016-05 No Route: IV, Memoria (ANES) 0-30 Drug form: l 15:49: INJ, ONCE, Stop date: 03/29/17 10:49:00 CDT dexamethaso 2016-05 No Route: IV, Memoria ne (ANES) 0-30 Drug form: l 15:44: INJ, ONCE, Stop date: 03/29/17 10:44:00 CDT phenylephri 2016-05 No Route: IV, Memoria ne (ANES) 0-30 Drug form: l 15:09: INJ, ONCE, Stop date: 03/29/17 10:09:00 CDT ePHEDrine 2016-05 No Route: IV, Me moria (ANES) 0-30 Drug form: l 15:09: INJ, ONCE, Stop date: 03/29/17 10:09:00 CDT fentaNYL 2016-05 No Route: IV, Mem oria (ANES) 0-30 Drug form: l 14:44: INJ, ONCE, Stop date: 03/29/17 9:44:00 CDT midazolam 2016-05 No Route: IV, Me moria (ANES) 0-30 Drug form: l 14:44: SOLN, ONCE, Stop date: 03/29/17 9:44:00 CDT lidocaine 2016-05 No Route: IV, Me moria (ANES) 0-30 Drug form: l 14:39: INJ, ONCE, Stop date: 03/29/17 9:39:00 CDT propofol 2016-05 No Route: IV, Mem oria (ANES) 0-30 Drug form: l 14:39: INJ, ONCE, Stop date: 03/29/17 9:39:00 CDT rocuronium 2016-05 No Route: IV, M emoria (ANES) 0-30 Drug form: l 14:39: INJ, ONCE, Stop date: 03/29/17 9:39:00 CDT vancomycin 2016-05 No Route: IV, Betty emoria (ANES) 0-30 Drug form: l 14:25: INJ, ONCE, Stop date: 03/29/17 9:25:00 CDT metroNIDAZO 2016-05 No Route: IV, Memoria LE (ANES) 0-30 Drug form: l 14:24: INJ, ONCE, Stop date: 03/29/17 9:24:00 CDT LR 1000 mL 2016-05 No Route: IV, Betty emoria INJ (ANES) 0-30 Total l 13:13: Volume: 00 1,000, Start date: 03/29/17 8:13:00 CDT, Stop date: 03/29/17 9:13:00 CDT lidocaine 2016-05 No Notes: Memori a 1% 0-30 Preservati l 12:00: ve free. Price 00 (Same as: Xylocaine MPF) Lactated 2016-05 No 1,000 mL, Kelvin audrey Ringers 0-30 Rate: 25 l 1,000 mL 11:25: ml/hr, Infuse over: 40 hr, Route: IV, Dosing Weight 69.091 kg, Total Volume: 1,000, Start date: 03/29/17 6:25:00 CDT, Duration: 30 day, Stop date: 04/28/17 6:24:00 PARTS PROCESSOR Neurontin 2016-05 No Notes: Memori a 0-30 (Same as: l 11:00: Neurontin) Lovenox 2016-05 No Notes: Memoria 0-30 (Same as: l 11:00: Lovenox) Flagyl 2016-05 No Notes: Memoria 0-30 (Same as: l 11:00: Flagyl) Avoid alcohol. Robaxin 2016-05 No Notes: Memoria 0-30 (Same l 11:00: as:Robaxin ) acetaminoph 2016-05 No Notes: Max Memoria en 0-30 acetaminop l 11:00: hen 4000 mg/day (4 gm/day). (Same as: Tylenol Extra Strength) Entereg 2016-05 No Notes: Memoria 0-30 Same as: l 11:00: Entereg Maximum of 15 doses Alert Restricted medication Alvimopan (Entergen) order form must be completed prior to dispensing . amlodipine amlodipine No 1 Q1D amlodipine [place] 10 mg 10 mg 10 mg da tablet Take tablet Take tablet [facility] 1 tablet 1 tablet Take 1 al every day every day tablet Hea lth by oral by oral every day Outr eac route. route. by oral h route. Program aspirin aspirin No aspirin [place] [facility] balsalazide balsalazide No balsalazid [place] 750 mg 750 mg e 750 mg da capsule capsule capsule [facility] Take 3 Take 3 Take 3 al capsules 3 capsules 3 capsules 3 Health times a day times a day times a Outreac by oral by oral day by h route for route for oral route Program 90 days. 90 days. for 90 days. ezetimibe ezetimibe No ezetimibe [place] 10 mg 10 mg 10 mg da tablet Take tablet Take tablet [facility] 1 tablet 1 tablet Take 1 al every day every day tablet Hea lth by oral by oral every day Outr eac route. route. by oral h route. Program fluvastatin fluvastatin No 1 Q1D fluvastati [place] ER 80 mg ER 80 mg n ER 80 mg d a tablet,exte tablet,exte tablet,ext [facility] nded nded ended al release 24 release 24 release 24 Health hr Take 1 hr Take 1 hr Take 1 Outreac tablet tablet tablet h every day every day every day Program by oral by oral by oral route. route. route. ICaps ICaps No ICaps [place] [facility] levothyroxi levothyroxi No 1capsul Q1D levothyrox [place] ne 75 mcg ne 75 mcg e(s) ine 75 mcg da capsule capsule capsule [facility] Take 1 Take 1 Take 1 al capsule capsule capsule Health every day every day every day Outreac by oral by oral by oral h route. route. route. Program Protonix 20 Protonix 20 No 1 Q1D Protonix [place] mg mg 20 mg da tablet,jeb tablet,jeb tablet,del [facility] yed release yed release ayed a l Take 1 Take 1 release Health tablet tablet Take 1 Outreac every day every day tablet h by oral by oral every day Prog tay route. route. by oral route. quinapril quinapril No quinapril [place] 20 mg 20 mg 20 mg da tablet Take tablet Take tablet [facility] 1 tablet 1 tablet Take 1 al every day every day tablet Hea lth by oral by oral every day Outr eac route. route. by oral h route. Program Vitamin B6 Vitamin B6 No Vitamin B6 [place] [facility] Vitamin D3 Vitamin D3 No Vitamin D3 [place] [facility] Vital Signs Vital Name Observation Time Observation Value Comments Source Height 2020-01-04 00:00:00 61 [in_i] [place] [facility] BP Diastolic 2019-07-21 00:00:00 168 mm[Hg] [place] [facility] Height 2019-07-21 00:00:00 61 [in_i] [place] [facility] BMI (Body Mass 2019-07-21 00:00:00 28.3 kg/m2 [facility] [facility] BP Systolic 2019-07-21 00:00:00 210 mm[Hg] [place] [facility] Body Weight 2019-07-21 00:00:00 149.8 [lb_av] [place] [facility] Height 2019-06-28 00:00:00 61 [in_i] [place] [facility] BMI (Body Mass 2019-06-28 00:00:00 28.5 kg/m2 [facility] [facility]) [facility] Body Weight 2019-06-28 00:00:00 151 [lb_av] [place] [facility] Systolic blood 2019-06-27 10:51:00 182 mm[Hg] [place] [facility] pressure Diastolic blood 2019-06-27 10:51:00 75 mm[Hg] [facility] on [facility] pressure Heart rate 2019-06-27 10:51:00 63 /min [facility] Body height 2019-06-27 10:51:00 157.5 cm [facility] Body weight 2019-06-27 10:51:00 67.132 kg [facility] BMI 2019-06-27 10:51:00 27.07 kg/m2 [facility] BMI Calculated 2018-11-01 18:08:00 Memori al [place] Weight 2018-11-01 18:08:00 [facility] [place] Height 2018-11-01 18:08:00 160.02 cm [facility] Price Heart Rate 2018-11-01 18:08:00 [facility] [place] Systolic (mm Hg) 2018-11-01 18:08:00 Kelvin rial Price Diastolic (mm Hg) 2018-11-01 18:08:00 Mem orial Rayle Weight 2018-05-03 19:28:00 [facility] Price BMI Calculated 2018-05-03 19:28:00 Memori al [place] Height 2018-05-03 19:28:00 160.02 cm [facility] [place] Systolic (mm Hg) 2018-05-03 19:28:00 Kelvin rial Rayle Diastolic (mm Hg) 2018-05-03 19:28:00 Mem orial Ray[place] Systolic (mm Hg) 2018-04-08 18:35:00 Kelvin rial Ray[place] Diastolic (mm Hg) 2018-04-08 18:35:00 Mem orial Price Respitory Rate 2018-04-08 18:35:00 Memori al Price Systolic (mm Hg) 2018-04-08 18:05:00 Kelvin rial Rayle Diastolic (mm Hg) 2018-04-08 18:05:00 Mem orial Price Respitory Rate 2018-04-08 18:05:00 Memori al [place] Systolic (mm Hg) 2018-04-08 17:50:00 Kelvin rial Price Diastolic (mm Hg) 2018-04-08 17:50:00 Mem orial Rayle Respitory Rate 2018-04-08 17:50:00 Memori al [place] Weight 2018-04-08 12:07:00 [facility] [place] BMI Calculated 2018-04-08 12:07:00 Memori al Price Heart Rate 2018-03-31 18:19:00 [facility] [place] Height 2018-03-31 17:31:00 160.02 cm [facility] Ray[place] Height 2017-10-05 20:09:00 160.02 cm [facility] [place] Weight 2017-10-05 20:09:00 [facility] Price BMI Calculated 2017-10-05 20:09:00 Memori al [place] Systolic (mm Hg) 2017-10-05 20:09:00 Kelvin rial Price Diastolic (mm Hg) 2017-10-05 20:09:00 Mem orial Rayle Respitory Rate 2017-05-03 22:15:00 Memori al [place] Systolic (mm Hg) 2017-05-03 22:15:00 Kelvin rial Rayle Diastolic (mm Hg) 2017-05-03 22:15:00 Mem orial Rayle Respitory Rate 2017-05-03 21:45:00 Memori al [place] Systolic (mm Hg) 2017-05-03 21:45:00 Kelvin rial Rayle Diastolic (mm Hg) 2017-05-03 21:45:00 Mem orial Price Systolic (mm Hg) 2017-05-03 21:23:00 Kelvin rial Rayle Diastolic (mm Hg) 2017-05-03 21:23:00 Mem orial Rayle Respitory Rate 2017-05-03 21:23:00 Memori al [place] Heart Rate 2017-05-03 17:05:00 Memorial [place] BMI Calculated 2017-05-03 17:05:00 Memori al [place] Weight 2017-05-03 17:05:00 [facility] [place] Height 2017-04-30 22:34:00 154.94 cm Memorial Ray[place] Temperature Oral (F) 2017-03-31 20:57:00 98.8 F [facility] Price Respitory Rate 2017-03-31 20:57:00 Memori al Price Heart Rate 2017-03-31 20:57:00 Memorial Price Systolic (mm Hg) 2017-03-31 20:57:00 Kelvin rial Rayle Diastolic (mm Hg) 2017-03-31 20:57:00 Mem orial Price Respitory Rate 2017-03-31 16:51:00 Memori al Price Systolic (mm Hg) 2017-03-31 16:51:00 Kelvin rial Price Diastolic (mm Hg) 2017-03-31 16:51:00 Mem orial Price Temperature Oral (F) 2017-03-31 16:51:00 98.3 F [facility] Price Heart Rate 2017-03-31 16:51:00 Memorial Price Systolic (mm Hg) 2017-03-31 14:51:00 Kelvin rial Price Diastolic (mm Hg) 2017-03-31 14:51:00 Mem orial Price Heart Rate 2017-03-31 14:51:00 Memorial Price Respitory Rate 2017-03-31 13:00:00 Memori al Price Temperature Oral (F) 2017-03-31 13:00:00 98.1 F [facility] [place] Weight 2017-03-29 18:17:00 Memorial Price Height 2017-03-29 18:17:00 160.02 cm [facility] Price BMI Calculated 2017-03-29 18:17:00 Memori al Price Height 2017-03-23 16:10:00 157.48 cm [facility] Price Weight 2017-03-23 16:10:00 [facility] Price BMI Calculated 2017-03-23 16:10:00 Memori al [place] Procedures Procedure Date / Time Performed Performing Clinician [facility] e Colonoscopy 2018-04-08 06:00:00 Memorial Her nava Removal of 2018-04-08 06:00:00 [facility] Her nava Port-a-cath<sup>1</sup> Laparoscopic-assisted 2017-03-29 05:00:00 Memori al [place] right colectomy Plan of Care Planned Activity Planned Date Details Comments Source Diagnostic Test 2020-01-04 calprotectin, stool [place] Pending 00:00:00 [code = calprotectin, [facility] stool] [facility] Diagnostic Test 2020-01-04 CBC w/ auto diff [place] Pending 00:00:00 [code = CBC w/ auto [facility] diff] [facility] Diagnostic Test 2020-01-04 CMP, serum or plasma [facility] Pending 00:00:00 [code = CMP, serum or [facility] plasma] [facility] Diagnostic Test 2020-01-04 urinalysis, complete [facility] Pending 00:00:00 [code = urinalysis, [facility] complete] [facility] Diagnostic Test 2020-01-04 vitamin D, [place] Pending 00:00:00 1,25-dihydroxy, serum [facility] [code = vitamin D, [facility] 1,25-dihydroxy, serum] Future Scheduled 2019-12-30 INFLUENZA VACCINE [place] [facility] 00:00:00 [code = INFLUENZA VACCINE] Future Scheduled 2000 65+ PNEUMOCOCCAL Sr [facility] Test 00:00:00 VACCINE (1 of 1 - PPSV23) [code = 65+ PNEUMOCOCCAL VACCINE (1 of 1 - PPSV23)] Future Scheduled 1985 SHINGLES VACCINES [place] [facility] 00:00:00 (#1) [code = SHINGLES VACCINES (#1)] Encounters Start End Encounter Admission Attending Care Care Encounter Source Date/Time Date/Time Type Type Clinicians Facility Department ID 2020-01-04 2020-01-04 Randy DIETZ [place] - [id number] [place] 00:00:00 00:00:00 Shaye Read MD: [id number] [facility] copyright expert [place] [address] [facility] [address] [facility] [place] [phone] , Ph. 2019-07-21 2019-07-21 Randy DIETZ [place] - [id number] [place] 00:00:00 00:00:00 Shaye Read MD: [id number] [facility] [employer] copyright expert [place] [address] [facility] [address] [facility] [place] Program [phone] , Ph. 2019-06-28 2019-06-28 Randy DIETZ [place] - [id number] [facility] 00:00:00 00:00:00 Shaye Read MD: [id number] [employer] copyright expert [place] [address] [facility] [address] [phone] , Ph. 2018-11-02 2018-11-03 Outpatient [facility] MH[facility] [id number] 16:57:18 16:57:18 19 2018-11-01 2018-11-01 Outpatient Read, [facility] [id number] 13:00:00 23:59:59 Randy Tee 11 2018-05-18 2018-05-18 Outpatient Josh Judi MHOIP MHOIP [id number] 14:05:00 23:59:00 03 2018-05-03 2018-05-03 Outpatient Jacek, [facility] MH[facility] [id number] 13:00:00 23:59:59 Randy Tee 10 2018-04-08 2018-04-08 Outpatient Samuel, MHSL MHSL [id number] 05:38:50 12:49:00 Jeff Huizar 13 2018-03-28 2018-03-29 Outpatient [facility] MHMG [id number] 09:56:00 23:59:59 10 2018-03-28 2018-03-28 Outpatient [facility] MHMG [id number] 12:45:00 23:59:59 09 2018-03-23 2018-03-24 Outpatient [facility] MH[facility] [id number] 17:26:00 23:59:59 09 2017-11-22 2017-11-22 Outpatient Josh, Judi MHOIP MHOIP [id number] 11:00:00 23:59:00 02 2017-10-05 2017-10-05 Outpatient Jacek, MHMG MHMG [id number] 15:00:00 23:59:59 Randy Tee 08 2017-09-13 2017-09-14 Outpatient MH92 MH92 [id number] 09:22:00 23:59:59 08 2017-05-10 2017-05-10 Outpatient Josh Judi MHOIP MHOIP [id number] 12:28:00 23:59:00 00 2017-05-03 2017-05-03 Outpatient SKYLAR Samuel [facility] [id number] 10:45:52 17:29:00 Jeff Huizar 12 2017-03-29 2017-03-31 Outpatient SKYLAR Samuel [facility] [id number] 05:41:43 18:29:00 Jeff Huizar 11 Results Test Description Test Time Test Comments Results Result Comments Source Comprehensive metabolic 2000 panel - Serum or Plasma 2019-05 00:00:00 Test Item Value Reference Range Interpretation Comme nts Glucose [Mass/volume] in Serum or Plasma (test code = 131 mg/dL 65-139 2345-7) Urea nitrogen [Mass/volume] in Serum or Plasma (test 17 mg/dL 7 -25 code = 3094-0) Creatinine [Mass/volume] in Serum or Plasma (test code 0.95 mg/dL 0.60-0.88 H = 2160-0) eGFR non-afr. maldivian (test code = eGFR non-afr. 55 mL/min/1.73m2 > or = 60 L maldivian) Glomerular filtration rate/1.73 sq M predicted among 64 mL/min/1 .73m2 > or = 60 blacks by Creatinine-based formula (MDRD) (test code = 87195-2) Urea nitrogen/Creatinine [Mass Ratio] in Serum or 18 (calc) 6-22 Plasma (test code = 3097-3) Sodium [Moles/volume] in Serum or Plasma (test code = 140 mmol/L 740-061 0028-2) Potassium [Moles/volume] in Serum or Plasma (test code 4.2 mmol/L 3.5-5.3 = 2823-3) Chloride [Moles/volume] in Serum or Plasma (test code 104 mmol/L 98-110 = 2075-0) Carbon dioxide, total [Moles/volume] in Serum or 29 mmol/L 20-32 Plasma (test code = 2027-9) Calcium [Mass/volume] in Serum or Plasma (test code = 9.3 mg/dL 8.6-10.4 64986-6) Protein [Mass/volume] in Serum or Plasma (test code = 6.6 g/dL 6.1-8.1 2885-2) Albumin [Mass/volume] in Serum or Plasma (test code = 4.1 g/dL 3.6-5.1 1750-7) Globulin [Mass/volume] in Serum by calculation (test 2.5 g/dL (calc ) 1.9-3.7 code = 35198-0) Albumin/Globulin [Mass Ratio] in Serum or Plasma (test 1.6 (calc) 1.0-2.5 code = 1759-0) Bilirubin.total [Mass/volume] in Serum or Plasma (test 0.6 mg/dL 0.2-1.2 code = 1974-2) Alkaline phosphatase [Enzymatic activity/volume] in 56 U/L 33 -130 Serum or Plasma (test code = 6768-6) Aspartate aminotransferase [Enzymatic activity/volume] 18 U/L 10-35 in Serum or Plasma (test code = 1920-8) Alanine aminotransferase [Enzymatic activity/volume] 7 U/L 6 -29 in Serum or Plasma (test code = 1742-6) [facility] 2019-06-30 00:00:00 Test Item Value Reference Range Interpretation Comments Erythrocyte sedimentation rate by 33 mm/h < or = 30 H Westergren method (test code = 4537-7) [facility] Auto Differential panel - Blood 2019-06-30 00:00:00 Test Item Value Reference Range Interpretation Comments Leukocytes [#/volume] in 7.3 thousand/uL 3.8-10.8 Blood by Automated count (test code = 6690-2) Erythrocytes [#/volume] in 3.76 million/uL 3.80-5.10 L Blood by Automated count (test code = 789-8) Hemoglobin [Mass/volume] in 11.2 g/dL 11.7-15.5 L Blood (test code = 718-7) Hematocrit [Volume Fraction] 35.3 % 35.0-45.0 of Blood by Automated count (test code = 4544-3) Erythrocyte mean corpuscular 93.9 fL 80.0-100.0 volume [Entitic volume] by Automated count (test code = 787-2) Erythrocyte mean corpuscular 29.8 pg 27.0-33.0 hemoglobin [Entitic mass] by Automated count (test code = 785-6) Erythrocyte mean corpuscular 31.7 g/dL 32.0-36.0 L hemoglobin concentration [Mass/volume] by Automated count (test code = 786-4) Erythrocyte distribution 13.1 % 11.0-15.0 width [Ratio] by Automated count (test code = 788-0) Platelets [#/volume] in Blood 190 thousand/uL 140-400 by Automated count (test code = 777-3) Platelet mean volume [Entitic 9.9 fL 7.5-12.5 volume] in Blood by Castillo-Haroldo (test code = 776-5) Neutrophils [#/volume] in 4606 cells/uL 8505-3256 Blood by Automated count (test code = 751-8) Lymphocytes [#/volume] in 1832 cells/uL 850-3900 Blood by Automated count (test code = 731-0) Monocytes [#/volume] in Blood 642 cells/uL 200-950 by Automated count (test code = 742-7) Eosinophils [#/volume] in 168 cells/uL 15-500 Blood by Automated count (test code = 711-2) Basophils [#/volume] in Blood 51 cells/uL 0-200 by Automated count (test code = 704-7) Neutrophils/100 leukocytes in 63.1 % Blood by Automated count (test code = 770-8) Lymphocytes/100 leukocytes in 25.1 % Blood by Automated count (test code = 736-9) Monocytes/100 leukocytes in 8.8 % Blood by Automated count (test code = 5905-5) Eosinophils/100 leukocytes in 2.3 % Blood by Automated count (test code = 713-8) Basophils/100 leukocytes in 0.7 % Blood by Automated count (test code = 706-2) [facility], [facility] 2019-06-30 00:00:00 Test Item Value Reference Range Interpretation Comments C reactive protein [Mass/volume] in 1.5 mg/L <8.0 Serum or Plasma (test code = 1987-09) [facility]25-Hydroxyvitamin D [Mass/volume] in Serum or Havsvi3742-52-93 00:00:00 Test Item Value Reference Range Interpretation Comments Calcidiol [Mass/volume] in Serum or 60 NG/mL 30-100 Plasma (test code = 1988-) [facility] INSKC1313-15-08 18:14:0077 [facility] BNFLG3770-92-44 18:14:000.73[facility]CHE[facility] PANEL 2018-03-31 18:14:72856Vnlqdiap HermannCHEM AEZYG7955-15-80 18:14:0013[facility]CHE[facility] DLQNK0346-08-86 18:14:0019[facility]annCHE[facility] RENFS2224-73-06 18:14:0060[facility]CHE[facility] ZZHKT4284-61-16 18:14:000.4[facility]annCHE[facility] MJMCL6685-96-52 18:14:007.3[facility]CHE[facility] TUBXW4462-19-04 18:14:008.9 [facility] KXEIN5031-05-44 18:14:0015[facility]annCHE[facility] PANEL 2018-03-31 18:14:003.5[facility]annCHE[facility] ZZDVQ0589-95-39 18:14:0030[facility]annCHE[facility] UQTPF6129-25-76 18:14:88008Brrgogjo HermannCHEM FAJGG6008-85-24 18:14:003.9[facility]annCHE[facility] DGKFQ0533-68-09 18:14:43216Ylrqqptq [facility]annCHE[facility] ZMKRT2104-96-01 18:14:003.8[facility]annCHE[facility] HGXSV3773-57-21 18:14:00 Test Item Value Reference Range Interpretation Comments A/G Ratio (test code = A/G Ratio) 0.9 1 0.7-1.6 [facility] NTUHX1729-19-30 18:14:00 Test Item Value Reference Range Interpretation Comments B/C Ratio (test code = B/C Ratio) 18 1 6-25 [facility] OXFGD2327-07-21 18:14:009.9[facility]annHEMATOLOGY 2018-03-31 18:14:000.0[facility] PjgoiodBOCJMPSTBG1661-06-17 18:14:000.0[facility] ZjqqvheDMSRGTOWSD6046-41-61 18:14:006.0[facility] GhvugykTIAJWVLCJJ1708-55-34 18:14:001.6[facility] UhldnyuXIAMOIYXWC8740-40-53 18:14:000.4[facility] KBKCHOBFAN9162-87-89 18:14:004.9[facility] EzhoitmACFTNVSMIZ8076-31-02 18:14:000.5 [facility] XkxikjoONYPMOMKPH3662-86-28 18:14:000.4[facility]annHEMATOLOGY 2018-03-31 18:14:0074.6[facility] AayzirzVKGYMMFOIJ1639-04-52 18:14:0019.6[facility] ZyggfzuVGZGMFHSNX1158-83-48 18:14:007.4[facility] HcaevxhUFLZZWSUWV8167-25-75 18:14:00 Test Item Value Reference Range Interpretation Comments MCH (test code = MCH) 31.7 pg 27.0-31.0 [facility] TxuyykoGOJCXAMMXG3706-44-80 18:14:0034.2[facility]annHEMATOLOGY 2018-03-31 18:14:0092.7[facility] DlbuzvrQWBEIFFAIV6452-77-42 18:14:008.0[facility] UjxjimtIXZWDVTOVW4131-40-19 18:14:0015.8[facility] ZcdmnfjISVUEPJXHL5634-35-64 18:14:59822Shepabgd BsfvtbkEEAUOQFSYS2035-47-02 18:14:0034.4[facility] OTQMKYBHII1451-92-91 18:14:003.71[facility] OdleeeoJCMFZGLNDA2865-97-72 18:14:00 11.7[facility]annCHEM CFIHO5787-10-52 09:12:002.5[facility]annCHEM PANEL 2017-03-30 09:12:002.7[facility] TceqjuqAVYOAIFQNGIF2133-88-65 09:12:0012.3 [facility] KnmtpeoLDRQWKOQKMMP9132-50-57 09:12:0067[facility] HermannELECTROLYTES 2017-03-30 09:12:84558Bdkmsett ZevwkrrTAFQVOSGVDCD5357-25-86 09:12:007.7[facility] QjtlcbxNOAFJZGLDRGH2226-21-13 09:12:0025[facility] NbffxrtJXJBURJBHAIH0574-44-36 09:12:83858Fiknyalv WtzscciYVICVVYIRIRO0325-02-71 09:12:004.3[facility] FNJFGRLMPKFL7706-51-10 09:12:000.82[facility] LazwzjxDVTOWRGWYSGF6766-32-47 09:12:0011[facility] WmxhuhqPKYSTHOEYCYT1586-06-90 09:12:76734Rmgjvlhb [facility] DHTFCUHEWI4406-08-38 09:12:007.2[facility] PrpjvpxMKSAKXMORF8993-52-28 09:12:00 23.2[facility]annBLOOD BANK RZBXCIT2764-05-17 16:38:00Negative (03/23/17 11:38 AM)[facility]annCHEM MINSH4109-67-36 16:38:000.1[facility]annCHEM SRIWV0492-33-47 16:38:000.9[facility]annCHEM ZHQHL5895-38-10 16:38:0027 [facility]CHE[facility] NNMOT6567-03-60 16:38:003.8[facility]annCHEM PANEL 2017-03-23 16:38:0011.2[facility]annCHEM ZEIRU0591-47-97 16:38:003.6[facility]annCHEM QBEQF6781-05-20 16:38:007.4[facility]annCHEM FYVVV4392-33-76 16:38:0011[facility]annCHEM BASBR7668-08-73 16:38:004.2[facility]annCHEM GEBRV0988-99-63 16:38:96060Hiodlvwe HermannCHEM HRBEO6518-21-36 16:38:54381 [facility]CHE[facility] UWCSD8917-35-67 16:38:0022[facility]annCHEM PANEL 2017-03-23 16:38:000.82[facility]annCHEM FXHEN2797-34-01 16:38:78783Tfmqvypj HermannCHEM LJKWG5920-92-37 16:38:0067[facility]annCHE[facility] XCPGY8037-89-18 16:38:008.7[facility]annCHEM FTLKN0457-88-56 16:38:0028[facility]annCHEM NWEAG8719-01-36 16:38:0058[facility]annCHEM UIKMD0229-11-66 16:38:0014 [facility]annCHE[facility] KYZZP1222-61-23 16:38:000.4[facility]annHEMATOLOGY 2017-03-23 16:38:007.2[facility] DmndykeXXROXJLGTB8359-17-93 16:38:0025.9[facility] CbtgiypGVSOHAHSYN0162-00-49 16:38:0031.8[facility] RtldjmyNMEWUMFPCY1210-53-11 16:38:0017.7[facility] TmsoutfKOMSPADIAY7138-20-68 16:38:26334Lfmadhbf [facility] MRKYPBSGJW9415-55-66 16:38:00 Test Item Value Reference Range Interpretation Comments MCH (test code = MCH) 23.6 pg 27.0-31.0 [facility] WsnysadHEPUJMOQBL0307-75-79 16:38:0074.2[facility]annHEMATOLOGY 2017-03-23 16:38:003.48[facility] SvjfyltRMZJAXRWKY4404-18-31 16:38:008.2[facility] SjsjliaPRKRNOWKQU2533-11-46 16:38:008.5[facility] TppnqggNJEWELALQX0342-99-58 16:38:000.6[facility] YhyisyjMRIMYYXGDO0735-48-31 16:38:000.0[facility] FTFBFWDQJV7253-85-92 16:38:000.1[facility] HkkzhnhCMNSWPBXMV6135-86-39 16:38:00 59.4[facility] TiqbdivUSQHXMXFJJ1374-30-67 16:38:0032.4[facility] HermannHEMATOLOGY 2017-03-23 16:38:006.9[facility] ZdavupcRGSWCOXKML9432-07-61 16:38:000.8[facility] UqehwfsIFKAUAGMHZ0294-73-70 16:38:002.8[facility] WedzkkfNMNIHWIUOI6842-52-50 16:38:000.5[facility] SobpypeIJXMHOMYCE0004-39-59 16:38:005.1[facility] AGYCIKQADG4395-93-91 16:38:00 Test Item Value Reference Range Interpretation Comments PTT (test code = PTT) 30.6 s 22.9-35.8 [facility] ShbvkwnEJJIHYMDAO9227-25-62 16:38:00 Test Item Value Reference Range Interpretation Comments PT (test code = PT) 13.8 s 12.0-14.7 [facility] GqqwnykREBGIRRASE8567-81-26 16:38:001.06[facility] HermannTUMOR MARKERS 2017-03-23 16:38:001.8[facility]annURINE AND MQBMQ2933-24-88 16:38:00Negative (03/23/17 11:38 AM)[facility] AND KAZZQ0315-44-43 16:38:00Negative *NA*(03/23/17 11:38 AM)[facility] TJFDV2626-51-66 16:38:008.0 [facility] HRJFL7841-06-72 16:38:001.009[facility] AND IHBUX7245-92-78 16:38:00Slight *ABN*(03/23/17 11:38 AM)[facility] QTMTP0356-76-10 16:38:00Yellow *NA*(03/23/17 11:38 AM)[facility] NUNPY4577-17-49 16:38:00Negative (03/23/17 11:38 AM)[facility] TSVXE8795-90-89 16:38:00Negative (03/23/17 11:38 AM)[facility] DUAVI7046-61-37 16:38:00<1[facility] AND XCAPG7475-99-44 16:38:002[facility]annBLOOD BANK BDOGYPG3152-76-78 16:25:00Product available (03/23/17 11:25 AM)[facility]
[2020-05-10] MEDS ORDERED: LIDOCAINE 1% W/EPI 1:100,000 MDV 50 ML VIAL ONE (11:41)
--- NOTE | 2020-05-10 11:55 | EDPHYS ---
Physician Documentation [facility] Name: Chasity Aguilar Age: 84 yrs Sex: Female : 1935 Arrival Date: 05/10/2020 Time: 10:40 Bed 6 Private MD: ED Physician King Mccoy HPI: 05/10 11:20 This 84 yrs old Female presents to ER via Ambulatory with complaints of cp Abscess. 11:20 The patient presents with an abscess of the right facial cheek. cp 11:20 Onset: The symptoms/episode began/occurred 1 week(s) ago. cp 11:20 Possible cause(s): unknown. cp 11:20 Associated signs and symptoms: Pertinent negatives: discharge, drainage, fever. cp 11:20 Patient reports known history of hypertension. States blood pressure always elevated at physician's office. Historical: - Allergies: 11:07 PENICILLINS; em - PMHx: 11:07 Cancer; Hypothyroidism; Hypertension; em - PSHx: 11:07 colon resection; em - Immunization history:: Adult Immunizations up to date. - Social history:: Smoking status: Patient denies any tobacco usage or history of. ROS: 11:25 Constitutional: Negative for body aches, chills, fever. cp 11:25 Cardiovascular: Negative for chest pain. 11:25 Respiratory: Negative for cough, shortness of breath. 11:25 Abdomen/GI: Negative for abdominal pain, nausea, vomiting, and diarrhea. 11:25 Skin: Positive for abscess, of the right facial cheek. 11:25 Neuro: Negative for altered mental status, headache, weakness. 11:25 All other systems are negative. Exam: 11:30 Constitutional: The patient appears in no acute distress, alert, awake, well developed, cp well nourished. 11:30 Head/Face: Normocephalic, atraumatic. cp 11:30 Cardiovascular: Rate: normal. 11:30 Respiratory: the patient does not display signs of respiratory distress, Respirations: normal. 11:30 Skin: abscess, that is small, of the right facial cheek, cellulitis, that is minimal, on the right facial cheek. Vital Signs: 11:03 BP 218 / 75; Pulse 73; Resp 18; Temp 98.4(O); Pulse Ox 100% on R/A; Weight 65.77 kg; em Height 5 ft. 3 in. (160.02 cm); Pain 0/10; 11:03 Body Mass Index 25.69 (65.77 kg, 160.02 cm) em MDM: 11:04 Patient medically screened. cp 11:53 Data reviewed: vital signs, nurses notes. cp 11:53 Differential diagnosis: abscess, allergic reaction, cellulitis, insect bite. cp Counseling: I had a detailed discussion with the patient and/or guardian regarding: the historical points, exam findings, and any diagnostic results supporting the discharge/admit diagnosis, the presence of at least one elevated blood pressure reading (>120/80) during this emergency department visit, the need for outpatient follow up, a family practitioner, to return to the emergency department if symptoms worsen or persist or if there are any questions or concerns that arise at home. Response to treatment: the patient's symptoms have markedly improved after treatment, and as a result, I will discharge patient. 05/10 11:14 Order name: I\T\D Setup; Complete Time: 11:19 cp Administered Medications: No medications were administered Disposition: 12:05 Chart complete. cp Disposition: 05/10/20 11:54 Discharged to Home. Impression: Cutaneous abscess of face. - Condition is Stable. - Discharge Instructions: Skin Abscess, Incision and Drainage. - Prescriptions for Doxycycline Hyclate 100 mg Oral Tablet - take 1 tablet by ORAL route every 12 hours for 7 days; 14 tablet. - Medication Reconciliation Form, Thank You Letter, Antibiotic Education, Prescription Opioid Use form. - Follow up: Private Physician; When: 1 - 2 days; Reason: Worsening of condition. - Problem is new. - Symptoms have improved. Addendum: 05/12/2020 17:39 Co-signature as Attending Physician, King Mccoy MD I agree with the assessment and k dr plan of care. Signatures: Tiana Pillai RN RN sv Rittger, Kevin, MD MD [facility] Tone Mccabe RN RN em Roberto Jones PA PA cp Corrections: (The following items were deleted from the chart) 05/10 12:04 11:54 05/10/2020 11:54 Discharged to Home. Impression: Cutaneous abscess of face. sv Condition is Stable. Forms are Medication Reconciliation Form, Thank You Letter, Antibiotic Education, Prescription Opioid Use. Follow up: Private Physician; When: 1 - 2 days; Reason: Worsening of condition. Problem is new. Symptoms have improved. cp
--- NOTE | 2020-05-10 11:55 | ER ---
Nurse's Notes [facility] Name: Chasity Aguilar Age: 84 yrs Sex: Female : 1935 Arrival Date: 05/10/2020 Time: 10:40 Bed 6 Private MD: Diagnosis: Cutaneous abscess of face Presentation: 05/10 11:03 Chief complaint: Patient states: abscess to right side of face for about 1 week, denies em pain or fever, marble size abscess noted to the right cheek. Coronavirus screen: Client denies travel out of the [place] in the last 14 days. Ebola Screen: Patient negative for fever greater than or equal to 101.5 degrees Fahrenheit, and additional compatible Ebola Virus Disease symptoms Patient denies exposure to infectious person. Patient denies travel to an Ebola-affected area in the 21 days before illness onset. No symptoms or risks identified at this time. Initial Sepsis Screen: Does the patient meet any 2 criteria? No. Patient's initial sepsis screen is negative. Does the patient have a suspected source of infection? Yes: Skin breakdown/wound. Risk Assessment: Do you want to hurt yourself or someone else? Patient reports no desire to harm self or others. Onset of symptoms was May 06, 2020. 11:03 Method Of Arrival: Ambulatory em 11:03 Acuity: NATE 2 em Historical: - Allergies: 11:07 PENICILLINS; em - PMHx: 11:07 Cancer; Hypothyroidism; Hypertension; em - PSHx: 11:07 colon resection; em - Immunization history:: Adult Immunizations up to date. - Social history:: Smoking status: Patient denies any tobacco usage or history of. Screenin:15 Abuse screen: Denies threats or abuse. Denies injuries from another. Nutritional sv screening: No deficits noted. Tuberculosis screening: No symptoms or risk factors identified. Fall Risk None identified. Assessment: 11:10 General: Appears in no apparent distress. uncomfortable, well developed, Behavior is sv calm, cooperative, appropriate for age. Pain: Complains of pain in right cheek and right mandible. Pain: Denies pain. Neuro: Level of Consciousness is awake, alert, obeys commands, Oriented to person, place, time, situation, Moves all extremities. Full function Gait is steady. Respiratory: Respiratory effort is even, unlabored, Respiratory pattern is regular, symmetrical. Derm: Skin is intact, Skin is pink, warm \T\ dry. Abscess located on right cheek is quarter sized, is red, is raised. Musculoskeletal: Range of motion: intact in all extremities. 12:03 Reassessment: Patient appears in no apparent distress at this time. Patient and/or sv family updated on plan of care and expected duration. Pain level reassessed. Patient is alert, oriented x 3, equal unlabored respirations, skin warm/dry/pink. Patient states symptoms have improved. Vital Signs: 11:03 BP 218 / 75; Pulse 73; Resp 18; Temp 98.4(O); Pulse Ox 100% on R/A; Weight 65.77 kg; em Height 5 ft. 3 in. (160.02 cm); Pain 0/10; 11:03 Body Mass Index 25.69 (65.77 kg, 160.02 cm) em ED Course: 10:40 Patient arrived in ED. as 11:00 Roberto Jones PA is PHCP. cp 11:00 King Mccoy MD is Attending Physician. cp 11:06 Triage completed. em 11:07 Arm band placed on. em 11:15 Patient has correct armband on for positive identification. Bed in low position. Call light in reach. 11:16 Tinaa Pillai, JUDITH is Primary Nurse. 11:30 Assist provider with I \T\ D: of an abscess on right cheek Set up I\T\D tray. Performed by Roberto GORDON Dressing with 4X4s, tape Patient tolerated well. Patient did not have IV access during this emergency room visit. Administered Medications: No medications were administered Outcome: 11:54 Discharge ordered by . cp 12:03 Discharged to home ambulatory, with family. sv 12:03 Condition: stable 12:03 Condition: improved 12:03 Discharge instructions given to patient, Instructed on discharge instructions, follow up and referral plans. medication usage, wound care, Demonstrated understanding of instructions, follow-up care, medications, wound care, Prescriptions given X 1. 12:04 Patient left the ED. Signatures: Tiana Pillai RN RN Tone Mccabe RN RN Lucy Morgan as Roberto Jones PA PA cp
[2020-05-15 03:36] VITALS: BP 218/75; TEMP 98.4; O2SAT 100
== END 2020-05-10 12:04 | disposition home or self-care (01) ==
LOC: ER 10:37
PROC: 0J910ZZ Drainage of Face Subcutaneous Tissue and Fascia, Open Approach (ICD-10-PCS; principal; 2020-05-10)
DX: L02.01 Cutaneous abscess of face (principal); I10 Essential (primary) hypertension; Z88.0 Allergy status to penicillin
CPT/HCPCS: 99283